=== PATIENT | female | born 1945 | race Caucasian/White ===

== ENCOUNTER → 2016-05-21 | Outpatient (CLI) | payer MEDICARE ==
[~2016-05-21] MED LIST: ACHD5005 PO; ACYC30OI TP; ALBU0.632 IH; ALLO100T PO; ALPR.5T PO; ASP81TEC PO; BUDE6HFA IH; DICY10CA12 PO; DICY10CA26 PO; DIOVAN; GBPN100C PO; INHALER; LEVO100T7 PO; LVT.112T PO; METH-290 PO; METO-272 PO; MOME13HF IH; NF-ESOM40C PO; ORPH100T PO; OXYGEN; PANT40TA3 PO; RITALIN; SIMV20TA3 PO; SIMV40TA4 PO; SYNTHROID; TRAM-42 PO; UBIQUINOL PO; VALA10004 PO; VALS1TAB15 PO; VALS1TAB80 PO; WRF2.5T PO
--- NOTE | 2016-05-21 18:37 | Diagnostic Imaging Report ---
Bilateral screening mammogram. The current study was also evaluated with a Computer Aided Detection (CAD) system. INDICATION: Screening. No current complaints stated on the questionnaire. COMPARISON: 05/17/15. FINDINGS: The breasts are composed of scattered fibroglandular densities. There are scattered benign-appearing calcifications. Allowing for technique and positional differences, no suspicious change is seen. IMPRESSION: No significant change. ACR BI-RADS Category 2: Benign findings. Result letter will be mailed to the patient. Note: At least 10% of breast cancer is not imaged by mammography. Dictated by: Dictated on workstation # [id number]
== END ==
LOC: RAD 10:02
DX: Z12.31 Encounter for screening mammogram for malignant neoplasm of breast (principal)

== ENCOUNTER → 2016-07-10 | Outpatient (CLI) | payer MEDICARE ==
--- OUTSIDE RECORDS SUMMARY | 2016-07-10 09:07 | XMS REPORT | Continuity of Care Document ---
Author Author [facility] Organization [facility] Address Unknown Phone Unavailable Allergies Active Description Code Type Severity Reaction Onset Reported/Identified Relationship to Patient Clinical Status Yes codeine [id number] Drug Allergy Unknown "MAKES ME CRAZY 08/13/2015 Medications 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 07/01/2011 Ot 562.10 DIVERTICULOSIS COLON (W/O MENT OF HEMORR 07/01/2011 Ot V58.69 OTH MED,LT,CURRENT USE 07/01/2011 Ot V76.51 SCREEN MAL NEOP-COLON 10/08/2011 Ot 272.4 HYPERLIPIDEMIA NEC/NOS 10/08/2011 Ot 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, WITHOUT CATAPLEXY 10/08/2011 Ot 401.9 HYPERTENSION NOS 10/08/2011 Ot 414.01 CORONARY ATHEROSCLEROSIS OF [place] CORON 10/08/2011 Ot 786.09 RESPIRATORY ABNORM NEC 10/08/2011 Ot 786.59 CHEST PAIN NEC 10/08/2011 Ot V58.69 OTH MED,LT,CURRENT USE 10/08/2011 Ot V85.38 BODY MASS INDEX 38.0-38.9, ADULT 11/13/2011 Ot 272.4 HYPERLIPIDEMIA NEC/NOS 11/13/2011 Ot 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, WITHOUT CATAPLEXY 11/13/2011 Ot 356.9 IDIO PERIPH NEURPTHY NOS 11/13/2011 Ot 401.9 HYPERTENSION NOS 11/13/2011 Ot 434.91 CEREBRAL ART OCCLUSION NOS W CEREBRAL IN 11/13/2011 Ot 493.20 CHRONIC OBSTRUCTIVE ASTHMA, NOS 11/13/2011 Ot 530.81 ESOPHAGEAL REFLUX 11/13/2011 Ot 729.89 MUSCSKEL SYMPT LIMB NEC 11/13/2011 Ot 780.57 UNSPECIFIED SLEEP APNEA 11/13/2011 Ot 784.59 OTHER SPEECH DISTURBANCE 11/19/2011 Ot 244.9 HYPOTHYROIDISM NOS 11/19/2011 Ot 272.4 HYPERLIPIDEMIA NEC/NOS 11/19/2011 Ot 311 DEPRESSIVE DISORDER NEC 11/19/2011 Ot 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, WITHOUT CATAPLEXY 11/19/2011 Ot 401.9 HYPERTENSION NOS 11/19/2011 Ot 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, SPEECH LA 11/19/2011 Ot 438.20 LATE EFF-CEREBR DIS,HEMIPLEGIA AFFECTING 11/19/2011 Ot 438.82 OTH LATE EFF-CEREB DIS, DYSPHAGIA 11/19/2011 Ot 493.90 ASTHMA, UNSPECIFIED 11/19/2011 Ot 530.81 ESOPHAGEAL REFLUX 11/19/2011 Ot 724.2 LUMBAGO 11/19/2011 Ot 780.57 UNSPECIFIED SLEEP APNEA 11/19/2011 Ot 782.3 EDEMA 11/19/2011 Ot 787.20 DYSPHAGIA, UNSPECIFIED 11/19/2011 Ot V57.1 PHYSICAL THERAPY NEC 11/19/2011 Ot V57.21 ENCOUNTER FOR OCCUPATIONAL THERAPY 11/19/2011 Ot V57.3 CARE INVOLVING SPEECH-LANGUAGE THERAPY 11/19/2011 Ot V58.61 ANTICOAGULANTS,LT,CURRENT USE 01/14/2012 Ot 438.89 OTH LATE EFFECT-CEREBROVASCULAR DISEASE 01/14/2012 Ot 729.89 MUSCSKEL SYMPT LIMB NEC 01/14/2012 Ot V57.1 PHYSICAL THERAPY NEC 06/17/2012 Ot 327.26 SLEEP RELATED HYPOVENTILATION/HYPOXEMIA 06/17/2012 Ot 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, WITHOUT CATAPLEXY 05/23/2014 SABRA STEPHENS, MARNI Richey Ot V76.12 06/16/2014 LARISA STEPHENS, CÉSAR Anh Ot 244.9 06/16/2014 LARISA STEPHENS, CÉSAR Kamara Ot 272.4 06/16/2014 LARISA STEPHENS, CÉSAR Kamara Ot 278.01 06/16/2014 LARISA STEPHENS, CÉSAR Kamara Ot 289.0 06/16/2014 LARISA STEPHENS, CÉSAR Kamara Ot 347.00 06/16/2014 LARISA STEPHENS, CÉSAR Anh Ot 401.9 06/16/2014 LARISA STEPHENS, CÉSAR Kamara Ot 493.90 06/16/2014 LARISA STEPHENS, CÉSAR Kamara Ot V12.54 06/16/2014 LARISA STEPHENS, CÉSAR Kamara Ot V58.61 06/16/2014 LARISA STEPHENS, CÉSAR Anh Ot V58.69 06/16/2014 LARISA STEPHENS, CÉSAR Kamara Ot V85.38 05/10/2015 Ot V76.12 05/10/2015 Ot 715.35 05/10/2015 Ot 722.52 05/10/2015 Ot 724.02 05/10/2015 Ot 553.1 05/10/2015 Ot 789.00 05/10/2015 Ot 729.5 05/10/2015 Ot 729.81 05/10/2015 Ot 790.99 05/10/2015 Ot V76.12 05/10/2015 Ot 244.9 05/10/2015 Ot 272.4 05/10/2015 Ot 282.7 05/10/2015 Ot 401.9 05/10/2015 Ot 493.90 05/10/2015 Ot 530.81 05/10/2015 Ot 790.6 05/10/2015 Ot 790.99 05/10/2015 Ot V45.77 05/10/2015 Ot V58.69 05/10/2015 Ot 244.9 05/10/2015 Ot 272.4 05/10/2015 Ot 289.0 05/10/2015 Ot 347.00 05/10/2015 Ot 401.9 05/10/2015 Ot 493.90 05/10/2015 Ot V58.69 05/10/2015 Ot 786.59 05/10/2015 Ot 786.09 05/10/2015 Ot 786.09 05/10/2015 Ot 244.9 05/10/2015 Ot 272.4 05/10/2015 Ot 289.0 05/10/2015 Ot 347.00 05/10/2015 Ot 401.9 05/10/2015 Ot 493.90 05/10/2015 Ot V58.69 05/10/2015 Ot V76.12 05/10/2015 Ot 244.9 05/10/2015 Ot 272.4 05/10/2015 Ot 278.01 05/10/2015 Ot 289.0 05/10/2015 Ot 347.00 05/10/2015 Ot 401.9 05/10/2015 Ot 493.90 05/10/2015 Ot V12.54 05/10/2015 Ot V58.69 05/10/2015 Ot 289.0 05/10/2015 LARSIA STEPHENS, CÉSAR Kamara Ot 244.9 05/10/2015 LARISA STEPHENS, CÉSAR Kamara Ot 272.4 05/10/2015 LARISA STEPHENS, CÉSAR Kamara Ot 278.01 05/10/2015 LARISA STEPHENS, CÉSAR Kamara Ot 289.0 05/10/2015 LARISA STEPHENS, CÉSAR Kamara Ot 347.00 05/10/2015 LARISA STEPHENS, CÉSAR Kamara Ot 401.9 05/10/2015 LARISA STEPHENS, CÉSAR Kamara Ot 493.90 05/10/2015 LARISA STEPHENS, CÉSAR Kamara Ot V12.54 05/10/2015 LARISA STEPHENS, CÉSAR Kamara Ot V58.61 05/10/2015 LARISA STEPHENS, CÉSAR Kamara Ot V58.69 05/10/2015 SABRA STEPHENS, MARNI Richey Ot V76.12 05/10/2015 LARISA STEPHENS, CÉSAR Kamara Ot 244.9 05/10/2015 LARISA STEPHENS, CÉSAR Kamara Ot 272.4 05/10/2015 LARISA STEPHENS, CÉSAR Kamara Ot 278.01 05/10/2015 LARISA STEPHENS, CÉSAR Kamara Ot 289.0 05/10/2015 LARISA STEPHENS, CÉSAR Kamara Ot 347.00 05/10/2015 LARISA STEPHENS, CÉSAR Kamara Ot 401.9 05/10/2015 LARISA STEPHENS, CÉSAR Kamara Ot 493.90 05/10/2015 LARISA STEPHENS, CÉSAR Kamara Ot V12.54 05/10/2015 LARISA STEPHENS, CÉSAR Kamara Ot V58.61 05/10/2015 LARISA STEPHENS, CÉSAR Kamara Ot V58.69 05/10/2015 LARISA STEPHENS, CÉSAR Kamara Ot V85.38 05/10/2015 SABRA STEPHENS, MARNI Richey Ot V76.12 05/17/2015 Ot V76.12 05/17/2015 Ot 715.35 05/17/2015 Ot 722.52 05/17/2015 Ot 724.02 05/17/2015 Ot 553.1 05/17/2015 Ot 789.00 05/17/2015 Ot 729.5 05/17/2015 Ot 729.81 05/17/2015 Ot 790.99 05/17/2015 Ot V76.12 05/17/2015 Ot 244.9 05/17/2015 Ot 272.4 05/17/2015 Ot 282.7 05/17/2015 Ot 401.9 05/17/2015 Ot 493.90 05/17/2015 Ot 530.81 05/17/2015 Ot 790.6 05/17/2015 Ot 790.99 05/17/2015 Ot V45.77 05/17/2015 Ot V58.69 05/17/2015 Ot 244.9 05/17/2015 Ot 272.4 05/17/2015 Ot 289.0 05/17/2015 Ot 347.00 05/17/2015 Ot 401.9 05/17/2015 Ot 493.90 05/17/2015 Ot V58.69 05/17/2015 Ot 786.59 05/17/2015 Ot 786.09 05/17/2015 Ot 786.09 05/17/2015 Ot 244.9 05/17/2015 Ot 272.4 05/17/2015 Ot 289.0 05/17/2015 Ot 347.00 05/17/2015 Ot 401.9 05/17/2015 Ot 493.90 05/17/2015 Ot V58.69 05/17/2015 Ot V76.12 05/17/2015 Ot 244.9 05/17/2015 Ot 272.4 05/17/2015 Ot 278.01 05/17/2015 Ot 289.0 05/17/2015 Ot 347.00 05/17/2015 Ot 401.9 05/17/2015 Ot 493.90 05/17/2015 Ot V12.54 05/17/2015 Ot V58.69 05/17/2015 Ot 289.0 05/17/2015 LARISA STEPHENS, CÉSAR Kamara Ot 244.9 05/17/2015 LARISA STEPHENS, CÉSAR Kamara Ot 272.4 05/17/2015 LARISA STEPHENS, CÉSAR Kamara Ot 278.01 05/17/2015 LAIRSA STEPHENS, CÉSAR Kamara Ot 289.0 05/17/2015 LARISA STEPHENS, CÉSAR Kamara Ot 347.00 05/17/2015 LARISA STEPHENS, CÉSAR Kamara Ot 401.9 05/17/2015 LARISA STEPHENS, CÉSAR Kamara Ot 493.90 05/17/2015 LARISA STEPHENS, CÉSAR Kamara Ot V12.54 05/17/2015 LARISA STEPHENS, CÉSAR Kamara Ot V58.61 05/17/2015 LARISA STEPHENS, CÉSAR Kamara Ot V58.69 05/17/2015 SABRA STEPHENS, MARNI Richey Ot V76.12 05/17/2015 LARISA STEPHENS, CÉSAR Kamara Ot 244.9 05/17/2015 LARISA STEPHENS, CÉSAR Anh Ot 272.4 05/17/2015 LARISA STEPHENS, CÉSAR Kamara Ot 278.01 05/17/2015 LARISA STEPHENS, CÉSAR Kamara Ot 289.0 05/17/2015 LARISA STEPHENS, CÉSAR Kamara Ot 347.00 05/17/2015 LARISA STEPHENS, CÉSAR Anh Ot 401.9 05/17/2015 LARISA STEPHENS, CÉSAR Anh Ot 493.90 05/17/2015 LARISA STEPHENS, CÉSAR Kamara Ot V12.54 05/17/2015 LARISA STEPHENS, CÉSAR Kamara Ot V58.61 05/17/2015 LARISA STEPHENS, CÉSAR Kamara Ot V58.69 05/17/2015 LARISA STEPHENS, CÉSAR Kamara Ot V85.38 05/17/2015 SABRA STEPHENS, MARNI D Ot V76.12 05/17/2015 SABRA STEPHENS, MARNI D Ot M47.896 05/30/2015 SABRA STEPHENS, MARNI D Ot M47.896 06/09/2015 SABRA STEPHENS, MARNI D Ot M47.26 06/09/2015 SABRA STEPHENS, MARNI D Ot Z12.31 08/13/2015 ANDRE SUN DO Ot M54.6 PAIN IN THORACIC SPINE 08/13/2015 CORINNE ANDRE BUSTOS Ot R07.89 OTHER CHEST PAIN 08/14/2015 ANDRE SUN DO Ot M54.6 08/14/2015 ANDRE SUN DO Ot R07.89 08/15/2015 ANDRE SUN DO Ot M54.6 08/15/2015 CORINNE ANDRE BUSTOS Ot R07.89 05/21/2016 Ot 715.35 LOC OSTEOARTH NOS-PELVIS 05/21/2016 Ot 722.52 LUMB/LUMBOSAC DISC DEGEN 05/21/2016 Ot 724.02 SPINAL STENOSIS, LUMBAR REG, W/OUT NEURO 05/21/2016 Ot 553.1 UMBILICAL HERNIA 05/21/2016 Ot 789.00 ABDOMINAL PAIN, UNSPECIFIED SITE 05/21/2016 Ot 729.5 PAIN IN LIMB 05/21/2016 Ot 729.81 SWELLING OF LIMB 05/21/2016 Ot 790.99 BLOOD EXAM - OTH NONSPECIFIC FINDINGS 05/21/2016 Ot V76.12 OTH SCREEN MAMMO-MALIGN NEOPLASM OF [place] 05/21/2016 Ot 244.9 HYPOTHYROIDISM NOS 05/21/2016 Ot 272.4 HYPERLIPIDEMIA NEC/NOS 05/21/2016 Ot 282.7 HEMOGLOBINOPATHIES NEC 05/21/2016 Ot 401.9 HYPERTENSION NOS 05/21/2016 Ot 493.90 ASTHMA, UNSPECIFIED 05/21/2016 Ot 530.81 ESOPHAGEAL REFLUX 05/21/2016 Ot 790.6 ABN BLOOD CHEMISTRY NEC 05/21/2016 Ot 790.99 BLOOD EXAM - OTH NONSPECIFIC FINDINGS 05/21/2016 Ot V45.77 ACQRD ABSENCE OF GENITAL ORGANS 05/21/2016 Ot V58.69 OTH MED,LT,CURRENT USE 05/21/2016 Ot 244.9 HYPOTHYROIDISM NOS 05/21/2016 Ot 272.4 HYPERLIPIDEMIA NEC/NOS 05/21/2016 Ot 289.0 SECONDARY POLYCYTHEMIA 05/21/2016 Ot 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, WITHOUT CATAPLEXY 05/21/2016 Ot 401.9 HYPERTENSION NOS 05/21/2016 Ot 493.90 ASTHMA, UNSPECIFIED 05/21/2016 Ot V58.69 OTH MED,LT,CURRENT USE 05/21/2016 Ot 786.59 CHEST PAIN NEC 05/21/2016 Ot 786.09 RESPIRATORY ABNORM NEC 05/21/2016 Ot 786.09 RESPIRATORY ABNORM NEC 05/21/2016 Ot 244.9 HYPOTHYROIDISM NOS 05/21/2016 Ot 272.4 HYPERLIPIDEMIA NEC/NOS 05/21/2016 Ot 289.0 SECONDARY POLYCYTHEMIA 05/21/2016 Ot 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, WITHOUT CATAPLEXY 05/21/2016 Ot 401.9 HYPERTENSION NOS 05/21/2016 Ot 493.90 ASTHMA, UNSPECIFIED 05/21/2016 Ot V58.69 OTH MED,LT,CURRENT USE 05/21/2016 Ot V76.12 OTH SCREEN MAMMO-MALIGN NEOPLASM OF [place] 05/21/2016 Ot 244.9 HYPOTHYROIDISM NOS 05/21/2016 Ot 272.4 HYPERLIPIDEMIA NEC/NOS 05/21/2016 Ot 278.01 MORBID OBESITY 05/21/2016 Ot 289.0 SECONDARY POLYCYTHEMIA 05/21/2016 Ot 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, WITHOUT CATAPLEXY 05/21/2016 Ot 401.9 HYPERTENSION NOS 05/21/2016 Ot 493.90 ASTHMA, UNSPECIFIED 05/21/2016 Ot V12.54 PERSONAL HX OF TIA, CEREBRAL INFARCTION 05/21/2016 Ot V58.69 OTH MED,LT,CURRENT USE 05/21/2016 Ot 289.0 SECONDARY POLYCYTHEMIA 05/21/2016 CÉSAR PERES MD Ot 244.9 HYPOTHYROIDISM NOS 05/21/2016 LARISA STEPHENS, CÉSAR Kamara Ot 272.4 HYPERLIPIDEMIA NEC/NOS 05/21/2016 CÉSAR PERES MD Ot 278.01 MORBID OBESITY 05/21/2016 CÉSAR PERES MD Ot 289.0 SECONDARY POLYCYTHEMIA 05/21/2016 CÉSAR PERES MD Ot 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, WITHOUT CATAPLEXY 05/21/2016 LARISA STEPHENS CÉSAR Anh Ot 401.9 HYPERTENSION NOS 05/21/2016 LARISA STEPHENS, CÉSAR Anh Ot 493.90 ASTHMA, UNSPECIFIED 05/21/2016 LARISA STEPHENS CÉSAR Anh Ot V12.54 PERSONAL HX OF TIA, CEREBRAL INFARCTION 05/21/2016 LARISA STEPHENS CÉSAR Anh Ot V58.61 ANTICOAGULANTS,LT,CURRENT USE 05/21/2016 LARISA STEPHENS CÉSAR Anh Ot V58.69 OTH MED,LT,CURRENT USE 05/21/2016 MARNI MONTAÑO MD Ot V76.12 OTH SCREEN MAMMO-MALIGN NEOPLASM OF [place] 05/21/2016 CÉSAR PERES MD Ot 244.9 HYPOTHYROIDISM NOS 05/21/2016 CÉSAR PERES MD Ot 272.4 HYPERLIPIDEMIA NEC/NOS 05/21/2016 CÉSAR PERES MD Ot 278.01 MORBID OBESITY 05/21/2016 CÉSAR PERES MD Ot 289.0 SECONDARY POLYCYTHEMIA 05/21/2016 CÉSAR PERES MD Ot 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, WITHOUT CATAPLEXY 05/21/2016 LARISA STEPHENS CÉSAR Anh Ot 401.9 HYPERTENSION NOS 05/21/2016 LARISA STEPHENS, CÉSAR Anh Ot 493.90 ASTHMA, UNSPECIFIED 05/21/2016 LARISA STEPHENS CÉSAR Anh Ot V12.54 PERSONAL HX OF TIA, CEREBRAL INFARCTION 05/21/2016 LARISA STEPHENS CÉSAR Anh Ot V58.61 ANTICOAGULANTS,LT,CURRENT USE 05/21/2016 LARISA STEPHENS CÉSAR Anh Ot V58.69 OTH MED,LT,CURRENT USE 05/21/2016 LARISA STEPHENS CÉSAR Anh Ot V85.38 BODY MASS INDEX 38.0-38.9, ADULT 05/21/2016 MARNI MONTAÑO MD Ot V76.12 OTH SCREEN MAMMO-MALIGN NEOPLASM OF [place] 05/21/2016 MARNI MONTAÑO MD Ot M47.26 OTHER SPONDYLOSIS WITH RADICULOPATHY, TARI 05/21/2016 MARNI MONTAÑO MD Ot Z12.31 ENCNTR SCREEN MAMMOGRAM FOR MALIGNANT NE 05/21/2016 MARNI MONTAÑO MD Ot M47.896 OTHER SPONDYLOSIS, LUMBAR REGION 05/21/2016 MARNI MONTAÑO MD Ot Z12.31 ENCNTR SCREEN MAMMOGRAM FOR MALIGNANT NE 05/22/2016 MARNI MONTAÑO MD Ot Z12.31 ENCNTR SCREEN MAMMOGRAM FOR MALIGNANT NE 05/22/2016 MARNI MONTAÑO MD Ot Z12.31 ENCNTR SCREEN MAMMOGRAM FOR MALIGNANT NE 05/22/2016 MARNI MONTAÑO MD Ot Z12.31 ENCNTR SCREEN MAMMOGRAM FOR MALIGNANT NE 05/22/2016 MARNI MONTAÑO MD Ot Z12.31 ENCNTR SCREEN MAMMOGRAM FOR MALIGNANT NE 05/23/2016 MARNI MONTAÑO MD Ot Z12.31 ENCNTR SCREEN MAMMOGRAM FOR MALIGNANT NE 05/23/2016 MARNI MONTAÑO MD Ot Z12.31 ENCNTR SCREEN MAMMOGRAM FOR MALIGNANT NE 05/23/2016 MARNI MONTAÑO MD Ot Z12.31 ENCNTR SCREEN MAMMOGRAM FOR MALIGNANT NE 05/24/2016 MARNI MONTAÑO MD Ot Z12.31 ENCNTR SCREEN MAMMOGRAM FOR MALIGNANT NE 06/12/2016 MARNI MONTAÑO MD Ot Z12.31 ENCNTR SCREEN MAMMOGRAM FOR MALIGNANT NE Procedures Results Encounters ACCT No. Visit Date/Time Discharge Status Pt. Type Provider Facility Loc./Unit Complaint [id number] 08/13/2015 19:33:00 2015 22:21:00 DIS Emergency CORINNE DOANDRE [facility] ER CHEST TO BACK PAIN ON LEFT SIDE [id number] 04/28/2014 14:29:00 2013 23:59:59 CLS Outpatient MARNI MONTAÑO MD [facility] RAD SCREENING [id number] 06/15/2013 09:50:00 2013 23:59:59 CLS Outpatient CÉSAR PERES MD [facility] ONC [id number] 05/07/2013 09:57:00 2012 23:59:59 CLS Outpatient MARNI MONTAÑO MD [facility] RAD SCREENING [id number] 12/01/2012 09:43:00 2012 23:59:59 CLS Outpatient CÉSAR PERES MD [facility] ONC [id number] 05/21/2016 10:02:00 ACT Outpatient MARNI MONTAÑO MD [facility] RAD SCREENING [id number] 05/17/2015 08:22:00 ACT Outpatient MARNI MONTAÑO MD [facility] RAD LOW BACK PAIN,MAMMO SCREENING [id number] 05/10/2015 09:51:00 ACT Outpatient MARNI MONTAÑO MD [facility] RAD LOW BACK PAIN [id number] 05/10/2015 09:47:00 Document Registration [id number] 06/25/2012 11:16:00 Document Registration [id number] 06/16/2012 20:16:00 Document Registration [id number] 06/09/2012 09:34:00 Document Registration [id number] 05/04/2012 09:44:00 Document Registration [id number] 01/02/2012 13:37:00 Document Registration [id number] 12/10/2011 09:47:00 Document Registration [id number] 11/13/2011 12:50:00 Document Registration [id number] 11/11/2011 10:51:00 Document Registration [id number] 11/06/2011 14:11:00 Document Registration [id number] 10/08/2011 12:30:00 Document Registration [id number] 10/04/2011 13:36:00 Document Registration [id number] 09/26/2011 07:38:00 Document Registration [id number] 07/01/2011 07:10:00 Document Registration [id number] 05/28/2011 12:50:00 Document Registration [id number] 05/02/2011 09:02:00 Document Registration [id number] 04/30/2011 13:23:00 Document Registration [id number] 04/19/2011 08:08:00 Document Registration [id number] 03/29/2011 14:57:00 Document Registration [id number] 03/22/2011 08:05:00 Document Registration [id number] 12/28/2010 09:48:00 Document Registration [id number] 12/21/2010 08:12:00 Document Registration [id number] 05/01/2010 08:57:00 Document Registration
--- NOTE | 2016-07-10 12:39 | Diagnostic Imaging Report ---
PROCEDURE: US Carotid Duplex Bilateral. TECHNIQUE: Multiple real-time grayscale images were obtained over the carotid arteries in various projections bilaterally. Additional duplex Doppler and color Doppler images were also obtained. INDICATION: Carotid artery stenosis. FINDINGS: The previous carotid Doppler exam performed on 11/12/2011 noted mild atherosclerotic plaque involving both carotid systems but failed to show any sign of a hemodynamically significant stenosis. On this study, the internal carotid arteries were difficult to visualize. However, there does not appear to be any significant atherosclerotic plaque formation. The flow velocities also failed to show any sign of a hemodynamically significant stenosis of the common or internal carotid arteries. The flow velocities are as follows: Mid CCA: Right 53.9, left 98.5. Proximal ICA: Right 46.6, left 67.2. Mid ICA: Right 40.5, left 60.7. IC/CC: Right 0.9, left 0.7. Both vertebral arteries are identified and there is antegrade flow bilaterally. IMPRESSION: There is mild atherosclerotic disease involving both carotid systems, but there is no evidence for a hemodynamically significant stenosis of the common or internal carotid arteries. Overall, there has been no significant change since the prior exam. Dictated by: Dictated on workstation # [id number]
== END ==
LOC: RAD 09:03
DX: I65.23 Occlusion and stenosis of bilateral carotid arteries (principal)
CPT/HCPCS: 93880

== ENCOUNTER 2016-12-24 22:21 | Emergency (ER) | payer MEDICARE ==
[~2016-12-24] VITALS: Ht 167.6 cm; Wt 102.1 kg
[2016-12-24] MEDS ORDERED: LEVO88TA54 (22:35)
[2016-12-24] MEDS ORDERED: PENI500T (22:35)
--- NOTE | 2016-12-24 22:43 | ED EENT ---
History of Present Illness General Chief Complaint: Dental Problems/Pain Stated Complaint: BLEEDING AFTER DENTAL SURG, TAKES BLOOD THINNER Source: patient, other (dentist) Exam Limitations: no limitations History of Present Illness Time seen by provider: 22:38 Initial Comments Patient presents to ER by private conveyance with chief complaint of bleeding from the right upper gums after a dental procedure where she had bone graft from a dental root extraction. The procedure was today. The patient is on Coumadin. She feels she is getting some large clots ever doctor the clot out she had a gush of blood. She denies chest pain, nausea, shortness of breath. She has no prior coronary disease however she had a coronary catheter that was negative by Dr. Mcneil in a few days after that developed a CVA unrelated and after that is the reason why she is on Coumadin according the patient. She says she takes one half tablets on Mondays and and other days she take one tablet but is not sure what the doses. She did not take her Coumadin tonight. Denying dizziness or lightheadedness. Allergies and Home Medications Allergies Coded Allergies: codeine (Unverified Allergy, Unknown, "MAKES ME CRAZY", 08/13/15) Home Medications Allopurinol 100 Mg Tablet, 1 TAB PO DAILY, #90 (Reported) Alprazolam 0.5 Mg Tablet, 1 TAB PO TID PRN, (Reported) Hctz/Valsartan 1 Each Tablet, 1 TAB PO DAILY, (Reported) Levothyroxine Sodium 88 Mcg Tablet, #30 (Reported) Methylphenidate Hcl 10 Mg Tablet.sa, 20 MG PO TID, (Reported) Metoprolol Succinate 50 Mg Tab.sr.24h, 1 EACH PO DAILY, (Reported) Pantoprazole Sodium 40 Mg Tablet.dr, 1 TAB PO DAILY, #90 (Reported) Penicillin V Potassium 500 Mg Tablet, #32 (Reported) Simvastatin 20 Mg Tablet, 1 TAB PO DAILY, #90 (Reported) Tramadol HCl 50 Mg Tablet, 50 MG PO Q4H, #20 Prescribed by: ANDRE SUN on 08/13/153 Valacyclovir HCl 1,000 Mg Tablet, 1,000 MG PO TID, #30 Prescribed by: ANDRE SUN on 08/13/153 Valsartan/Hydrochlorothiazide 1 Each Tablet, 1 TAB PO DAILY, #90 (Reported) Warfarin Sod 2.5 Mg Tab, 4 MG PO DAILY@18, (Reported) Review of Systems Constitutional: No chills, No diaphoresis, No fever, No malaise Eyes: Denies Blindness, Denies Pain, Denies Photophobia Mouth: clots, pain (negligible), swelling, bloody discharge, previous injury Throat: denies pain, denies swelling, denies hoarse Respiratory: No cough, No short of breath Cardiovascular: No chest pain, No palpitations Gastrointestinal: No constipation, No diarrhea, No nausea, No vomiting Musculoskeletal: No back pain, No joint pain Skin: No pruritus, No rash Neurological: Denies Headache, Denies Numbness, Denies Paresthesia Past Aochnqt-Bixdja-Szsqti Hx Patient Social History Alcohol Use: Denies Use Recreational Drug Use: No Smoking Status: Never a Smoker Recent Foreign Travel: No Contact w/Someone Who Travel: No Recent Hopitalizations: No Immunizations Up To Date Date of Pneumonia Vaccine: Nov 11, 2011 Date of Influenza Vaccine: Jan 17, 2011 Seasonal Allergies Seasonal Allergies: No Surgeries HX Surgeries: Yes (HYSTERECTOMY/RECTAL FISTULA/GALLBLADDER REMOVED) Surgeries: Eye Surgery, Gallbladder, Hysterectomy, Rectal Respiratory Hx Respiratory Disorders: Yes Respiratory Disorders: Asthma Cardiovascular Hx Cardiac Disorders: Yes Cardiac Disorders: High Cholesterol, Hypertension Neurological Hx Neurological Disorders: No Reproductive System Hx 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, 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 Genitourinary Hx Genitourinary Disorders: No Gastrointestinal Hx Gastrointestinal Disorders: No Musculoskeletal Hx Musculoskeletal Disorders: Yes Musculoskeletal Disorders: Arthritis Endocrine Hx Endocrine Disorders: Yes Endocrine Disorders: Diabetes, Non-Insulin dep HEENT HX ENT Disorders: No Cancer Hx Cancer: No Psychosocial Hx Psychiatric Problems: Yes Behavioral Health Disorders: Anxiety Integumentary HX Skin/Integumentary Disorder: Yes (SHINGLES) Blood Transfusions Hx Blood Disorders: No Adverse Reaction to a Blood Tr: No Physical Exam Vital Signs Vital Sign - Last 12Hours 12/24/16 22:26 Temp 97.2 Pulse 81 Resp 20 B/P (MAP) 165/97 Pulse Ox 92 O2 Delivery Room Air General Appearance: WD/WN, no apparent distress Nose: normal inspection, No active bleeding Mouth/Throat: dental tenderness, pharynx swelling, pharynx tenderness, other ( bleeding right upper frontal part of her gums) Neck: non-tender, supple, normal inspection Cardiovascular: normal peripheral pulses, regular rate, rhythm Respiratory: lungs clear, normal breath sounds Neurologic/Psychiatric: alert, oriented x 3 Skin: normal color, warm/dry Progress/Results/Core Measures Results/Orders Lab Results Laboratory Tests Test 12/24/16 23:00 Range/Units White Blood Count 13.0 H 4.3-11.0 10^3/uL Red Blood Count 4.70 4.35-5.85 10^6/uL Hemoglobin 14.2 11.5-16.0 G/DL Hematocrit 44 35-52 % Mean Corpuscular Volume 93 80-99 FL Mean Corpuscular Hemoglobin 30 25-34 PG Mean Corpuscular Hemoglobin Concent 32 32-36 G/DL Red Cell Distribution Width 13.9 10.0-14.5 % Platelet Count 309 130-400 10^3/uL Mean Platelet Volume 9.5 7.4-10.4 FL Prothrombin Time 41.0 H 12.2-14.7 SEC INR Comment 4.2 H 0.8-1.4 Activated Partial Thromboplast Time 56 H 24-35 SEC My Orders Orders - SUZANNE HENNING Cbc No Diff (12/24/16 22:44) Protime With Inr (12/24/16 22:44) Partial Thromboplastin Time (12/24/16 22:44) Tranexamic Acid Injection (Cyklokapron I (12/24/16 22:45) Medications Given in ED Current Medications Medications Dose Ordered Sig/Kate Route Start Time Stop Time Status Last Admin Dose Admin Tranexamic Acid 1,000 mg ONCE ONCE IV 12/24/16 22:45 12/24/16 22:49 DC 12/24/16 22:59 1,000 MG Vital Signs/I&O Vital Sign - Last 12Hours 12/24/16 22:26 Temp 97.2 Pulse 81 Resp 20 B/P (MAP) 165/97 Pulse Ox 92 O2 Delivery Room Air Progress Note : Time: 22:50 Progress Note Patient feels that her bleeding has slowed considerably some but still every time she wakes up a clot has increased bleeding. Agreed with TXA impregnated gauze strictly to the site for at least 20 minutes and check PT/INR while holding pressure. I have encouraged her not to swallow her secretions and at the first sign of nausea she should we did give her some antinausea medicine. Her pain is under good control the time. We discussed the risks benefits and alternatives to stopping the Coumadin versus keeping the coming going and get her bleeding to stop and send her home a little TXA then it may be reasonable to just keep her on her Coumadin. Follow-up in a day or 2 with her PCP and/or dentist. Departure Impression Impression: Primary Impression: Surgical wound hemorrhage after dental procedure Additional Impression: Warfarin anticoagulation Disposition: HOME, SELF-CARE Condition: Improved Departure-Patient Inst. Decision time for Depature: 00:13 Referrals: MARNI MONTAÑO MD (PCP/Family) Primary Care Physician Patient Instructions: Anti-Clotting Medicines: Warfarin (Coumadin) Add. Discharge Instructions: Do not take your warfarin tonight or tomorrow. Plan on seeing your primary care physician in the next day or 2 to have your INR rechecked. It was 4.2 this night in the ER. If you're still having bleeding you should apply cotton gauze for the next 2 days directly to the site. If this does not stop the bleeding then you should take and apply 2-3 cc of the tranexamic acid solution to a rolled up piece of gauze and apply that directly to the socket. Hold that firmly in place and do not open her mouth for at least 30 minutes. Plan on contacting your dentist tomorrow. If you have new or worrisome symptoms such as fevers nausea or vomiting you can return to the ER. Do not swallow your secretions as this may contribute to nausea and vomiting. All discharge instructions reviewed with patient and/or family. Voiced understanding. Copy Copies To 1: MARNI MONTAÑO MD, TITUS J Dec 24, 2016 22:43
[2016-12-24] MEDS ORDERED: TRANEXAMIC ACID 100 MG/ML 10 ML INJECTION IV ONE (22:45)
[2016-12-24 23:13] LABS: MEAN PLATELET VOLUME 9.5 FL (7.4-10.4); RED BLOOD COUNT 4.7 10^6/uL (4.35-5.85); RED CELL DISTRIBUTION WIDTH 13.9 % (10.0-14.5)
[2016-12-24 23:28] LABS: INR 4.2 (0.8-1.4)
[2016-12-25 00:25] VITALS: BP 149/81
== END 2016-12-25 00:19 | disposition home or self-care (01) ==
LOC: EDUNIT# 22:21 → ER 22:23
DX: K91.840 Postprocedural hemorrhage of a digestive system organ or structure following a digestive system procedure (principal); F41.9 Anxiety disorder, unspecified; E11.9 Type 2 diabetes mellitus without complications; E78.00 Pure hypercholesterolemia, unspecified; I10 Essential (primary) hypertension; M19.90 Unspecified osteoarthritis, unspecified site; Z90.710 Acquired absence of both cervix and uterus; Z79.01 Long term (current) use of anticoagulants
CPT/HCPCS: 36415; 85027; 85610; 85730; 96374; 99282

== ENCOUNTER 2017-02-03 12:15 | Emergency (ER) | payer MEDICARE ==
[~2017-02-03] VITALS: Ht 167.6 cm; Wt 99.8 kg
[~2017-02-03 12:15] MED LIST changes: +LEVO88TA54; +PENI500T
[2017-02-03 12:44] LABS: BASOPHILS % (AUTO) 0 % (0-10); EOSINOPHILS # (AUTO) 0.1 10^3/uL (0.0-0.3); EOSINOPHILS % (AUTO) 1 % (0-10); LYMPHOCYTES # (AUTO) 2.5 X 10^3 (1.0-4.0); LYMPHOCYTES % (AUTO) 23 % (12-44); MEAN CORPUSCULAR HEMOGLOBIN 30 PG (25-34); MEAN CORPUSCULAR HGB CONC 32 G/DL (32-36); MEAN CORPUSCULAR VOLUME 94 FL (80-99); MEAN PLATELET VOLUME 9.3 FL (7.4-10.4); MONOCYTES # (AUTO) 0.8 X 10^3 (0.0-1.0); MONOCYTES % (AUTO) 8 % (0-12); NEUTROPHILS # (AUTO) 7.5 X 10^3 (1.8-7.8); NEUTROPHILS % (AUTO) 68 % (42-75); PLATELET COUNT 311 10^3/uL (130-400); RED BLOOD COUNT 4.64 10^6/uL (4.35-5.85); RED CELL DISTRIBUTION WIDTH 14.7 % (10.0-14.5); WHITE BLOOD COUNT 10.9 10^3/uL (4.3-11.0)
[2017-02-03 12:57] LABS: INR 1.8 (0.8-1.4); PROTHROMBIN TIME PATIENT 20.6 SEC (12.2-14.7)
--- NOTE | 2017-02-03 13:00 | Diagnostic Imaging Report ---
INDICATION: Acute onset shortness of breath, almost blacked Out while driving today. TECHNIQUE: Single view chest 12:43 PM. CORRELATION STUDY: 08/13/2015 FINDINGS: The heart size, mediastinal configuration and pulmonary vascularity are within normal limits. The lungs are clear with no consolidating infiltrate. There is no significant effusion or pneumothorax. Slight rotation of the patient versus rightward curvature of the thoracic spine. IMPRESSION: 1. Negative portable chest. Dictated by: Dictated on workstation # [id number]
[2017-02-03 13:08] LABS: ALANINE AMINOTRANSFERASE 16 U/L (0-55); ALBUMIN 3.8 GM/DL (3.2-4.5); ANION GAP 12 MMOL/L (5-14); ASPARTATE AMINO TRANSFERASE 16 U/L (5-34); BILIRUBIN,TOTAL 0.6 MG/DL (0.1-1.0); BLOOD UREA NITROGEN 29 MG/DL (7-18); BUN/CREATININE RATIO 19; CALCIUM 9.6 MG/DL (8.5-10.1); CARBON DIOXIDE 26 MMOL/L (21-32); CHLORIDE 101 MMOL/L (98-107); CREATININE SERUM 1.54 MG/DL (0.60-1.30); GFR ESTIMATED 33; GLUCOSE 166 MG/DL (70-105); MAGNESIUM 1.8 MG/DL (1.8-2.4); POTASSIUM 3.5 MMOL/L (3.6-5.0); SODIUM 139 MMOL/L (135-145); TOTAL PROTEIN 6.8 GM/DL (6.4-8.2)
--- NOTE | 2017-02-03 13:22 | ED General ---
General Chief Complaint: Dizziness/Syncope Stated Complaint: LABORED BREATHING/HEAD PAIN/CP Nursing Triage Note: PT STATES DIZZINESS, FELT LIKE MAY PASS OUT, OK NOW Nursing Sepsis Screen: No Definite Risk Source of Information: Patient Exam Limitations: No Limitations History of Present Illness Time Seen by Provider: 12:19 Initial Comments This 71-year-old woman presents to the emergency room with complaints of light headedness. She has had some occasional episodes recently but today had a significant episode while driving in [place]. She tried deep breathing because she felt like she was not getting enough oxygen. This improved her situation some. She tried to walk into a book store but became too lightheaded to continue. Patient takes warfarin for a prior stroke. She has difficulty with managing her INR. Symptoms are worse when upright and when walking. She also has some worsening with head movements. She recently took a round of cephalexin because of elevated WBC. She states no specific infection was identified. Patient does have a history of narcolepsy, stroke, hypothyroidism, and hypertension. Review of her chart notes a cardiac catheterization from 2011 showing normal coronary arteries and an ejection fraction of 70 percent. She also had carotid ultrasound studies performed in June showing no stenosis. Patient reports her symptoms are specifically lightheadedness described as a pre-syncope sensation. She denies any vertigo or disequilibrium. Allergies and Home Medications Allergies Coded Allergies: codeine (Unverified Allergy, Unknown, "MAKES ME CRAZY", 08/13/15) Home Medications Allopurinol 100 Mg Tablet, 1 TAB PO DAILY, #90 (Reported) Alprazolam 0.5 Mg Tablet, 1 TAB PO TID PRN, (Reported) Hctz/Valsartan 1 Each Tablet, 1 TAB PO DAILY, (Reported) Levothyroxine Sodium 88 Mcg Tablet, #30 (Reported) Methylphenidate Hcl 10 Mg Tablet.sa, 20 MG PO TID, (Reported) Metoprolol Succinate 50 Mg Tab.sr.24h, 1 EACH PO DAILY, (Reported) Pantoprazole Sodium 40 Mg Tablet.dr, 1 TAB PO DAILY, #90 (Reported) Penicillin V Potassium 500 Mg Tablet, #32 (Reported) Simvastatin 20 Mg Tablet, 1 TAB PO DAILY, #90 (Reported) Tramadol HCl 50 Mg Tablet, 50 MG PO Q4H, #20 Prescribed by: ANDRE SUN on 08/13/152202 Valacyclovir HCl 1,000 Mg Tablet, 1,000 MG PO TID, #30 Prescribed by: ANDRE SUN on 08/13/153 Valsartan/Hydrochlorothiazide 1 Each Tablet, 1 TAB PO DAILY, #90 (Reported) Warfarin Sod 2.5 Mg Tab, 4 MG PO DAILY@18, (Reported) Constitutional: no symptoms reported EENTM: no symptoms reported Respiratory: no symptoms reported Cardiovascular: see HPI Gastrointestinal: no symptoms reported Genitourinary: no symptoms reported : No Musculoskeletal: no symptoms reported Skin: no symptoms reported Psychiatric/Neurological: See HPI Hematologic/Lymphatic: No Symptoms Reported Immunological/Allergic: no symptoms reported Past Jcprqrt-Mecoxc-Lkjuon Hx Patient Social History Recent Foreign Travel: No Contact w/Someone Who Travel: No Recent Infectious Disease Expo: No Recent Hopitalizations: No Immunizations Up To Date Date of Pneumonia Vaccine: Nov 11, 2011 Date of Influenza Vaccine: Jan 17, 2011 Seasonal Allergies Seasonal Allergies: No Surgeries History of Surgeries: Yes (HYSTERECTOMY/RECTAL FISTULA/GALLBLADDER REMOVED) Surgeries: Cardiac (cardiac catheter without interventions 2011), Eye Surgery, Gallbladder, Hysterectomy, Rectal Respiratory History of Respiratory Disorde: Yes Respiratory Disorders: Asthma Currently Using CPAP: No Currently Using BIPAP: No Cardiovascular History of Cardiac Disorders: Yes Cardiac Disorders: High Cholesterol, Hypertension Neurological History of Neurological Disord: Yes (narcolepsy) Neurological Disorders: Stroke Reproductive System Hx Reproductive Disorders: Yes 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, 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 Genitourinary History of Genitourinary Disor: No Gastrointestinal History of Gastrointestinal Di: No Musculoskeletal History of Musculoskeletal Dis: Yes Musculoskeletal Disorders: Arthritis Endocrine History of Endocrine Disorders: Yes Endocrine Disorders: Hypothyroidsim, Diabetes, Non-Insulin dep HEENT History of HEENT Disorders: No Cancer History of Cancer: No Psychosocial History of Psychiatric Problem: Yes Behavioral Health Disorders: Anxiety Integumentary History of Skin or Integumenta: Yes (SHINGLES) Blood Transfusions History of Blood Disorders: No Adverse Reaction to a Blood Tr: No Physical Exam Vital Signs Vital Sign - Last 12Hours 02/03/17 12:15 Temp 97.8 Pulse 85 Resp 18 B/P (MAP) 148/59 Pulse Ox 95 Capillary Refill : Less Than 3 Seconds General Appearance: No Apparent Distress, WD/WN HEENT: PERRL/EOMI, TMs Normal, Normal ENT Inspection, Pharynx Normal Neck: Normal Inspection, Supple, No Carotid Bruit, No JVD Respiratory: Lungs Clear, Normal Breath Sounds, No Accessory Muscle Use, No Respiratory Distress Cardiovascular: Regular Rate, Rhythm, No Edema, No Murmur, Normal Peripheral Pulses Gastrointestinal: Normal Bowel Sounds, Non Tender, Soft Extremity: Normal Inspection, No Pedal Edema Neurologic/Psychiatric: Alert, Oriented x3, No Motor/Sensory Deficits, Normal 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, 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 Norm as Tested Skin: Normal Color, Warm/Dry Progress/Results/Core Measures Results/Orders Lab Results Laboratory Tests Test 02/03/17 12:30 Range/Units White Blood Count 10.9 4.3-11.0 10^3/uL Red Blood Count 4.64 4.35-5.85 10^6/uL Hemoglobin 14.0 11.5-16.0 G/DL Hematocrit 44 35-52 % Mean Corpuscular Volume 94 80-99 FL Mean Corpuscular Hemoglobin 30 25-34 PG Mean Corpuscular Hemoglobin Concent 32 32-36 G/DL Red Cell Distribution Width 14.7 H 10.0-14.5 % Platelet Count 311 130-400 10^3/uL Mean Platelet Volume 9.3 7.4-10.4 FL Neutrophils (%) (Auto) 68 42-75 % Lymphocytes (%) (Auto) 23 12-44 % Monocytes (%) (Auto) 8 0-12 % Eosinophils (%) (Auto) 1 0-10 % Basophils (%) (Auto) 0 0-10 % Neutrophils # (Auto) 7.5 1.8-7.8 X 10^3 Lymphocytes # (Auto) 2.5 1.0-4.0 X 10^3 Monocytes # (Auto) 0.8 0.0-1.0 X 10^3 Eosinophils # (Auto) 0.1 0.0-0.3 10^3/uL Basophils # (Auto) 0.0 0.0-0.1 10^3/uL Prothrombin Time 20.6 H 12.2-14.7 SEC INR Comment 1.8 H 0.8-1.4 Activated Partial Thromboplast Time 32 24-35 SEC Sodium Level 139 135-145 MMOL/L Potassium Level 3.5 L 3.6-5.0 MMOL/L Chloride Level 101 98-107 MMOL/L Carbon Dioxide Level 26 21-32 MMOL/L Anion Gap 12 5-14 MMOL/L Blood Urea Nitrogen 29 H 7-18 MG/DL Creatinine 1.54 H 0.60-1.30 MG/DL Estimat Glomerular Filtration Rate 33 BUN/Creatinine Ratio 19 Glucose Level 166 H 70-105 MG/DL Calcium Level 9.6 8.5-10.1 MG/DL Magnesium Level 1.8 1.8-2.4 MG/DL Total Bilirubin 0.6 0.1-1.0 MG/DL Aspartate Amino Transf (AST/SGOT) 16 5-34 U/L Alanine Aminotransferase (ALT/SGPT) 16 0-55 U/L Alkaline Phosphatase 74 40-136 U/L Myoglobin 62.7 10.0-92.0 NG/ML Troponin I < 0.30 <0.30 NG/ML Total Protein 6.8 6.4-8.2 GM/DL Albumin 3.8 3.2-4.5 GM/DL Thyroid Stimulating Hormone (TSH) 1.44 0.35-4.94 UIU/ML Free Thyroxine 1.16 0.70-1.48 NG/DL My Orders Orders - CARMINE GUERRIER MD Thyroid Stimulating Hormone (02/03/17 12:41) Free T4 (Free Thyroxine) (02/03/17 12:41) Ns Iv 1000 Ml (Sodium Chloride 0.9%) (02/03/17 13:24) Ns Iv 1000 Ml (Sodium Chloride 0.9%) (02/03/17 15:11) Ns Iv 1000 Ml (Sodium Chloride 0.9%) (02/03/17 15:23) Medications Given in ED Vital Signs/I&O Blood Pressure Mean: 88 Progress Note : Progress Note Patient was given a liter of IV fluids. Blood pressures were found to drop moderately upon standing. She did become more symptomatic upon standing as well. Workup was relatively unremarkable except for mild elevation in creatinine. Symptoms may be related to hypovolemia and inability to compensate due to antihypertensive medications and diuretics. Patient had minimal improvement after a liter of IV fluids. A second liter of fluids was administered and she noted more improvement. She was feeling good enough to return home at that point. ECG Initial ECG Impression Date: Feb 03, 2017 Initial ECG Impression Time: 12:22 Initial ECG Rate: 89 Initial ECG Rhythm: Normal Sinus Initial ECG Intervals: Normal Initial ECG Impression: Normal Comment Normal sinus rhythm with no ST elevation or depression. No abnormal intervals. Borderline left axis deviation. Diagnostic Imaging Diagonstic Imaging: Xray Plain Films/CT/US/NM/MRI: chest Comments Chest x-ray viewed by me and report reviewed. See report below: NAME: AVELINO STODDARD [facility] REC#: [id number] PT STATUS: REG ER : 1945 PHYSICIAN: JAKE MCFADDEN APRN ADMIT DATE: 02/03/17/ER Signed Date of Exam:02/03/17 CHEST 1 VIEW, AP/PA ONLY INDICATION: Acute onset shortness of breath, almost blacked Out while driving today. TECHNIQUE: Single view chest 12:43 PM. CORRELATION STUDY: 08/13/2015 FINDINGS: The heart size, mediastinal configuration and pulmonary vascularity are within normal limits. The lungs are clear with no consolidating infiltrate. There is no significant effusion or pneumothorax. Slight rotation of the patient versus rightward curvature of the thoracic spine. IMPRESSION: 1. Negative portable chest. Dictated by: Dictated on workstation # [id number] Dict: 02/03/17 1256 Trans: 02/03/17 1257 DO [id number] Interpreted by: JEN DODSON DO Electronically signed by: JEN DODSON DO 02/03/17 1257 Departure Impression Impression: Primary Impression: Lightheadedness Additional Impression: Hypovolemia Disposition: 01 HOME, SELF-CARE Condition: Improved Departure-Patient Inst. Decision time for Depature: 16:44 Referrals: MARNI MONTAÑO MD (PCP/Family) Primary Care Physician Patient Instructions: NO INSTRUCTIONS GIVEN Add. Discharge Instructions: Drink plenty of clear liquids. Follow-up with Dr. Montaño and Dr. Mcfarland as soon as possible to review your medications. Consider removing the diuretic from your Diovan. Return to the emergency room if symptoms worsen. Walk with caution, preferably with a cane or walker, and avoid driving until dizziness resolves. All discharge instructions reviewed with patient and/or family. Voiced understanding. Copy Copies To 1: AUGUSTIN MCFARLAND MD [facility] CCDS Copies To 2: MARNI MONTAÑO MD, JOSHUA T MD Feb 03, 2017 13:22
[2017-02-03] MEDS ORDERED: NS IV 1000 ML 1,000 ML IV ONE ×3 (13:24→15:23)
[2017-02-03 13:29] LABS: MYOGLOBIN SERUM 62.7 NG/ML (10.0-92.0)
[2017-02-03 13:30] LABS: THYROID STIMULATING HORMONE 1.44 UIU/ML (0.35-4.94)
[2017-02-03 17:38] VITALS: BP 129/63
== END 2017-02-03 17:38 | disposition home or self-care (01) ==
LOC: EDUNIT# 12:15 → ER 12:18
DX: R42 Dizziness and giddiness (principal); E86.1 Hypovolemia; J45.909 Unspecified asthma, uncomplicated; E78.00 Pure hypercholesterolemia, unspecified; I10 Essential (primary) hypertension; M19.90 Unspecified osteoarthritis, unspecified site; E03.9 Hypothyroidism, unspecified; E11.9 Type 2 diabetes mellitus without complications; F41.9 Anxiety disorder, unspecified; Z79.01 Long term (current) use of anticoagulants; Z86.73 Personal history of transient ischemic attack (TIA), and cerebral infarction without residual deficits; Z90.710 Acquired absence of both cervix and uterus
CPT/HCPCS: 36415; 71010; 80053; 83735; 83874; 84439; 84443; 84484; 85025; 85610; 85730; 93005; 93041

== ENCOUNTER 2017-05-02 09:39 | Emergency (ER) | payer MEDICARE ==
[~2017-05-02] VITALS: Ht 167.6 cm; Wt 113.4 kg
--- OUTSIDE RECORDS SUMMARY | 2017-05-02 09:48 | XMS REPORT | Continuity of Care Document ---
Author Author [facility] Organization [facility] Address Unknown Phone Unavailable Allergies Active Description Code Type Severity Reaction Onset Reported/Identified Relationship to Patient Clinical Status Yes codeine [id number] Drug Allergy Unknown "MAKES ME CRAZY 08/13/2015 Medications There is no data. 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, WITHOUT CATAPLEXY 10/08/2011 Ot 401.9 HYPERTENSION NOS 10/08/2011 Ot 414.01 CORONARY ATHEROSCLEROSIS OF [place] CORON 10/08/2011 Ot 786.09 RESPIRATORY ABNORM NEC 10/08/2011 Ot 786.59 CHEST PAIN NEC 10/08/2011 Ot V58.69 OTH MED,LT, CURRENT USE 10/08/2011 Ot V85.38 BODY MASS INDEX [...] 401.9 HYPERTENSION NOS 11/19/2011 Ot 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, SPEECH LA 11/19/2011 Ot 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,HEMIPLEGIA AFFECTING 11/19/2011 Ot 438.82 OTH LATE EFF -CEREB DIS, DYSPHAGIA 11/19/2011 Ot 493.90 ASTHMA, UNSPECIFIED [...] Richey Ot V76.12 06/16/2014 LARISA STEPHENS, CÉSAR Kamara Ot 244.9 06/16/2014 LARISA STEPHENS, CÉSAR Kamara Ot 272.4 06/16/2014 LARISA STEPHENS, CÉSAR Kamara Ot 278.01 06/16/2014 LAIRSA STEPHENS, CÉSAR Kamara Ot 289.0 06/16/2014 LARISA STEPHENS, CÉSAR Kamara Ot 347.00 06/16/2014 LARISA STEPHENS, CÉSAR Kamara Ot 401.9 06/16/2014 LARISA STEPHENS, CÉSAR Kamara Ot 493.90 06/16/2014 LARISA STEPHENS, CÉSAR Kamara Ot V12.54 06/16/2014 LARISA STEPHENS, CÉSAR Kamara Ot V58.61 06/16/2014 LARISA STEPHENS, CÉSAR Kamara Ot V58.69 06/16/2014 LARISA STEPHENS, CÉSAR Kamara [...] 05/10/2015 Ot V58.69 05/10/2015 Ot 289.0 05/10/2015 LARISA STEPHENS, CÉSAR Kamara Ot 244.9 [...] Kamara Ot 493.90 05/17/2015 LARISA STEPHENS, CÉSAR Anh Ot V12.54 05/17/2015 LARISA STEPHENS, CÉSAR Kamara [...] Kamara Ot 401.9 05/17/2015 LARISA STEPHENS, CÉSAR Anh [...] SABRA STEPHENS, MARNI D Ot Z12.31 08/13/2015 CORINNE BUSTOS, ANDRE Kamara Ot M54.6 PAIN IN THORACIC SPINE 08/13/2015 CORINNE ANDRE BUSTOS Ot R07.89 OTHER CHEST PAIN 08/14/2015 ANDRE SUN DO Ot M54.6 08/14/2015 CORINNE ANDRE BUSTOS Ot R07.89 08/15/2015 ANDRE SUN DO Ot M54.6 08/15/2015 CORINNE BUSTOS, ANDRE Kamara Ot R07.89 05/21/2016 Ot 715.35 LOC OSTEOARTH NOS-PELVIS 05/21/2016 Ot 722.52 LUMB/ LUMBOSAC DISC DEGEN 05/21/2016 Ot 724.02 SPINAL STENOSIS, [...] OF GENITAL ORGANS 05/21/2016 Ot V58.69 OTH MED,LT, CURRENT USE 05/21/2016 Ot 244.9 HYPOTHYROIDISM NOS 05/21/2016 Ot 272.4 HYPERLIPIDEMIA NEC/NOS 05/21/2016 Ot 289.0 SECONDARY POLYCYTHEMIA 05/21/2016 Ot 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, WITHOUT CATAPLEXY 05/21/2016 Ot 401.9 HYPERTENSION NOS 05/21/2016 Ot 493.90 ASTHMA, UNSPECIFIED 05/21/2016 Ot V58.69 OTH MED,LT, CURRENT USE 05/21/2016 Ot 786.59 CHEST PAIN NEC 05/21/2016 Ot 786.09 RESPIRATORY ABNORM NEC 05/21/2016 Ot 786.09 RESPIRATORY ABNORM NEC 05/21/2016 Ot 244.9 HYPOTHYROIDISM NOS 05/21/2016 Ot 272.4 HYPERLIPIDEMIA NEC/NOS 05/21/2016 Ot 289.0 SECONDARY POLYCYTHEMIA 05/21/2016 Ot 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, WITHOUT CATAPLEXY 05/21/2016 Ot 401.9 HYPERTENSION NOS 05/21/2016 Ot 493.90 ASTHMA, UNSPECIFIED 05/21/2016 Ot V58.69 OTH MED,LT, CURRENT USE 05/21/2016 Ot V76.12 OTH SCREEN MAMMO-MALIGN NEOPLASM OF [place] 05/21/2016 Ot 244.9 HYPOTHYROIDISM NOS 05/21/2016 Ot 272.4 HYPERLIPIDEMIA NEC/NOS 05/21/2016 Ot 278.01 MORBID OBESITY 05/21/2016 Ot 289.0 SECONDARY POLYCYTHEMIA 05/21/2016 Ot 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, WITHOUT CATAPLEXY 05/21/2016 Ot 401.9 HYPERTENSION NOS 05/21/2016 Ot 493.90 ASTHMA, UNSPECIFIED 05/21/2016 Ot V12.54 PERSONAL HX OF TIA, CEREBRAL INFARCTION 05/21/2016 Ot V58.69 OTH MED,LT, CURRENT USE 05/21/2016 Ot 289.0 SECONDARY POLYCYTHEMIA 05/21/2016 CÉSAR PERES MD Ot 244.9 HYPOTHYROIDISM NOS 05/21/2016 LARISA STEPHENS, CÉSAR Kamara Ot 272.4 HYPERLIPIDEMIA NEC/NOS 05/21/2016 CÉSAR PERES MD Ot 278.01 MORBID OBESITY 05/21/2016 CÉSAR PERES MD Ot 289.0 SECONDARY POLYCYTHEMIA 05/21/2016 CÉSAR PERES MD Ot 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, WITHOUT CATAPLEXY 05/21/2016 CÉSAR PERES MD Ot 401.9 HYPERTENSION NOS 05/21/2016 LARISA STEPHENS, CÉSAR Anh Ot 493.90 ASTHMA, UNSPECIFIED 05/21/2016 LARISA STEPHENS CÉSAR Anh Ot V12.54 PERSONAL HX OF TIA, CEREBRAL INFARCTION 05/21/2016 LARISA STEPHENS CÉSAR Anh Ot V58.61 ANTICOAGULANTS,LT,CURRENT USE 05/21/2016 CÉSAR PERES MD Ot V58.69 OTH MED,LT,CURRENT USE 05/21/2016 MARNI MONTAÑO MD Ot V76.12 OTH SCREEN MAMMO-MALIGN NEOPLASM OF [place] 05/21/2016 CÉSAR PERES MD Ot 244.9 HYPOTHYROIDISM NOS 05/21/2016 CÉSAR PERES MD Ot 272.4 HYPERLIPIDEMIA NEC/NOS 05/21/2016 CÉSAR PERES MD Ot 278.01 MORBID OBESITY 05/21/2016 CÉSAR PERES MD Ot 289.0 SECONDARY POLYCYTHEMIA 05/21/2016 CÉSAR PERES MD Ot 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, WITHOUT CATAPLEXY 05/21/2016 CÉSAR PERES MD Ot 401.9 HYPERTENSION NOS 05/21/2016 LARISA STEPHENS CÉSAR Anh Ot 493.90 ASTHMA, UNSPECIFIED 05/21/2016 LARISA STEPHENS CÉSAR Anh Ot V12.54 PERSONAL HX OF TIA, CEREBRAL INFARCTION 05/21/2016 CÉSAR PERES MD Ot V58.61 ANTICOAGULANTS,LT,CURRENT USE 05/21/2016 LARISA STEPHENS [...] ENCNTR SCREEN MAMMOGRAM FOR MALIGNANT NE 05/22/2016 SABRA STEPHENS, MARNI Richey Ot Z12.31 ENCNTR SCREEN MAMMOGRAM FOR MALIGNANT NE 05/22/2016 SABRA STEPHENS, MARNI Richey Ot Z12.31 ENCNTR SCREEN MAMMOGRAM FOR MALIGNANT NE 05/22/2016 MARNI MONTAÑO MD Ot Z12.31 ENCNTR SCREEN MAMMOGRAM FOR MALIGNANT NE 05/23/2016 MARNI MONTAÑO MD Ot Z12.31 ENCNTR SCREEN MAMMOGRAM FOR MALIGNANT NE 05/23/2016 MARNI MONTAÑO MD Ot Z12.31 ENCNTR SCREEN MAMMOGRAM FOR MALIGNANT NE 05/23/2016 SABRA STEPHENS, MARNI Richey Ot Z12.31 ENCNTR SCREEN MAMMOGRAM FOR MALIGNANT NE 05/24/2016 MARNI MONTAÑO MD Ot Z12.31 ENCNTR SCREEN MAMMOGRAM FOR MALIGNANT NE 06/12/2016 MARNI MONTAÑO MD Ot Z12.31 ENCNTR SCREEN MAMMOGRAM FOR MALIGNANT NE 07/11/2016 MARNI MONTAÑO MD Ot 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 07/11/2016 MARNI MONTAÑO MD Ot 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 07/31/2016 MARNI MONTAÑO MD Ot 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 08/19/2016 MARNI MONTAÑO MD Ot 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 12/25/2016 SUZANNE HENNING MD Ot E11.9 TYPE 2 DIABETES MELLITUS WITHOUT COMPLIC 12/25/2016 SUZANNE HENNING MD Ot E78.00 PURE HYPERCHOLESTEROLEMIA, UNSPECIFIED 12/25/2016 SUZANNE HENNING MD Ot F41.9 ANXIETY DISORDER, UNSPECIFIED 12/25/2016 SUZANNE HENNING MD Ot I10 ESSENTIAL (PRIMARY) HYPERTENSION 12/25/2016 SUZANNE HENNING MD Ot K91.840 POSTPROC HEMOR OF A DGSTV SYS ORG FOL A 12/25/2016 SUZANNE HENNING MD Ot M19.90 UNSPECIFIED OSTEOARTHRITIS, UNSPECIFIED 12/25/2016 SUZANNE HENNING MD Ot Z79.01 PENITENTIARY (CURRENT) USE OF ANTICOAGULANT 12/25/2016 SUZANNE HENNING MD Ot Z90.710 ACQUIRED ABSENCE OF BOTH CERVIX AND UTER 12/26/2016 SUZANNE HENNING MD Ot E11.9 TYPE 2 DIABETES MELLITUS WITHOUT COMPLIC 12/26/2016 SUZANNE HENNING MD Ot E78.00 PURE HYPERCHOLESTEROLEMIA, UNSPECIFIED 12/26/2016 SUZANNE HENNING MD Ot F41.9 ANXIETY DISORDER, UNSPECIFIED 12/26/2016 SUZANNE HENNING MD Ot I10 ESSENTIAL (PRIMARY) HYPERTENSION 12/26/2016 SUZANNE HENNING MD Ot K91.840 POSTPROC HEMOR OF A DGSTV SYS ORG FOL A 12/26/2016 SUZANNE HENNING MD Ot M19.90 UNSPECIFIED OSTEOARTHRITIS, UNSPECIFIED 12/26/2016 SUZANNE HENNING MD Ot Z79.01 PENITENTIARY (CURRENT) USE OF ANTICOAGULANT 12/26/2016 SUZANNE HENNING MD Ot Z90.710 ACQUIRED ABSENCE OF BOTH CERVIX AND UTER 12/26/2016 SUZANNE HENNING MD Ot E11.9 TYPE 2 DIABETES MELLITUS WITHOUT COMPLIC 12/26/2016 SUZANNE HENNING MD Ot E78.00 PURE HYPERCHOLESTEROLEMIA, UNSPECIFIED 12/26/2016 SUZANNE HENNING MD Ot F41.9 ANXIETY DISORDER, UNSPECIFIED 12/26/2016 SUZANNE HENNING MD Ot I10 ESSENTIAL (PRIMARY) HYPERTENSION 12/26/2016 SUZANNE HENNING MD Ot K91.840 POSTPROC HEMOR OF A DGSTV SYS ORG FOL A 12/26/2016 SUZANNE HENNING MD Ot M19.90 UNSPECIFIED OSTEOARTHRITIS, UNSPECIFIED 12/26/2016 SUZANNE HENNING MD Ot Z79.01 PENITENTIARY (CURRENT) USE OF ANTICOAGULANT 12/26/2016 SUZANNE HENNING MD Ot Z90.710 ACQUIRED ABSENCE OF BOTH CERVIX AND UTER 01/13/2017 SABRA STEPHENS, MARNI Richey Ot M47.896 OTHER SPONDYLOSIS, LUMBAR REGION 02/03/2017 CARMINE GUERRIER MD Ot E03.9 HYPOTHYROIDISM, UNSPECIFIED 02/03/2017 CARMINE GUERRIER MD Ot E11.9 TYPE 2 DIABETES MELLITUS WITHOUT COMPLIC 02/03/2017 CARMINE GUERRIER MD Ot E78.00 PURE HYPERCHOLESTEROLEMIA, UNSPECIFIED 02/03/2017 CARMINE GUERRIER MD Ot E86.1 HYPOVOLEMIA 02/03/2017 CARMINE GUERRIER MD Ot F41.9 ANXIETY DISORDER, UNSPECIFIED 02/03/2017 CARMINE GUERRIER MD Ot I10 ESSENTIAL (PRIMARY) HYPERTENSION 02/03/2017 CARMINE GUERRIER MD Ot J45.909 UNSPECIFIED ASTHMA, UNCOMPLICATED 02/03/2017 CARMINE GUERRIER MD Ot M19.90 UNSPECIFIED OSTEOARTHRITIS, UNSPECIFIED 02/03/2017 CARMINE GUERRIER MD Ot R42 DIZZINESS AND GIDDINESS 02/03/2017 CARMINE GUERRIER MD Ot Z79.01 PENITENTIARY (CURRENT) USE OF ANTICOAGULANT 02/03/2017 CARMINE GUERRIER MD Ot Z86.73 PRSNL HX OF TIA (TIA), AND CEREB INFRC W 02/03/2017 CARMINE GUERRIER MD Ot Z90.710 ACQUIRED ABSENCE OF BOTH CERVIX AND UTER 02/05/2017 CARMINE GUERRIER MD Ot E03.9 HYPOTHYROIDISM, UNSPECIFIED 02/05/2017 CARMINE GUERRIER MD Ot E11.9 TYPE 2 DIABETES MELLITUS WITHOUT COMPLIC 02/05/2017 CARMINE GUERRIER MD Ot E78.00 PURE HYPERCHOLESTEROLEMIA, UNSPECIFIED 02/05/2017 CARMINE GUERRIER MD Ot E86.1 HYPOVOLEMIA 02/05/2017 CARMINE GUERRIER MD Ot F41.9 ANXIETY DISORDER, UNSPECIFIED 02/05/2017 CARMINE GUERRIER MD Ot I10 ESSENTIAL (PRIMARY) HYPERTENSION 02/05/2017 CARMINE GUERRIER MD Ot J45.909 UNSPECIFIED ASTHMA, UNCOMPLICATED 02/05/2017 CARMINE GUERRIER MD Ot M19.90 UNSPECIFIED OSTEOARTHRITIS, UNSPECIFIED 02/05/2017 CARMINE GUERRIER MD Ot R42 DIZZINESS AND GIDDINESS 02/05/2017 CARMINE GUERRIER MD Ot Z79.01 PENITENTIARY (CURRENT) USE OF ANTICOAGULANT 02/05/2017 CARMINE GUERRIER MD Ot Z86.73 PRSNL HX OF TIA (TIA), AND CEREB INFRC W 02/05/2017 CARMINE GUERRIER MD, Ot Z90.710 ACQUIRED ABSENCE OF BOTH CERVIX AND UTER 02/07/2017 CARMINE GUERRIER MD, Ot E03.9 HYPOTHYROIDISM, UNSPECIFIED 02/07/2017 CARMINE GUERRIER MD, Ot E11.9 TYPE 2 DIABETES MELLITUS WITHOUT COMPLIC 02/07/2017 CARMINE GUERRIER MD, Ot E78.00 PURE HYPERCHOLESTEROLEMIA, UNSPECIFIED 02/07/2017 CARMINE GUERRIER MD, Ot E86.1 HYPOVOLEMIA 02/07/2017 CARMINE GEURRIER MD, Ot F41.9 ANXIETY DISORDER, UNSPECIFIED 02/07/2017 CARMINE GUERRIER MD, Ot I10 ESSENTIAL (PRIMARY) HYPERTENSION 02/07/2017 CARMINE GUERRIER MD, Ot J45.909 UNSPECIFIED ASTHMA, UNCOMPLICATED 02/07/2017 CARMINE GUERRIER MD, Ot M19.90 UNSPECIFIED OSTEOARTHRITIS, UNSPECIFIED 02/07/2017 CARMINE GUERRIER MD, Ot R42 DIZZINESS AND GIDDINESS 02/07/2017 CARMINE GUERRIER MD, Ot Z79.01 PENITENTIARY (CURRENT) USE OF ANTICOAGULANT 02/07/2017 CARMINE GUERRIER MD, Ot Z86.73 PRSNL HX OF TIA (TIA), AND CEREB INFRC W 02/07/2017 CARMINE GUERRIER MD, Ot Z90.710 ACQUIRED ABSENCE OF BOTH CERVIX AND UTER Procedures There is no data. Results Test Result Range Automated blood complete blood count (hemogram) panel - 12/24/16 23:00 Blood leukocytes automated count (number/volume) 13.0 10*3/uL 4.3-11.0 Blood erythrocytes automated count (number/volume) 4.70 10*6/uL 4.35-5.85 Venous blood hemoglobin measurement (mass/volume) 14.2 g/dL 11.5-16.0 Blood hematocrit (volume fraction) 44 % 35-52 Automated erythrocyte mean corpuscular volume 93 [foz_us] 80-99 Automated erythrocyte mean corpuscular hemoglobin (mass per erythrocyte) 30 pg 25-34 Automated erythrocyte mean corpuscular hemoglobin concentration measurement ( mass/volume) 32 g/dL 32-36 Automated erythrocyte distribution width ratio 13.9 % 10.0-14.5 Automated blood platelet count (count/volume) 309 10*3/uL 130-400 Automated blood platelet mean volume measurement 9.5 [foz_us] 7.4-10.4 PT panel in platelet poor plasma by coagulation assay - 12/24/16 23:00 Prothrombin time (PT) in platelet poor plasma by coagulation assay 41.0 s 12.2-14.7 INR in platelet poor plasma or blood by coagulation assay 4.2 0.8-1.4 Activated partial thromboplastin time (aPTT) in platelet poor plasma bycoagulation assay - 12/24/16 23:00 Activated partial thromboplastin time (aPTT) in platelet poor plasma bycoagulation assay 56 s 24-35 Complete blood count (CBC) with automated white blood cell (WBC) differential - 02/03/17 12:30 Blood leukocytes automated count (number/volume) 10.9 10*3/uL 4.3-11.0 Blood erythrocytes automated count (number/volume) 4.64 10*6/uL 4.35-5.85 Venous blood hemoglobin measurement (mass/volume) 14.0 g/dL 11.5-16.0 Blood hematocrit (volume fraction) 44 % 35-52 Automated erythrocyte mean corpuscular volume 94 [foz_us] 80-99 Automated erythrocyte mean corpuscular hemoglobin (mass per erythrocyte) 30 pg 25-34 Automated erythrocyte mean corpuscular hemoglobin concentration measurement ( mass/volume) 32 g/dL 32-36 Automated erythrocyte distribution width ratio 14.7 % 10.0-14.5 Automated blood platelet count (count/volume) 311 10*3/uL 130-400 Automated blood platelet mean volume measurement 9.3 [foz_us] 7.4-10.4 Automated blood neutrophils/100 leukocytes 68 % 42-75 Automated blood lymphocytes/100 leukocytes 23 % 12-44 Blood monocytes/100 leukocytes 8 % 0-12 Automated blood eosinophils/100 leukocytes 1 % 0-10 Automated blood basophils/100 leukocytes 0 % 0-10 Blood neutrophils automated count (number/volume) 7.5 10*3 1.8-7.8 Blood lymphocytes automated count (number/volume) 2.5 10*3 1.0-4.0 Blood monocytes automated count (number/volume) 0.8 10*3 0.0-1.0 Automated eosinophil count 0.1 10*3/uL 0.0-0.3 Automated blood basophil count (count/volume) 0.0 10*3/uL 0.0-0.1 PT panel in platelet poor plasma by coagulation assay - 02/03/17 12:30 Prothrombin time (PT) in platelet poor plasma by coagulation assay 20.6 s 12.2-14.7 INR in platelet poor plasma or blood by coagulation assay 1.8 0.8-1.4 Activated partial thromboplastin time (aPTT) in platelet poor plasma bycoagulation assay - 02/03/17 12:30 Activated partial thromboplastin time (aPTT) in platelet poor plasma bycoagulation assay 32 s 24-35 Comprehensive metabolic panel - 02/03/17 12:30 Serum or plasma sodium measurement (moles/volume) 139 mmol/L 135-145 Serum or plasma potassium measurement (moles/volume) 3.5 mmol/L 3.6-5.0 Serum or plasma chloride measurement (moles/volume) 101 mmol/L 98-107 Carbon dioxide 26 mmol/L 21-32 Serum or plasma anion gap determination (moles/volume) 12 mmol/L 5-14 Serum or plasma urea nitrogen measurement (mass/volume) 29 mg/dL 7-18 Serum or plasma creatinine measurement (mass/volume) 1.54 mg/dL 0.60-1.30 Serum or plasma urea nitrogen/creatinine mass ratio 19 NRG Serum or plasma creatinine measurement with calculation of estimated glomerular filtration rate 33 NRG Serum or plasma glucose measurement (mass/volume) 166 mg/dL 70-105 Serum or plasma calcium measurement (mass/volume) 9.6 mg/dL 8.5-10.1 Serum or plasma total bilirubin measurement (mass/volume) 0.6 mg/dL 0.1-1.0 Serum or plasma alkaline phosphatase measurement (enzymatic activity/volume) 74 U/L 40-136 Serum or plasma aspartate aminotransferase measurement (enzymatic activity/ volume) 16 U/L 5-34 Serum or plasma alanine aminotransferase measurement (enzymatic activity/volume ) 16 U/L 0-55 Serum or plasma protein measurement (mass/volume) 6.8 g/dL 6.4-8.2 Serum or plasma albumin measurement (mass/volume) 3.8 g/dL 3.2-4.5 Magnesium - 02/03/17 12:30 Magnesium 1.8 mg/dL 1.8-2.4 Serum or plasma troponin i.cardiac measurement (mass/volume) - 02/03/17 12:30 Serum or plasma troponin i.cardiac measurement (mass/volume) < ng/ mL <0.30 Myoglobin, serum - 02/03/17 12:30 Myoglobin, serum 62.7 ng/mL 10.0-92.0 THYROID STIMULATING HORMONE - 02/03/17 12:30 THYROID STIMULATING HORMONE 1.44 u[iU]/mL 0.35-4.94 Serum or plasma thyroxine (T4) free measurement (mass/volume) - 02/03/17 12:30 Serum or plasma thyroxine (T4) free measurement (mass/volume) 1.16 ng/dL 0.70-1.48 Encounters ACCT No. Visit Date/Time Discharge Status Pt. Type Provider Facility Loc./Unit Complaint [id number] 02/03/2017 12:18:00 02/03/2017 17:38:00 DIS Emergency FAREED STEPHENS, CARMINE Jauregui [facility] ER LABORED BREATHING/ HEAD PAIN/CP [id number] 12/24/2016 22:23:00 12/25/2016 00:19:00 DIS Emergency SUZANNE HENNING MD [facility] ER BLEEDING AFTER DENTAL SURG , TAKES BLOOD THINNER [id number] 07/10/2016 09:03:00 07/10/2016 23:59:59 CLS Outpatient MARNI MONTAÑO MD [facility] RAD CAROTID ARTERY STENOSIS [id number] 05/21/2016 10:02:00 05/21/2016 23:59:59 CLS Outpatient MARNI MONTAÑO MD [facility] RAD SCREENING [id number] 08/13/2015 19:33:00 08/13/2015 22:21:00 DIS Emergency ANDRE SUN DO [facility] ER CHEST TO BACK PAIN ON LEFT SIDE [id number] 05/17/2015 08:22:00 05/17/2015 23:59:59 CLS Outpatient MARNI MONTAÑO MD [facility] RAD LOW BACK PAIN,MAMMO SCREENING [id number] 05/10/2015 09:51:00 05/10/2015 23:59:59 CLS Outpatient MARNI MONTAÑO MD [facility] RAD LOW BACK PAIN [id number] 04/28/2014 14:29:00 04/28/2014 23:59:59 CLS Outpatient MARNI MONTAÑO MD [facility] RAD SCREENING [id number] 06/15/2013 09:50:00 06/15/2013 23:59:59 CLS Outpatient CÉSAR PERES MD [facility] ONC [id number] 05/07/2013 09:57:00 05/07/2013 23:59:59 CLS Outpatient MARNI MONTAÑO MD [facility] RAD SCREENING [id number] 12/01/2012 09:43:00 12/01/2012 23:59:59 CLS Outpatient CÉSAR PERES MD [facility] ONC [id number] 05/10/2015 09:47:00 Document Registration [id number] 06/25/2012 11:16:00 Document Registration [id number] 06/16/2012 20:16:00 Document Registration [id number] 06/09/2012 09:34:00 Document Registration [id number] 05/04/2012 09:44:00 Document Registration [id number] 01/02/2012 13:37:00 Document Registration [id number] 12/10/2011 09:47:00 Document Registration [id number] 11/13/2011 12:50:00 Document Registration [id number] 11/11/2011 10:51:00 Document Registration [id number] 11/06/2011 14:11:00 Document Registration [id number] 10/08/2011 12:30:00 Document Registration [id number] 10/04/2011 13:36:00 Document Registration [id number] 09/26/2011 07:38:00 Document Registration [id number] 07/01/2011 07:10:00 Document Registration [id number] 05/28/2011 12:50:00 Document Registration [id number] 05/02/2011 09:02:00 Document Registration [id number] 04/30/2011 13:23:00 Document Registration [id number] 04/19/2011 08:08:00 Document Registration [id number] 03/29/2011 14:57:00 Document Registration [id number] 03/22/2011 08:05:00 Document Registration [id number] 12/28/2010 09:48:00 Document Registration [id number] 12/21/2010 08:12:00 Document Registration [id number] 05/01/2010 08:57:00 Document Registration
--- NOTE | 2017-05-02 10:05 | ED Lower Extremity ---
General Chief Complaint: Trauma-Non Activation Stated Complaint: FALL Source: patient, family Exam Limitations: no limitations History of Present Illness Time seen by provider: 10:03 Initial Comments This 71-year-old white female presents after she inadvertently fell forward striking her forehead and right knee on the ground from shortly prior to presentation to the emergency department. The patient sustained a superficial laceration of forehead and a contusion to her right knee. The patient denies other injury and her accident. She denies loss of consciousness. She denies neck pain, paresthesias or weakness in extremities. Patient is complaining of pain over the right knee. The pain is made worse with flexion and extension. She has no significant discomfort over the superficial forehead laceration. Allergies and Home Medications Allergies Coded Allergies: codeine (Unverified Allergy, Unknown, "MAKES ME CRAZY", 08/13/15) Home Medications Allopurinol 100 Mg Tablet, 1 TAB PO DAILY, #90 (Reported) Alprazolam 0.5 Mg Tablet, 1 TAB PO TID PRN, (Reported) Hctz/Valsartan 1 Each Tablet, 1 TAB PO DAILY, (Reported) Levothyroxine Sodium 88 Mcg Tablet, #30 (Reported) Methylphenidate Hcl 10 Mg Tablet.sa, 20 MG PO TID, (Reported) Metoprolol Succinate 50 Mg Tab.sr.24h, 1 EACH PO DAILY, (Reported) Pantoprazole Sodium 40 Mg Tablet.dr, 1 TAB PO DAILY, #90 (Reported) Penicillin V Potassium 500 Mg Tablet, #32 (Reported) Simvastatin 20 Mg Tablet, 1 TAB PO DAILY, #90 (Reported) Tramadol HCl 50 Mg Tablet, 50 MG PO Q4H, #20 Prescribed by: ANDRE SUN on 08/13/15 2203 Valacyclovir HCl 1,000 Mg Tablet, 1,000 MG PO TID, #30 Prescribed by: ANDRE SUN on 08/13/15 2203 Valsartan/Hydrochlorothiazide 1 Each Tablet, 1 TAB PO DAILY, #90 (Reported) Warfarin Sod 2.5 Mg Tab, 4 MG PO DAILY@18, (Reported) Constitutional: No chills, No fever EENTM: other (superficial 1 inch laceration to the central forehead.), No ear pain, No nose pain Respiratory: No cough Cardiovascular: No chest pain Gastrointestinal: No abdominal pain, No vomiting Genitourinary: No decreased output Musculoskeletal: No back pain, joint pain (right knee pain.) Skin: see HPI Psychiatric/Neurological: No Symptoms Reported Past Ckxkbuu-Iujqlu-Xwvavz Hx Patient Social History Recent Foreign Travel: No Contact w/Someone Who Travel: No Recent Hopitalizations: No Immunizations Up To Date Date of Pneumonia Vaccine: Nov 11, 2011 Date of Influenza Vaccine: Jan 17, 2011 Seasonal Allergies Seasonal Allergies: No Surgeries History of Surgeries: Yes (HYSTERECTOMY/RECTAL FISTULA/GALLBLADDER REMOVED) Surgeries: Cardiac, Eye Surgery, Gallbladder, Hysterectomy, Rectal Respiratory History of Respiratory Disorde: Yes Respiratory Disorders: Asthma Currently Using CPAP: No Currently Using BIPAP: No Cardiovascular History of Cardiac Disorders: Yes Cardiac Disorders: High Cholesterol, Hypertension Neurological History of Neurological Disord: Yes (narcolepsy) Neurological Disorders: Stroke Reproductive System Hx Reproductive Disorders: 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, 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 Genitourinary History of Genitourinary Disor: No Gastrointestinal History of Gastrointestinal Di: No Musculoskeletal History of Musculoskeletal Dis: Yes Musculoskeletal Disorders: Arthritis Endocrine History of Endocrine Disorders: Yes Endocrine Disorders: Hypothyroidsim, Diabetes, Non-Insulin dep HEENT History of HEENT Disorders: No Cancer History of Cancer: No Psychosocial History of Psychiatric Problem: Yes Behavioral Health Disorders: Anxiety Integumentary History of Skin or Integumenta: Yes (SHINGLES) Blood Transfusions History of Blood Disorders: No Adverse Reaction to a Blood Tr: No Reviewed Nursing Assessment Reviewed/Agree w Nursing PMH: Yes Physical Exam Vital Signs Vital Sign - Last 12Hours 05/02/17 09:45 Temp 98.0 Pulse 78 Resp 18 B/P (MAP) 162/82 (108) Pulse Ox 98 Capillary Refill : General Appearance: WD/WN, no apparent distress HEENT: other (superficial ones laceration central forehead. This was cleaned and Steri-Stripped.) Neck: non-tender, supple Cardiovascular: regular rate, rhythm Respiratory: chest non-tender, lungs clear Gastrointestinal: normal bowel sounds, non tender, soft Back: normal inspection Hips: bilateral hip non-tender Legs: bilateral leg non-tender Knees: right knee pain, right knee soft tissue tenderness, right knee swelling (there was a contusion abrasion over the anterior aspect of the right knee.) Ankles: bilateral ankle non-tender Feet: bilateral foot non-tender Neurologic/Psychiatric: no motor/sensory deficits, alert, normal mood/affect, oriented x 3 Skin: normal color, warm/dry, other (superficial laceration central forehead. Abrasion contusion right knee.) Progress/Results/Core Measures Results/Orders My Orders Orders - CHRISTINE COX MD Knee, Right, 4 Views Or > (05/02/17 10:01) Hydrocodone/Apap 5/325 Tablet (Lortab 5 (05/02/17 10:15) Medications Given in ED Current Medications Medications Dose Ordered Sig/Kate Route Start Time Stop Time Status Last Admin Dose Admin Acetaminophen/ Hydrocodone Bitart 2 tab ONCE ONCE PO 05/02/17 10:15 05/02/17 10:16 DC 05/02/17 10:39 2 TAB Vital Signs/I&O Vital Sign - Last 12Hours 05/02/17 09:45 Temp 98.0 Pulse 78 Resp 18 B/P (MAP) 162/82 (108) Pulse Ox 98 Progress Note : Time: 11:07 Progress Note Patient's pain was improved with 25 mg Vicodin tablets. The x-ray of the right knee including sunrise view failed to demonstrate evidence of fracture dislocation. Steri-Strips were applied to the superficial laceration of the forehead. Departure Impression Impression: Primary Impression: Fall Qualified Codes: W19.XXXA - Unspecified fall, initial encounter Additional Impressions: Contusion, knee Qualified Codes: S80.01XA - Contusion of right knee, initial encounter Laceration of forehead Qualified Codes: S01.81XA - Laceration without foreign body of other part of head, initial encounter Disposition: 01 HOME, SELF-CARE Condition: Improved Departure-Patient Inst. Decision time for Depature: 11:09 Referrals: MARNI MONTAÑO MD (PCP/Family) Primary Care Physician Patient Instructions: Contusion (DC), Minor Head Injury (DC) Add. Discharge Instructions: Vicodin for pain. Leave Steri-Strips in place for 5 days to the forehead. Ice and elevation to the right knee. Return if any problems or questions. Close follow-up with Dr. Montaño on Friday. All discharge instructions reviewed with patient and/or family. Voiced understanding. CHRISTINE COX MD May 02, 2017 10:05
[2017-05-02] MEDS ORDERED: HYDROcodone/APAP 5 MG/325 MG (LORTAB) TAB PO ONE (10:15)
--- NOTE | 2017-05-02 10:47 | Diagnostic Imaging Report ---
Four views of the right knee. INDICATION: Injury. FINDINGS: No fracture, dislocation or radiopaque from body seen. No suprapatellar effusion is noted. Chondrocalcinosis is seen in the lateral compartment. Small osteophytes in the patellofemoral compartments are seen without significant joint space narrowing. IMPRESSION: Mild degenerative changes. Chondrocalcinosis. Dictated by: Dictated on workstation # [id number]
[2017-05-02 11:14] VITALS: BP 146/64
== END 2017-05-02 11:14 | disposition home or self-care (01) ==
LOC: EDUNIT# 09:39 → ER 09:42
DX: S01.81XA Laceration without foreign body of other part of head, initial encounter (principal); S80.01XA Contusion of right knee, initial encounter; J45.909 Unspecified asthma, uncomplicated; I10 Essential (primary) hypertension; E78.00 Pure hypercholesterolemia, unspecified; E03.9 Hypothyroidism, unspecified; E11.9 Type 2 diabetes mellitus without complications; F41.9 Anxiety disorder, unspecified; Z86.73 Personal history of transient ischemic attack (TIA), and cerebral infarction without residual deficits; Z79.01 Long term (current) use of anticoagulants; Z90.710 Acquired absence of both cervix and uterus; Z90.49 Acquired absence of other specified parts of digestive tract; W01.198A Fall on same level from slipping, tripping and stumbling with subsequent striking against other object, initial encounter
CPT/HCPCS: 73564; 99283

== ENCOUNTER → 2017-07-25 | Outpatient (CLI) | payer MEDICARE ==
--- NOTE | 2017-07-25 16:24 | Diagnostic Imaging Report ---
INDICATION: Routine screening. COMPARISON: Prior study from 05/21/2016 and 05/17/2015. EXAMINATION: Bilateral digital screening mammogram with CAD. The current study was also evaluated with a Computer Aided Detection (CAD) system. FINDINGS: Both breasts are primarily involutional. There is a large benign calcification in the upper slightly inner aspect of the right breast, stable. No new mass or malignant appearing microcalcifications are seen. The axillae are unremarkable. IMPRESSION: No mammographic features suspicious for malignancy are identified. ACR BI-RADS Category 2: Benign findings. Result letter will be mailed to the patient. Note: At least 10% of breast cancer is not imaged by mammography. Dictated on workstation # [id number]
== END ==
LOC: RAD 09:14
DX: Z12.31 Encounter for screening mammogram for malignant neoplasm of breast (principal)
CPT/HCPCS: 77067

== ENCOUNTER → 2018-07-31 | Outpatient (CLI) | payer MEDICARE ==
--- NOTE | 2018-08-03 08:52 | Diagnostic Imaging Report ---
Indication: Routine screening. Comparison is made with prior mammogram from 07/25/2017 and 05/21/2016. 2-D and 3-D bilateral screening mammography was performed with CAD. Scattered fibroglandular densities are identified bilaterally. There is a density in the left breast CC view just medial to the nipple line, appearing slightly more prominent than prior exams. Additional views are recommended. No correlate on the MLO view is seen. No suspicious microcalcifications are identified. Axillae unremarkable. Impression: BI-RADS 0 Left breast density. Additional views including spot compression and rolled CC views are recommended for further evaluation. ACR BI-RADS Category 0: Incomplete. (Needs additional imaging evaluation). Result letter will be mailed to the patient. Note: At least 10% of breast cancer is not imaged by mammography. Dictated by: Dictated on workstation # [id number]
== END ==
LOC: RAD 14:43
PROVIDERS: ATTEND Nurse Practitioner Family
DX: Z12.31 Encounter for screening mammogram for malignant neoplasm of breast (principal)
CPT/HCPCS: 77067

== ENCOUNTER → 2018-08-07 | Outpatient (CLI) | payer MEDICARE ==
--- NOTE | 2018-08-07 15:41 | Diagnostic Imaging Report ---
INDICATION: Left breast density. Patient presents for additional views. CORRELATION is made with recent screening study from 07/31/2018. TECHNIQUE: Unilateral left 2-D and 3-D diagnostic mammography was performed including spot compression CC, rolled CC and 90 degree lateral views. Additional views show persistent nodular density in the upper and slightly inner left breast approximately 4-6 cm from the nipple. No suspicious calcifications are seen. IMPRESSION: BI-RADS 0 Persistent nodular density in the upper inner left breast. Further evaluation with ultrasound is recommended and will be performed today. ACR BI-RADS Category 0: Incomplete. (Needs additional imaging evaluation). Result letter will be mailed to the patient. Note: At least 10% of breast cancer is not imaged by mammography. Dictated by: Dictated on workstation # [id number]
--- NOTE | 2018-08-07 20:10 | Diagnostic Imaging Report ---
INDICATION: Left breast density. Correlation is made with diagnostic mammogram earlier same day and screening mammogram from 07/31/2018. FINDINGS: Sonographic interrogation of the left breast from approximately the 9 to 12 o'clock location was performed. No sonographic abnormality is seen. No solid or cystic mass is detected. IMPRESSION: No sonographic abnormality is identified. Even so, follow-up left mammogram in six months is recommended to confirm stability of the area of density in the upper-inner left breast. ACR BI-RADS Category 3: Probably benign findings. Dictated by: Dictated on workstation # [id number]
== END ==
LOC: RAD 12:18
PROVIDERS: ATTEND Nurse Practitioner Family
DX: N63.42 Unspecified lump in left breast, subareolar (principal)
CPT/HCPCS: 76642

== ENCOUNTER → 2018-11-12 | Outpatient (CLI) | payer MEDICARE ==
[~2018-11-12] VITALS: Ht 167.6 cm; Wt 113.5 kg
[~2018-11-12] MED LIST changes: +NS IV 1000 ML 1,000 ML IV NR; +NS IV 1000 ML 1,000 ML ONE
[2018-11-12 14:59] VITALS: BP 136/67
--- NOTE | 2018-11-12 17:19 | Diagnostic Imaging Report ---
PROCEDURE: CT abdomen and pelvis without contrast. TECHNIQUE: Multiple contiguous axial images were obtained through the abdomen and pelvis without the use of intravenous contrast. Auto Exposure Controls were utilized during the CT exam to meet ALARA standards for radiation dose reduction. INDICATION: Left lower quadrant pain for five days. COMPARISON: 02/12/2008 FINDINGS: The lung bases demonstrate mild bibasilar atelectasis. The heart is normal in size. The liver demonstrates no focal lesions. The spleen appears normal. The pancreas is normal. The adrenal glands are normal. The right kidney is rotated horizontally, but there is no hydronephrosis or renal calculi seen. The bowel loops are nondistended without obstruction. There are multiple diverticuli in the descending and sigmoid colon, with a focal acute diverticulitis at the proximal sigmoid colon. There is marked surrounding edema and mild fluid. A drainable fluid collection is not seen. No free air is seen. No acute osseous abnormality is seen. There are degenerative changes in the spine. IMPRESSION: 1. Acute diverticulitis of the sigmoid colon with adjacent edema and fluid, but no free air or fluid collection seen. Dictated by: Dictated on workstation # [id number]
[2018-11-12 19:19] VITALS: BP 136/67
== END ==
LOC: RAD 14:34
PROVIDERS: ATTEND Nurse Practitioner Family
DX: K57.32 Diverticulitis of large intestine without perforation or abscess without bleeding (principal); E86.0 Dehydration; N39.0 Urinary tract infection, site not specified
CPT/HCPCS: 74176

== ENCOUNTER → 2019-01-27 | Outpatient (CLI) | payer MEDICARE ==
[~2019-01-27] MED LIST changes: -NS IV 1000 ML 1,000 ML IV NR; -NS IV 1000 ML 1,000 ML ONE
--- NOTE | 2019-01-27 10:23 | Diagnostic Imaging Report ---
INDICATION: Left breast density. Patient presents for a 6 month followup. COMPARISON: Correlation is made with mammograms dating back to 2011. TECHNIQUE: Unilateral left 2D and 3D diagnostic mammography was performed with CAD. FINDINGS: There is an ovoid density in the central left breast just medial to the nipple line on the CC view. This appears to be fairly stable. No new mass is seen. No malignant appearing microcalcifications are identified. The left axilla is unremarkable. IMPRESSION: Stable left mammogram. An additional 6 month followup is recommended to confirm stability. ACR BI-RADS Category 3: Probably benign findings. Result letter will be mailed to the patient. Note: At least 10% of breast cancer is not imaged by mammography. Dictated by: Dictated on workstation # [id number]
== END ==
LOC: RAD 08:55
DX: N63.20 Unspecified lump in the left breast, unspecified quadrant (principal); R92.2 Inconclusive mammogram

== ENCOUNTER 2019-04-07 23:09 | Emergency (ER) | payer MEDICARE ==
[~2019-04-07] VITALS: Ht 165 cm; Wt 98.0 kg
[2019-04-07] MEDS ORDERED: ASPIRIN 81 MG CHEW (CHILDREN'S ASA) PO ONE (23:30)
[2019-04-07 23:35] LABS: BASOPHILS % (AUTO) 0 % (0-10); EOSINOPHILS # (AUTO) 0.1 10^3/uL (0.0-0.3); EOSINOPHILS % (AUTO) 1 % (0-10); HEMATOCRIT 45 % (35-52); HEMOGLOBIN 14.4 G/DL (11.5-16.0); LYMPHOCYTES # (AUTO) 3.5 X 10^3 (1.0-4.0); LYMPHOCYTES % (AUTO) 28 % (12-44); MEAN CORPUSCULAR HEMOGLOBIN 31 PG (25-34); MEAN CORPUSCULAR HGB CONC 32 G/DL (32-36); MEAN CORPUSCULAR VOLUME 97 FL (80-99); MEAN PLATELET VOLUME 9.5 FL (7.4-10.4); MONOCYTES # (AUTO) 0.8 X 10^3 (0.0-1.0); MONOCYTES % (AUTO) 7 % (0-12); NEUTROPHILS # (AUTO) 7.8 X 10^3 (1.8-7.8); NEUTROPHILS % (AUTO) 64 % (42-75); PLATELET COUNT 294 10^3/uL (130-400); RED CELL DISTRIBUTION WIDTH 14.9 % (10.0-14.5); WHITE BLOOD COUNT 12.3 10^3/uL (4.3-11.0)
[2019-04-07 23:45] LABS: PROTHROMBIN TIME PATIENT 17.2 SEC (12.2-14.7)
[2019-04-07 23:46] LABS: FIBRIN DEGRADATION PRODUCTS < 0.20 UG/ML (0.00-0.49); INR 1.4 (0.8-1.4); PARTIAL THROMBOPLASTIN TIME 32 SEC (24-35)
[2019-04-07 23:52] LABS: ALANINE AMINOTRANSFERASE 22 U/L (0-55); ALBUMIN 4.1 GM/DL (3.2-4.5); ALKALINE PHOSPHATASE 70 U/L (40-136); BILIRUBIN,TOTAL 0.4 MG/DL (0.1-1.0); BUN/CREATININE RATIO 15; CALCIUM 10.7 MG/DL (8.5-10.1); CARBON DIOXIDE 23 MMOL/L (21-32); CHLORIDE 100 MMOL/L (98-107); CREATININE SERUM 1.79 MG/DL (0.60-1.30); GFR ESTIMATED 28; GLUCOSE 151 MG/DL (70-105); MAGNESIUM 1.4 MG/DL (1.6-2.4); POTASSIUM 4.2 MMOL/L (3.6-5.0); SODIUM 141 MMOL/L (135-145); TOTAL PROTEIN 7.2 GM/DL (6.4-8.2)
--- NOTE | 2019-04-08 00:08 | ED Chest Pain ---
General Chief Complaint: Chest Pain Stated Complaint: PALPITATIONS Source: patient Exam Limitations: no limitations History of Present Illness Date Seen by Provider: Apr 07, 2019 Time Seen by Provider: 23:27 Initial Comments Here with report of feeling palpitations and hearing her heartbeat in her right ear. States it was very fast. This lasted from about 9:30 PM until just prior to arrival at about 11 PM. It is currently gone. Denies nausea, vomiting, sweating or weakness with that. She is on blood thinners but she is not exactly sure why. She has seen Dr. Mcfarland in the past but it's been a few years and doesn't follow with him because she did not like him. She follows with Dr. Montaño. Apparently he manages her INR and warfarin that she is on. She states that she takes that as directed. Timing/Duration: 1-3 hours, resolved prior to arrival Severity/Quality: mild, other (palpitations) Location: other (right ear) Radiation: no radiation Activities at Onset: none Prior CP/Workup: cardiac cath, echocardiography, stress test Modifying Factors: improves with rest ASA po FLOOR RUNNER: No NTG SL FLOOR RUNNER: No Associated Symptoms: No abdominal pain, No back pain, No diaphoresis, No dizziness, No edema, No fever/chills, No nausea/vomiting, No shortness of breath, No weakness Allergies and Home Medications Allergies Coded Allergies: codeine (Unverified Allergy, Unknown, "MAKES ME CRAZY", 08/13/15) Home Medications Allopurinol 100 Mg Tablet, 1 TAB PO DAILY, (Reported) Alprazolam 0.5 Mg Tablet, 1 TAB PO TID PRN, (Reported) Hctz/Valsartan 1 Each Tablet, 1 TAB PO DAILY, (Reported) Methylphenidate Hcl 10 Mg Tablet.sa, 20 MG PO TID, (Reported) Metoprolol Succinate 50 Mg Tab.sr.24h, 1 EACH PO DAILY, (Reported) Pantoprazole Sodium 40 Mg Tablet.dr, 1 TAB PO DAILY, (Reported) Simvastatin 20 Mg Tablet, 1 TAB PO DAILY, (Reported) Tramadol HCl 50 Mg Tablet, 50 MG PO Q4H Prescribed by: ANDRE SUN on 08/13/152202 Valacyclovir HCl 1,000 Mg Tablet, 1,000 MG PO TID Prescribed by: ANDRE SUN on 08/13/152202 Valsartan/Hydrochlorothiazide 1 Each Tablet, 1 TAB PO DAILY, (Reported) Warfarin Sod 2.5 Mg Tab, 4 MG PO DAILY@18, (Reported) Patient Home Medication List Home Medication List Reviewed: Yes Review of Systems Review of Systems Constitutional: see HPI; No chills, No fever EENTM: No Symptoms Reported Respiratory: No Symptoms Reported Cardiovascular: See HPI, Palpitations; Denies Syncope Gastrointestinal: No Symptoms Reported Genitourinary: No Symptoms Reported Musculoskeletal: no symptoms reported Skin: no symptoms reported Psychiatric/Neurological: No Symptoms Reported All Other Systems Reviewed Negative Unless Noted: Yes Past Bhvymzo-Pwaxeu-Xzhmcs Hx Past Med/Social Hx: Reviewed Nursing Past Med/Soc Hx Patient Social History Alcohol Use: Denies Use Recreational Drug Use: No Smoking Status: Never a Smoker Recent Foreign Travel: No Contact w/Someone Who Travel: No Recent Hopitalizations: No Immunizations Up To Date Tetanus Booster (TDap): Less than 5yrs Date of Pneumonia Vaccine: Nov 11, 2011 Date of Influenza Vaccine: Jan 17, 2011 Seasonal Allergies Seasonal Allergies: No Past Medical History Surgeries: Yes (HYSTERECTOMY/RECTAL FISTULA/GALLBLADDER REMOVED) Cardiac, Eye Surgery, Gallbladder, Hysterectomy, Rectal Respiratory: Yes Asthma Currently Using CPAP: No Currently Using BIPAP: No Cardiac: Yes High Cholesterol, Hypertension Neurological: Yes (narcolepsy) Stroke 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 3.0oz. 113.529045uc; 35.58 BMI Method:Stated General Appearance: No Apparent Distress, WD/WN HEENT: PERRL/EOMI, Pharynx Normal Neck: Non Tender, Supple Respiratory: Lungs Clear, Normal Breath Sounds Cardiovascular: Regular Rate, Rhythm, No Murmur Gastrointestinal: Non Tender, Soft Extremity: Normal Range of Motion, Non Tender Neurologic/Psychiatric: Alert, Oriented x3 Skin: Normal Color, Warm/Dry Progress/Results/Core Measures Results/Orders Lab Results Laboratory Tests Test 04/07/19 23:19 04/08/19 01:07 Range/Units White Blood Count 12.3 H 4.3-11.0 10^3/uL Red Blood Count 4.63 4.35-5.85 10^6/uL Hemoglobin 14.4 11.5-16.0 G/DL Hematocrit 45 35-52 % Mean Corpuscular Volume 97 80-99 FL Mean Corpuscular Hemoglobin 31 25-34 PG Mean Corpuscular Hemoglobin Concent 32 32-36 G/DL Red Cell Distribution Width 14.9 H 10.0-14.5 % Platelet Count 294 130-400 10^3/uL Mean Platelet Volume 9.5 7.4-10.4 FL Neutrophils (%) (Auto) 64 42-75 % Lymphocytes (%) (Auto) 28 12-44 % Monocytes (%) (Auto) 7 0-12 % Eosinophils (%) (Auto) 1 0-10 % Basophils (%) (Auto) 0 0-10 % Neutrophils # (Auto) 7.8 1.8-7.8 X 10^3 Lymphocytes # (Auto) 3.5 1.0-4.0 X 10^3 Monocytes # (Auto) 0.8 0.0-1.0 X 10^3 Eosinophils # (Auto) 0.1 0.0-0.3 10^3/uL Basophils # (Auto) 0.0 0.0-0.1 10^3/uL Prothrombin Time 17.2 H 12.2-14.7 SEC INR Comment 1.4 0.8-1.4 Activated Partial Thromboplast Time 32 24-35 SEC D-Dimer < 0.20 0.00-0.49 UG/ML Sodium Level 141 135-145 MMOL/L Potassium Level 4.2 3.6-5.0 MMOL/L Chloride Level 100 98-107 MMOL/L Carbon Dioxide Level 23 21-32 MMOL/L Anion Gap 18 H 5-14 MMOL/L Blood Urea Nitrogen 26 H 7-18 MG/DL Creatinine 1.79 H 0.60-1.30 MG/DL Estimat Glomerular Filtration Rate 28 BUN/Creatinine Ratio 15 Glucose Level 151 H 70-105 MG/DL Calcium Level 10.7 H 8.5-10.1 MG/DL Corrected Calcium 10.6 H 8.5-10.1 MG/DL Magnesium Level 1.4 L 1.6-2.4 MG/DL Total Bilirubin 0.4 0.1-1.0 MG/DL Aspartate Amino Transf (AST/SGOT) 23 5-34 U/L Alanine Aminotransferase (ALT/SGPT) 22 0-55 U/L Alkaline Phosphatase 70 40-136 U/L Myoglobin 88.5 10.0-92.0 NG/ML Troponin I < 0.028 < 0.028 <0.028 NG/ML Total Protein 7.2 6.4-8.2 GM/DL Albumin 4.1 3.2-4.5 GM/DL My Orders Orders - ELIS JOHN MD Cbc With Automated Diff (04/07/19:) Magnesium (04/07/19:) Chest 1 View, Ap/Pa Only (04/07/19:) Ekg Tracing (04/07/19:) Comprehensive Metabolic Panel (04/07/19:) Myoglobin Serum (04/07/19:) Protime With Inr (04/07/19:) Partial Thromboplastin Time (04/07/19:) O2 (04/07/19:) Monitor-Rhythm Ecg Trace Only (04/07/19:) Ed Iv/Invasive Line Start (04/07/19:26) Aspirin Chewable Tablet (Baby Aspirin Ch (04/07/19 23:30) Fibrin Degradation Products (04/07/19:) Troponin I (04/07/19:) Warfarin Tablet (Coumadin Tablet) (04/08/19 00:45) Troponin I (04/08/19 00:58) Medications Given in ED Vital Signs/I&O 04/07/19 04/07/19 04/07/19 04/08/19 23:11 23:11 23:11 02:17 Temp 36.8 37.0 Pulse 70 71 Resp 18 20 B/P (MAP) 145/73 (97) 138/65 Pulse Ox 92 92 99 O2 Delivery Room Air Room Air Room Air Room Air Progress Progress Note : Progress Note Seen and evaluated. IV, labs, EKG and chest x-ray ordered. ASA 324 mg by mouth given. Monitor patient. 0045: We will give additional dose of warfarin 2 mg by mouth now due to subtherapeutic INR. This will need to be adjusted as outpatient. Patient would like to go home and continue adjustments with Dr. Montaño. We will repeat troponin. I did discuss with her the importance of following up with a history professor. She has followed up with Dr. Mcfarland in the past and apparently did not like him so I will give her information on the other 2 history professor. We will continue to monitor. She hasn't had any ectopy throughout the ER stay. Monitor patient. Improved. Discharged home with return precautions. Discussed the need to follow-up with her doctor. Patient verbalize understanding instructions and agreement with plan. Initial ECG Impression Date: Apr 07, 2019 Initial ECG Impression Time: 23:19 Initial ECG Rate: 71 Initial ECG Rhythm: Normal Sinus Initial ECG Comparisson: Unchanged Comment Sinus rhythm with borderline T-wave abnormalities. No evidence of ST elevation MO. Normal axis. Similar to previous of 02/03/17. Interpreted by me. Diagnostic Imaging Diagonstic Imaging: Xray Plain Films/CT/US/NM/MRI: chest Comments [facility]. POS [place], [place] POS NAME: AVELINO STODDARD [facility] REC#: [id number] PT STATUS: DEP ER : 1945 PHYSICIAN: ELIS JOHN MD ADMIT DATE: 04/07/19/ER Signed POSDate of Exam:04/07/19 CHEST 1 VIEW, AP/PA ONLY INDICATION: Chest pain. EXAMINATION: Upright portable AP view of the chest is obtained. FINDINGS: Heart size and pulmonary vascularity are within normal limits, and the lungs are clear, bilaterally. IMPRESSION: Unremarkable chest. Dictated by: Dictated on workstation # [id number] Dict: 04/08/19 0651 Trans: 04/08/19 1207 [id number] Interpreted by: KAVYA REARDON MD Electronically signed by: KAVYA REARDON MD 04/08/19 1207 Departure Impression Primary Impression: Palpitations Additional Impressions: Atypical chest pain Renal dysfunction Disposition: HOME, SELF-CARE Condition: Stable Departure-Patient Inst. Decision time for Depature: 01:47 Referrals: Keli LEIJA MD, BASHAR J MD SCHOELING, RICK D MD (PCP/Family) Primary Care Physician Patient Instructions: Palpitations (DC), Chest Pain (DC), Chronic Kidney Disease (DC) Add. Discharge Instructions: All discharge instructions reviewed with patient and/or family. Voiced understanding. Is very important that you follow up with Dr. Montaño for recheck and further evaluation and for adjustment of your Coumadin/warfarin. You should also follow- up with a history professor. You may call one of the ones listed or of your choosing. You may discuss this with Dr. Montaño as well. You do need to drink more fluids because your kidney function is showing that it is in the beginning stages of dysfunction. Return for worse pain, weakness, breathing problems, chest pain, vision or balance problems or other concerns as needed. Continue me dications as previously prescribed. Copy Copies To 1: MARNI MONTAÑO MD, TIMOTHY D MD Apr 08, 2019 00:08 POS
[2019-04-08] MEDS ORDERED: warFARin 2 MG (COUMADIN) TAB PO ONE (00:45)
[2019-04-08 02:17] VITALS: BP 138/65
--- NOTE | 2019-04-08 06:54 | Diagnostic Imaging Report ---
INDICATION: Chest pain. EXAMINATION: Upright portable AP view of the chest is obtained. FINDINGS: Heart size and pulmonary vascularity are within normal limits, and the lungs are clear, bilaterally. IMPRESSION: Unremarkable chest. Dictated by: Dictated on workstation # [id number]
== END 2019-04-08 02:19 | disposition home or self-care (01) ==
LOC: EDUNIT# 23:09 → ER 23:11
DX: R00.2 Palpitations (principal); R07.89 Other chest pain; N28.9 Disorder of kidney and ureter, unspecified; J45.909 Unspecified asthma, uncomplicated; I10 Essential (primary) hypertension; E78.00 Pure hypercholesterolemia, unspecified; E03.9 Hypothyroidism, unspecified; E11.9 Type 2 diabetes mellitus without complications; F41.9 Anxiety disorder, unspecified; Z86.73 Personal history of transient ischemic attack (TIA), and cerebral infarction without residual deficits; Z79.01 Long term (current) use of anticoagulants; Z88.5 Allergy status to narcotic agent; Z90.710 Acquired absence of both cervix and uterus
CPT/HCPCS: 36415; 71045; 80053; 83735; 83874; 84484; 85025; 85379; 85610; 85730; 93005; 93041

== ENCOUNTER → 2019-04-08 | Outpatient (CLI) | payer MEDICARE ==
--- NOTE | 2019-04-08 16:16 | Diagnostic Imaging Report ---
PROCEDURE: MR imaging of the brain without contrast. TECHNIQUE: Multiplanar, multisequence MR imaging of the brain was performed without contrast. INDICATION: Memory loss. COMPARISON: Comparison made with prior examination from 11/11/2011. FINDINGS: There is mild prominence of the ventricles and sulci. There is mild chronic microvascular ischemic disease. There are no areas of diffusion restriction appreciated to suggest an acute CVA. There is no hydrocephalus. There is no midline shift. There is no mass, hemorrhage, or extra-axial fluid collection. The frontal, ethmoid, sphenoid, and maxillary sinuses are clear. There is a small amount of fluid in the left mastoid air cells. The globes and intraorbital structures are unremarkable. The central arterial and dural venous sinus flow voids are preserved. IMPRESSION: No acute intracranial abnormality. There is some atrophy and mild chronic microvascular ischemic disease. There is a small amount of nonspecific fluid in the left mastoid air cells. Dictated by: Dictated on workstation # [id number]
== END ==
LOC: RAD 15:15
PROVIDERS: ATTEND Nurse Practitioner Family
DX: I67.82 Cerebral ischemia (principal); G93.9 Disorder of brain, unspecified; G31.9 Degenerative disease of nervous system, unspecified; R22.0 Localized swelling, mass and lump, head; R41.3 Other amnesia
CPT/HCPCS: 70551

== ENCOUNTER 2019-07-28 11:43 | Inpatient (IN) | payer MEDICARE ==
[~2019-07-28] VITALS: Ht 165.1 cm; Wt 96.5 kg
[~2019-07-28 11:43] MED LIST changes: +BUDE10.26 PO; +METO50TA7 PO; +SIMV20TA26 PO; +WARF4TAB70 PO
[2019-07-28] MEDS ORDERED: DOCUSATE SODIUM 100 MG (COLACE) CAP PO PRN (12:00)
[2019-07-28] MEDS ORDERED: ALPRAZolam 0.25 MG (XANAX) TAB PO PRN (12:00)
[2019-07-28] MEDS ORDERED: CALCIUM CARBONATE 500 MG (TUMS) TAB.CHEW PO PRN (12:00)
[2019-07-28] MEDS ORDERED: guaiFENesin/CODEINE (ROBITUSSIN AC) 10ML UDC PO PRN (12:00)
[2019-07-28] MEDS ORDERED: LACTULOSE SYRUP 10GM/15ML (ENULOSE) 30ML UDC PO PRN (12:00)
[2019-07-28] MEDS ORDERED: BISACODYL 10 MG SUPP (DULCOLAX) PR PRN (12:00)
[2019-07-28] MEDS ORDERED: ONDANSETRON 4 MG (ZOFRAN) ORAL DISSOLVE TAB PO PRN (12:00)
[2019-07-28] MEDS ORDERED: MELATONIN 3 MG TABLET PO PRN (12:00)
[2019-07-28] MEDS ORDERED: FLEET ENEMA ADULT 1 EA BTL PR PRN (12:00)
[2019-07-28] MEDS ORDERED: diphenhydrAMINE 25 MG TAB (BENADRYL) PO PRN (12:00)
[2019-07-28] MEDS ORDERED: ONDANSETRON 4 MG/2 ML (SDV) Z0FRAN IV PRN (12:00)
[2019-07-28] MEDS ORDERED: LOPERAMIDE 2 MG (IMODIUM) TABLET PO PRN (12:00)
--- NOTE | 2019-07-28 12:30 | NUR ---
Vania Barrydarell admitted to room 228-1, with an admitting diagnosis of CVA, on 07/28/19 from 4th Floor Medical via wheelchair, accompanied by staff.VANIA STODDARD introduced to surroundings, call light, bed controls, phone, TV, temperature control, lights, meal times, smoking policy, visitor policy, side rail policy, bathrooms and showers. Patient Rights given to patient in the handbook.VANIA STODDARD verbalizes understanding that [facility] is not responsible for the loss or damage to any personal effects or valuables that are kept in the patients possession during their hospitalization. The following Patient Care Plans were discussed with the Patient: Discharge Planning, CVA, Activity Intolerance, Falls, and Impaired Mobility. VANIA STODDARD verbalizes understanding of Interdisciplinary Patient Education. Patient and/or family were informed about the Rapid Response Team and its purpose. Patient received Patient Rights Booklet, which includes Privacy Act Statement and Data Collection Information Summary.
--- NOTE | 2019-07-28 13:20 | Physical Therapy Evaluation ---
PT Evaluation-General Medical Diagnosis Admission Date Jul 28, 2019 at 12:48 Medical Diagnosis: CVA Onset Date: Jul 28, 2019 Therapy Diagnosis Therapy Diagnosis: weakness; abn gait Height/Weight Height (Feet): 5 Height (Inches): 6.00 Weight (Pounds): 250 Weight (Ounces): 3.0 Precautions Precautions/Isolations: Standard Precautions Referral Physician: Alvaro Reason for Referral: Evaluation/Treatment Medical History Pertinent Medical History: Arthritis, CVA, DM, HTN Additional Medical History narcolepsy, asthma, anxiety Current History Pt admitted to acute care with AMS and found to have hypertensive emergency; deemed CVA. Pt transferred to ARU for continued medical management and skilled therapy services. Reviewed History: Yes Social History Home: Single Level Current Living Status: Spouse Entry Into Home: Stairs With Railing PT Steps Into Home: 5 Prior Prior Level of Function SCALE: Activities may be completed with or without assistive devices. 8-Jmzuhmspdz-lbsrzuj completes the activity by him/herself with no assistance from a helper. 5-Set-up or Clean-up Assistance-helper sets up or cleans up; patient completes activity. [place] assists only prior to or following the activity. 4-Supervision or Touching Assistance-helper provides verbal cues and/or touching/steadying and/or contact guard assistance as patient completes activity. Assistance may be provided throughout the activity or intermittently. 3-Partial/Moderate Assistance-helper does LESS THAN HALF the effort. [place] lifts, holds or supports trunk or limbs, but provides less than half the effort. 2-Substantial/Maximal Assistance-helper does MORE THAN HALF the effort. [place] lifts or holds trunk or limbs and provides more than half the effort. 1-Uzfljadgx-zpqhsy does ALL the effort. Patient does none of the effort to complete the activity. Or, the assistance of 2 or more helpers is required for the patient to complete the activity. If activity was not attempted, code reason: 7-Patient Refused. 9-Not Applicable-not attempted and the patient did not perform the activity before the current illness, exacerbation or injury. 10-Not Attempted due to Environmental Limitations-(lack of equipment, weather restraints, etc.). 88-Not Attempted due to Medical Conditions or Safety Concerns. Bed Mobility: 6 Transfers (B,C,W/C): 6 Gait: 6 Stairs: 6 Indoor Mobility (Ambulation): Independent Stairs: Independent Pt was indep at her [facility] PT Evaluation-Current Subjective Pt agreeable. Verbalizes that she wants to get stronger to return home. Pain Numeric Pain Scale: 0-No Pain Location: No Pain Reported Pt/Family Goals Return home with her spouse. Objective Patient Orientation: Person, Place, Time, Situation ROM/Strength ROM Lower Extremities WFL Strength Lower Extremities BLE strength is grossly 4-/5 throughout Integumentary/Posture Integumentary Intact. Bowel Incontinence: No Bladder Incontinence: Valdovinos Cath Posture rounded shoulders with forward head; decreased full hip extension in standing. Neuromuscular (Tone, Coordination, Reflexes) Intact without noted deficits Sensory Vision: Functional Hearing: Functional Hand Dominance: Right Sensation Right Lower Extremit: Intact Sensation Left Lower Extremity: Intact Transfers Roll Left to Right (QC): 3 Sit to Lying (QC): 3 (assist with legs to lift into bed) Lying to Sitting/Side of Bed(Q: 3 (assist to initiate roll to her side and to lift up) Sit to Stand (QC): 3 (skilled cues for hand placement and sequencing.) Chair/Jjk-ni-Bmoct Xfer(QC): 3 Toilet Transfer: 3 Heavy cues for sequencing and task completion. Gait Does the Patient Walk?: Yes Mode of Locomotion: Walk Anticipated Mode of Locomotion: Walk Walk 10 feet (QC): 3 Walk 50 ft with 2 Turns(QC): 3 Walk 150 ft (QC): 3 Walking 10ft/uneven surface-QC: 3 Gait Assistive Device: FWW Comments/Gait Description decreased step length with gait with decreased foot clearance; slow pace. Wheelchair Training Does the Pt Use a Wheelchair?: No Stairs 1 Step (curb) (QC): 3 (mn assist for safety and balance. ) 4 Steps (QC): 88 12 Steps (QC): 88 Walking Assistive Device: Walker Balance Sitting Static: Good Sitting Dynamic: Good Standing Static: Fair Standing Dynamic: Fair Picking up an Object (QC): 88 Treatment Functional transfers and gait. Safety eduction and work on sequencing with transfers. Assessment/Needs Post CVA with functional strength and balance deficits noted. Pt requires assist with functional bed mobiltiy, transfers and gait. She requires cues for sequencing and safety. She will benefit from skilled PT to address these deficits to allow her to return to a mod indep level of mobilty and return home as before. Rehab Potential: Good PT Short Term Goals Short Term Goals Time Frame: Aug 02, 2019 Sit to lyin Lying to sitting on side of be: 4 Sit to stand: 4 Walk 150 feet: 4 PT Collection Clerk Goals Collection Clerk Goals PT Snf Goals Time Frame: Aug 11, 2019 Roll Left & Right (QC): 6 Sit to Lying (QC): 6 Lying-Sitting on Side/Bed(QC): 6 Sit to Stand (QC): 6 Chair/Kwu-ja-Wtddu Xfer(QC): 6 Toilet Transfer (QC): 6 Car Transfer (QC): 6 Does the Patient Walk: Yes Walk 10 feet (QC): 6 Walk 50ft with 2 Turns (QC): 6 Walk 150 ft (QC): 6 Walking 10ft on Uneven Surface: 6 1 Step (curb) (QC): 6 4 Steps (QC): 6 12 Steps (QC): 9 Picking up an Object (QC): 4 Does the Pt use WC or Scooter?: No PT Plan Problem List Problem List: Activity Tolerance, Functional Strength, Safety, Balance, Gait, Transfer, Bed Mobility Treatment/Plan Treatment Plan: Continue Plan of Care Treatment Plan: Bed Mobility, Education, Functional Activity Sujatha, Functional Strength, Group Therapy, Gait, Safety, Therapeutic Exercise, Transfers Treatment Duration: Aug 11, 2019 Frequency: At least 5 of 7 days/Wk (IRF) Estimated Hrs Per Day: 1.5 hours per day Patient and/or Family Agrees t: Yes Safety Risks/Education Patient Education: Transfer Techniques, Safety Issues Teaching Recipient: Patient Teaching Methods: Demonstration, Discussion Response to Teaching: Reinforcement Needed Discharge Recommendations Therapy Discharge Recommendati: Post Acute PT Time/GCodes Time In: 1230 Time Out: 1300 Total Billed Treatment Time: 30 Total Billed Treatment visit EVM 15 FA 15 JUANCARLOS ARELLANO PT Jul 28, 2019 13:20
--- NOTE | 2019-07-28 13:28 | NUR ---
I ENTERED THE MED REC ON 07-27-2019 WHEN THE PT WAS ON 4TH FLOOR. THERE WERE NOT ANY MEDS ADDED, DISCONTINUED OR CHANGED THEREFORE I LEFT EVERYTHING THE SAME FOR MED CONTINUATION.
[2019-07-28 13:57] VITALS: BP 167/86
--- NOTE | 2019-07-28 14:28 | Consultation-Cardiology ---
HPI-Cardiology Cardiology Consultation Date of Consultation 07/28/19 Date of Admission Time Seen by Provider: 14:23 Indication: Hypertensive encephalopathy HPI Patient is a 73 y/o female with history of HTN, HLP, DM. Presented to the ER by private vehicle yesterday with c/o difficulty speaking and confusion. Noted to be severely hypertensive upon arrival to ER, was given IV Labetalol. CT Head and MRI brain negative. Patient reports she continued to have some expressive aphasia until this morning, now reports complete resolution of symptoms. Denies any chest pain or dyspnea. Reports occasional palpitation occurring approx once per month, lasting approx 10minutes before resolving on its own. Denies any history of CAD or atrial fibrillation. Currently in IRU for generalized weakness/debility. Patient reports she has been taking warfarin at home "for many years", but unsure why and unsure who monitors PT/INR. Home Medications & Allergies Allergies: Coded Allergies: codeine (Unverified Allergy, Unknown, "MAKES ME CRAZY", 08/13/15) Home Medication List Reviewed: Yes DFA-Vmuigm-Rnlnuc Hx Patient Social History Marital Status: Employed/Student: retired Alcohol Use: Denies Use Recreational Drug Use: No Smoking Status: Never a Smoker Recent Foreign Travel: No Recent Infectious Disease Expo: No Recent Hopitalizations: No Immunizations Up To Date Tetanus Booster (TDap): Less than 5yrs Date of Pneumonia Vaccine: Nov 11, 2011 Date of Influenza Vaccine: Jan 17, 2011 Past Medical History HTN, HLP, DM Family Medical History Significant Family History: No Pertinent Family Hx Family History: Patient reports no known family medical history. Review of Systems-General Review of Systems Constitutional: see HPI; No chills, No diaphoresis, No dizziness, No fever; malaise, weakness EENTM: see HPI, no symptoms reported; No blurred vision, No double vision, No vision loss Respiratory: no symptoms reported, see HPI; No cough, No dyspnea on exertion, No orthopnea, No short of breath, No wheezing Cardiovascular: see HPI; No chest pain, No edema, No Hx of Intervention; palpitations; No syncope, No vascular heart diseas Gastrointestinal: no symptoms reported, see HPI; No abdominal pain, No constipation Genitourinary: no symptoms reported, see HPI Musculoskeletal: no symptoms reported, see HPI; No back pain, No joint pain Psychiatric/Neurological: See HPI; Denies Anxiety, Denies Depressed; Weakness, Other (expressive aphasia) ECG Impression ECG Initial ECG Rhythm: Normal Sinus Physical Exam Physical Exam Vital Signs Vital Signs - First Documented 07/28/19 13:57 Pulse 67 Resp 18 B/P (MAP) 167/86 Pulse Ox 91 O2 Delivery Nasal Cannula O2 Flow Rate 1.00 Capillary Refill : Height, Weight, BMI Height: 5'6.00" Weight: 250lbs. 3.0oz. [id number]; 35.76 BMI Method:Stated General Appearance: No Apparent Distress, WD/WN HEENT: PERRL/EOMI, Normal ENT Inspection Neck: Non Tender, Supple Respiratory: Chest Non Tender, Lungs Clear, Normal Breath Sounds, No Accessory Muscle Use, No Respiratory Distress Cardiovascular: Regular Rate, Rhythm, No Edema, No Gallop, No JVD, No Murmur Gastrointestinal: Non Tender, Soft Rectal: Deferred Back: No CVA Tenderness Extremity: No Calf Tenderness Neurologic/Psychiatric: Alert, Oriented x3, facs teacher II-XII Norm as Tested A/P-Cardiology Admission Diagnosis Hypertensive encephalopathy TIA P DM Assessment/Plan Hypertensive encephalopathy- BP better controlled, but still mildly elevated, I will restart home BP medication, continue to monitor TIA with expressive aphasia- CT Head and MRI head negative, symptoms are resolved, likely due to uncontrolled HTN. I will evaluate 2D Echo, carotid duplex. Start ASA. Continue to monitor telemetry. Nonobstuctive CAD per cardiac cath done in 2011 HL- continue to monitor. DM- management per PCP Obesity Thank you for allowing us to participate in the management of Ms. Lake. This is Charlotte Vega PA-C, as a scribe for Dr. Rahman. \\ Patient was seen and evaluated with Charlotte, I interviewed the patient perform physical examination In summary 73-year-old lady with recent CVA, currently feeling better, had transient slurred speech that has improved today. Had extensive history with hypertension, restart home medication and monitor blood pressure, evaluate 2-D echocardiogram. Monitor lipids CHARLOTTE OLIVER Jul 28, 2019 2:28 pm OCTAVIA RAHMAN MD Jul 28, 2019 3:32 pm
--- NOTE | 2019-07-28 14:55 | Physical Therapy Daily Note ---
PT Daily Note-Current Subjective Pt is sitting in recliner upon arrival. Pt has been working with OT and agrees to work with PT for co-treat. Pain Location: No Pain Reported Mental Status Patient Orientation: Person, Confused, Place Attachments: Oxygen (1L) Transfers SCALE: Activities may be completed with or without assistive devices. 1-Janjhyzfzq-tcnifkh completes the activity by him/herself with no assistance from a helper. 5-Set-up or Clean-up Assistance-helper sets up or cleans up; patient completes activity. [place] assists only prior to or following the activity. 4-Supervision or Touching Assistance-helper provides verbal cues and/or touching/steadying and/or contact guard assistance as patient completes activity. Assistance may be provided throughout the activity or intermittently. 3-Partial/Moderate Assistance-helper does LESS THAN HALF the effort. [place] lifts, holds or supports trunk or limbs, but provides less than half the effort. 2-Substantial/Maximal Assistance-helper does MORE THAN HALF the effort. [place] lifts or holds trunk or limbs and provides more than half the effort. 9-Qbzivqclq-ouifqn does ALL the effort. Patient does none of the effort to complete the activity. Or, the assistance of 2 or more helpers is required for the patient to complete the activity. If activity was not attempted, code reason: 7-Patient Refused. 9-Not Applicable-not attempted and the patient did not perform the activity before the current illness, exacerbation or injury. 10-Not Attempted due to Environmental Limitations-(lack of equipment, weather restraints, etc.). 88-Not Attempted due to Medical Conditions or Safety Concerns. Sit to Lying (QC): 4 Lying to Sitting/Side of Bed(Q: 4 Sit to Stand (QC): 5 Car Transfer (QC): 4 Weight Bearing Right Lower Extremity: Right Full Weight Bearing Left Lower Extremity: Left Full Weight Bearing Gait Training Does the Patient Walk?: Yes Distance: 150' x2 Walk 10 feet (QC): 4 Walk 50 ft with 2 Turns(QC): 4 Walk 150 ft (QC): 4 Gait Persons Needed: 1 Gait Assistive Device: FWW Pt walks with slow candi and needs reminder to stay closer to FWW. Exercises Seated Therapy Exercises: Ankle pumps, Sit to stand (5 reps), Long arc quads, Hip flexion, Kicking activity Seated Reps: 15 Treatments Pt is in need for 2 clinicians due lack of balance especially in dynamic standing situations as well as activity tolerance due to pt is not used to this increased activity at this time. Pt transfers from recliner to standing and ambulates in hallway. Pt completes car transfer before returning to room for sponge bathe and donning gown. See OT note for review of bathe. Pt completes Seated EX at EOB. Pt returns to bed at end of Rx to rest before ST arrives. Pt has all needs met, call light in hand. Assessment Current Status: Fair Progress Pt demonstrates confusion at times and needs redirection to complete. PT Short Term Goals Short Term Goals Time Frame: Aug 02, 2019 Sit to lyin Lying to sitting on side of be: 4 Sit to stand: 4 Walk 150 feet: 4 PT Intermediate Goals Intermediate Goals PT Zinc Plate Grainer Goals Time Frame: Aug 11, 2019 Roll Left & Right (QC): 6 Sit to Lying (QC): 6 Lying-Sitting on Side/Bed(QC): 6 Sit to Stand (QC): 6 Chair/Mdo-rr-Ewzav Xfer(QC): 6 Toilet Transfer (QC): 6 Car Transfer (QC): 6 Does the Patient Walk: Yes Walk 10 feet (QC): 6 Walk 50ft with 2 Turns (QC): 6 Walk 150 ft (QC): 6 Walking 10ft on Uneven Surface: 6 1 Step (curb) (QC): 6 4 Steps (QC): 6 12 Steps (QC): 9 Picking up an Object (QC): 4 Does the Pt use WC or Scooter?: No PT Plan Problem List Problem List: Activity Tolerance, Functional Strength, Safety, Balance, Gait, Transfer Treatment/Plan Treatment Plan: Continue Plan of Care Treatment Plan: Bed Mobility, Education, Functional Activity Sujatha, Functional Strength, Group Therapy, Gait, Safety, Therapeutic Exercise, Transfers Treatment Duration: Aug 11, 2019 Frequency: At least 5 of 7 days/Wk (IRF) Estimated Hrs Per Day: 1.5 hours per day Patient and/or Family Agrees t: Yes Safety Risks/Education Patient Education: Gait Training, Transfer Techniques, Correct Positioning, Safety Issues Teaching Recipient: Patient Teaching Methods: Discussion Response to Teaching: Reinforcement Needed Time/GCodes Time In: 1330 Time Out: 1430 Total Billed Treatment Time: 60 Total Billed Treatment 1, FA x4 (60m) Co-treat w/OT 60m ([id number]) HERNAN KATZ LOAN ANALYST Jul 28, 2019 14:55
--- NOTE | 2019-07-28 14:56 | Occupational Therapy Eval ---
OT Evaluation-General/PLF Medical Diagnosis Admission Date Jul 28, 2019 at 12:48 Medical Diagnosis: CVA Onset Date: Jul 28, 2019 Therapy Diagnosis Therapy Diagnosis: impaired ADLs/functional mobility Height/Weight Height (Feet): 5 Height (Inches): 6.00 Weight (Pounds): 250 Weight (Ounces): 3.0 Precautions Precautions/Isolations: Standard Precautions Referral Physician: Alvaro Referral Reason: Evaluation/Treatment Medical History Pertinent Medical History: Arthritis, CVA, DM, HTN Additional Medical History narcolepsy, HLP Current History Pt was sitting in a room yesterday morning where her found her. Pt indicated she was not feeling right and her took her to the ER. Pt admitted acutely on 07/27/2019 with AMS and found to have a hypertensive emergency; deemed CVA. She then transferred to ARU on 07/28/2019 for continued medication management and skilled therapies. Social History Home: Single Level Current Living Status: Spouse Entry Into Home: Stairs With Railing Steps Into Home: 5 ADL-Prior Level of Function SCALE: Activities may be completed with or without assistive devices. 9-Sasxfgilur-mjvlrjv completes the activity by him/herself with no assistance from a helper. 5-Set-up or Clean-up Assistance-helper sets up or cleans up; patient completes activity. [place] assists only prior to or following the activity. 4-Supervision or Touching Assistance-helper provides verbal cues and/or touching/steadying and/or contact guard assistance as patient completes activity. Assistance may be provided throughout the activity or intermittently. 3-Partial/Moderate Assistance-helper does LESS THAN HALF the effort. [place] lifts, holds or supports trunk or limbs, but provides less than half the effort. 2-Substantial/Maximal Assistance-helper does MORE THAN HALF the effort. [place] lifts or holds trunk or limbs and provides more than half the effort. 3-Aapgcadhx-ohpjok does ALL the effort. Patient does none of the effort to complete the activity. Or, the assistance of 2 or more helpers is required for the patient to complete the activity. If activity was not attempted, code reason: 7-Patient Refused. 9-Not Applicable-not attempted and the patient did not perform the activity before the current illness, exacerbation or injury. 10-Not Attempted due to Environmental Limitations-(lack of equipment, weather restraints, etc.). 88-Not Attempted due to Medical Conditions or Safety Concerns. ADL PLOF Comments Pt provided information for PLOF, when asked about her home set up, pt reports she keeps thinking about a previous house she lived at instead of her current home. She was unable to recall if she has a tub/shower or a walk in shower. Pt indicated she primarily took sponge baths at the sink at her prior level. She was independent in all ADLs, and did not use AD for functional mobility. Self Care: Independent Functional Cognition: Independent OT Current Status Subjective Pt seated upright in recliner eating lunch. She was agreeable to OT Evaluation and tx. Pt denied having pain. Pain Numeric Pain Scale: 0-No Pain Mental Status/Objective Patient Orientation: Person, Place, Time Attachments: Valdovinos Catheter, Oxygen (1L) Current Glasses/Contacts: No Hearing Aids: No Dentures/Partials: No Hand Dominance: Right Upper Extremity ROM WFL, BUE shoulder flexion to approx 160 degrees, she was able to touch back of her head with hands. Upper Extremity Coordination WFL Upper Extremity Sensation When asked if she has any tingling/numbness in UEs pt replied "I don't think so" Upper Extremity Strength grossly 4/5 ADL-Treatment Eating (QC): 5 (Pt able to bring chopped diet to her mouth without assistance. ) Oral Hygiene (QC): 5 (based on acute tx this morning prior to pt transferring to ARU, pt required set up assistance at recliner. ) Shower/Bathe Self (QC): 4 (Sponge Bath: CGA during stand. Pt able to wash all parts, noted perseveration where pt required verbal cues to continue washing other parts.) Upper Body Dressing (QC): 3 (Pt donned/doffed hospital gown as a cotton puller shirt, she required min A with pulling sleeves all the way up.) Lower Body Dressing (QC): 3 (Min A with clothing management. OT threaded catheter line through pants, then pt donned over BLEs. CGA during stand as pt managed clothing up.) On/Off Footwear (QC): 3 (Pt able to doff slipper socks and andre with increased time. Min A with managing sock all the way to her toes. ) Toileting Hygiene (QC): 4 (Pt denied completing task during session, based on clincial reasoning with dressing and bathing, pt would be able to complete hygiene and clothing management with CGA) Pt required increased time with all ADLs. She required verbal cues during sessio n for sequencing of task. Pt perseverated during sponge bath, washing her face ~5 times before requiring cue to move to her next body part. Pt then perseverated on her arms requiring cues to continue with the bath and to wash her stomach. Pt replied "oh yes, that is what I was supposed to do" Other Treatments Pt sitting upright in recliner, provided information about PLOF and home set up as she ate her lunch. Pt then participated in OT/PT cotreat due to increased medical complexity and safety requiring the skill of 2 disciplines which a rehabilitation program coordinator could not perform, especially lack of balance in dynamic standing situation.. OT focused on UE placement, ADLs, cues for sequencing and safety while PT focused on LE placement and overall gross movements. Pt then participated in ADL session consisting of sponge bath and dressing. Pt then stood at FWW and brushed her hair, noted some swaying back and forth as OT/PT stood at each side of pt with CGA. Pt stated she would like to lay down at the end of the session. Post OT/PT co-treat, pt laying in bed, call light in reach and all needs met. Pt is in need for 2 clinicians due lack of balance especially in dynamic standing situations as well as activity tolerance due to pt is not used to this increased activity at this time. Education OT Patient Education: Correct positioning, Energy conservation, Modified ADL techniques, Progress toward Goal/Update tx plan, Purpose of tx/functional activities, Safety issues, Transfer techniques Teaching Recipient: Patient Teaching Methods: Discussion Response to Teaching: Verbalize Understanding OT Unpaid Intern Goals Long-Term Goals Time Frame: Aug 13, 2019 Eating (QC): 6 Oral Hygiene (QC): 6 Toileting Hygiene (QC): 6 Shower/Bathe Self (QC): 6 Upper Body Dressing (QC): 6 Lower Body Dressing (QC): 6 On/Off Footwear (QC): 6 Additional Goals: 1-Demonstrate ADL Tasks, 2-Verbalize Understanding, 3- ImproveStrength/Sujatha 1=Demonstrate adherence to instructed precautions during ADL tasks. 2=Patient will verbalize/demonstrate understanding of assistive devices/modifications for ADL. 3=Patient will improve strength/tolerance for activity to enable patient to perform ADL's. OT Education/Plan Problem List/Assessment Assessment: Decreased Activ Tolerance, Decreased Safety Aware, Decreased UE Strength, Impaired Cognition, Impaired Funct Balance, Impaired I ADL's, Impaired Self-Care Skills Discharge Recommendations Plan/Recommendations: Continue POC Therapy Discharge Recommendati: Post Acute OT Treatment Plan/Plan of Care Treatment,Training & Education: Yes Patient would benefit from OT for education, treatment and training to promote independence in ADL's, mobility, safety and/or upper extremity function for ADL's. Plan of Care: ADL Retraining, Functional Mobility, Group Exercise/Act as Ind, UE Funct Exercise/Act Treatment Duration: Aug 13, 2019 Frequency: At least 5 of 7 days/Wk (IRF) Estimated Hrs Per Day: 1.5 hours per day Agreement: Yes Rehab Potential: Good Time/GCodes Start Time: 13:00 Stop Time: 14:30 Total Time Billed (hr/min): 90 Billed Treatment Time 0516-4552 OT eval/tx [id number] OT/PT co-treat 1, EVM (15'), ADL 5 (75') SHAAN AGUIRRE OT Jul 28, 2019 14:56
--- NOTE | 2019-07-28 15:43 | ST Cognitive Linguistic Eval ---
Speech Evaluation-General Medical Diagnosis CVA Onset Date: Jul 28, 2019 Therapy Diagnosis Therapy Diagnosis: Cognitive-communication Referral Referring Physician: Dr. John Reason for Referral: Evaluation/Treatment Medical History Pertinent Medical History: Arthritis, CVA, DM, HTN Reviewed History: Yes Social History Current Living Status: Spouse Speech PLF-Current Status Prior Level of Function Patient lived at home with her where she was independent for most of her daily needs. Subjective Patient was pleasant and cooperative with the cognitive assessment. Language Eval: Auditory Comprehends Simple Yes/No Ques: Functional Indent/Objects Multiple [place]: Functional Ident/Pics in Multiple [place]: Functional Follows 1-Step Commands: Functional Follows Complex Directions: Mild Follows General Conversations: Mild Language Eval: Verbal Language Completes Spontaneous Greeting: Functional Produces Auto, Serial Info: Mild Imitates Simple Words/Phrases: Functional Word Finding: Mild Requests Basic Needs: Functional States Basic Personal Info: Functional Expresses Complex Ideas: Mild Objective Cognitive Domain Attention: WNL Memory: Mild Problem Solving: Mild Executive Functions: Mild Visuospatial Skills: WNL Composite Severity Rating: Mild Clock Drawing Severity Rating: Mild Objective Formal/Standardized Tests [facility] Status ([facility]) Results , within the Mild Neurocognitive Disorder range of function Oral Motor/Speech Production Within Normal Range of function Impression The patient is a 73 year woman who was admitted to the ARU s/p CVA. Patient was given the SLUMS at bedside for cognitive assessment. A score of 24/30 was obtained placing her in the MNCD level of function. Deficits are noted in memory, problem solving, executive functioning and safety awareness. Patient qualifies for skilled ST services. Patient will receive skilled ST with focus on safety awareness and improving overall cognitive level of function in order to return home safely. Speech Patient Assess Expression of Ideas/Wants: Frequently (2) Understanding Verbal Content: Usually Understands (3) Brief Interview-Mental Status: Yes Repetition of Three Words: Three (3) Temporal Orientation: Year: Correct (3) Temporal Orientation: Month: Accurate within 5 days(2) Temporal Orientation: Day: Correct (1) Recall : Wear to say "Sock": Yes,after cueing (1) Recall : Color: Yes, after cueing (1) Recall : Bed: No, could not recall (0) Memory/Recall Ability: That he or she is in a hsp/hsp unit Speech Short Term Goals Short Term Goals Short Term Goals 1) Patient will complete memory tasks related to her daily needs at 90% or greater. 2) Patient will complete problem solving tasks related to her daily needs at 90% or greater. 3) Patient will complete safety awareness tasks related to her daily needs at 90% or greater. 4) Patient will complete executive function tasks related to her daily needs at 90% or greater. Speech Nursing Home Goals [employer] Goals Patient will improve cognitive-communication necessary for safety and daily living tasks with minimal assist. Speech-Plan Patient/Family Goals Patient/Family Goals: Patient plans on returning home with her upon rehab discharge. Treatment Plan Speech Therapy Treatment Plan: Continue Plan of Care Frequency: 5 times per week Estimated Hrs Per Day: .5 hour per day Rehab Potential: Good Barriers to Learning: Patient's recent CVA Pt/Family Agrees to Plan: Yes Safety Risks/Education Teaching Recipient: Patient Teaching Methods: Demonstration, Discussion Response to Teaching: Verbalize Understanding, Return Demonstration Education Topics Provided: Safety within her room and communication of wants/needs Time Speech Therapy Time In: 14:30 Speech Therapy Time Out: 14:45 Total Billed Time: 15 Billed Treatment Time 1, SPSNDVICKI Humphreys Jul 28, 2019 15:43
[2019-07-28] MEDS: ASPIRIN E.C. 81 MG (ECOTRIN) TAB PO SCH (16:15)
--- NOTE | 2019-07-28 16:28 | Diagnostic Imaging Report ---
PROCEDURE: US carotid duplex, bilateral. TECHNIQUE: Multiple real-time grayscale images were obtained over the carotid arteries in various projections, bilaterally. Additional spectral analysis and color Doppler duplex images were also obtained. INDICATION: Transient ischemic attack. FINDINGS: The previous color Doppler exam performed on 07/10/2016 noted mild atherosclerotic disease involving both carotid systems but failed to show any sign of a hemodynamically significant stenosis. On this exam, the flow velocity still failed to show any sign of a hemodynamically significant stenosis of the common or internal carotid arteries. Both vertebral arteries were noted and there was antegrade flow bilaterally. IMPRESSION: There is mild atherosclerotic disease involving both carotid systems. When compared to the prior study, there does not appear to have been any significant change. There is still no evidence for a hemodynamically significant stenosis of the common or internal carotid arteries. Parameters based on the consensus panel Cohen-Scale and Doppler ultrasound criteria published March 2003, Radiology, Volume 229. DOPPLER (peak systolic velocity M/S Right Left CCA 0.66 0.68 ICA Proximal 0.46 0.81 ICA Mid 0.30 0.90 ICA Distal NOT SEEN NOT SEEN RATIO 0.69 1.33 ECA 0.71 0.70 VERT 0.43 0.28 Dictated by: Dictated on workstation # [id number]
--- NOTE | 2019-07-28 16:30 | NUR ---
DYSON REMOVED PER ORDERS, PATIENT TOLERATED WELL. WILL MONITOR FOR S/S OF INFECTIONS.
[2019-07-28] MEDS: DOCUSATE SODIUM 100 MG (COLACE) CAP PO SCH (20:12)
[2019-07-28] MEDS: SENNA W/DOCUSATE (SENOKOT S) TABLET PO SCH (20:13)
[2019-07-28] MEDS: polyethylene glycoL POWDER 17 GM (MIRALAX) PACK PO SCH (20:13)
[2019-07-28] MEDS: ENOXAPARIN 40 MG/0.4 ML (LOVENOX) SYR SC SCH (20:39)
--- NOTE | 2019-07-28 20:40 | PM&R Post Admission Assessment ---
PM&R HP Date of Visit: Jul 28, 2019 Time of Visit: 13:30 History of Present Illness CC: Stroke versus hypertesive encephalopathy HPI: This is a 73yoWF clinic pt of Dr. Wynn who was her normal self when she went to bed at 9:00pm the night before admit and her found her watching TV in the middle of the night and assessed she had altered mental status so he brought her in, had a stroke protocol evaluation, Ct scan no ev idence of stroke, and she was admitted and still is slightly confused with poor recall and overall generalized weakness meeting criteria for inpatient rehab. MRI completed revealing no significant CVA. Dr Rahman has been consulted for cardiac risk stratification. Past Daxrkqu-Dnruku-Dkolib Hx Past Med/Social Hx: Reviewed Nursing Past Med/Soc Hx, Reviewed and Corrections made Patient Social History Marrital Status: Employed/Student: retired Alcohol Use: Denies Use Recreational Drug Use: No Smoking Status: Former Smoker Former Smoker, Quit: Jul 27, 1961 Type Used: Cigarettes Physical Abuse Screen: No Sexual Abuse: No Recent Foreign Travel: No Contact w/other who traveled: No Recent Hopitalizations: No Recent Infectious Disease Expo: No Immunizations Up To Date Tetanus Booster (TDap): Less than 5yrs Pediatric: Yes Date of Pneumonia Vaccine: Nov 11, 2011 Date of Influenza Vaccine: Feb 16, 2019 Seasonal Allergies Seasonal Allergies: No Past Medical History Surgeries: Cardiac, Eye Surgery, Gallbladder, Hysterectomy, Rectal Currently Using CPAP: No Currently Using BIPAP: No Cardiac: High Cholesterol, Hypertension Neurological: Stroke : No Reproductive: Yes Sexually Transmitted Disease: No HIV/AIDS: No Hysterectomy, Menopausal Gastrointestinal: Gastroesophageal Reflux, Hemorrhoids, Hiatal Hernia Musculoskeletal: Arthritis Endocrine: Hypothyroidsim, Diabetes, Non-Insulin dep Loss of Vision: Denies Psychosocial: Anxiety History of Blood Disorders: No Adverse Reaction to Blood Askew: No Family History Patient reports no known family medical history. No Pertinent Family Hx Prior Level of Function Bed Mobility: 6 Transfers: 6 Gait: 6 Stairs: 6 Indoor Mobility (Ambulation): Independent Stairs: Independent Self Care: Independent Functional Cognition: Independent Current Level of Fuctioning Roll Left to Right: 3 Sit to Lyin Lying to Sitting/Side of Bed: 4 Sit to Stand: 5 Chair/Scv-xi-Fqgyt Xfer: 3 Car Transfer: 4 Does the Patient Walk: Yes Mode of Locomotion: Walk Anticipated Mode of Locomotion: Walk Walk 10 feet: 4 Walk 50 ft with 2 Turns: 4 Walk 150 ft: 4 Walking 10ft on uneven surface: 3 Gait Assistive Device: FWW Does the Pt Use a Wheelchair: No 1 Step (curb): 3 (mn assist for safety and balance. ) 4 Steps: 88 Walking Assistive Device: Walker 12 Steps: 88 Picking up an Object: 88 Eatin (Pt able to bring chopped diet to her mouth without assistance. ) Oral Hygiene: 5 (based on acute tx this morning prior to pt transferring to ARU, pt required set up assistance at recliner. ) Shower/Bathe Self: 4 (Sponge Bath: CGA during stand. Pt able to wash all parts, noted perseveration where pt required verbal cues to continue washing other parts.) Upper Body Dressin (Pt donned/doffed hospital gown as a assembler for puller over hand shirt, sh e required min A with pulling sleeves all the way up.) Lower Body Dressin (Min A with clothing management. OT threaded catheter line through pants, then pt donned over BLEs. CGA during stand as pt managed clothing up.) On/Off Footwear: 3 (Pt able to doff slipper socks and andre with increased time. Min A with managing sock all the way to her toes. ) Toileting Hygiene: 4 (Pt denied completing task during session, based on clincial reasoning with dressing and bathing, pt would be able to complete hygiene and clothing management with CGA) PM&R Allergy/Meds/Data Review Allergies Coded Allergies: codeine (Unverified Allergy, Unknown, "MAKES ME CRAZY", 08/13/15) Home Medications Scheduled Budesonide/Formoterol Fumarate (Budesonide-Formoterol 160-4.5), 2 PUFF PO BID, (Reported) Metoprolol Succinate (Metoprolol Succinate), 50 MG PO DAILY, (Reported) Warfarin Sodium (Warfarin Sodium), 4 MG PO DAILY, (Reported) Discontinued Medications Allopurinol (Allopurinol), 1 TAB PO DAILY, (Reported) Discontinued Reason: No Longer Taking Alprazolam (Xanax), 1 TAB PO TID PRN, (Reported) Discontinued Reason: No Longer Taking Hctz/Valsartan (Diovan Hct 320-25 Mg Tablet), 1 TAB PO DAILY, (Reported) Discontinued Reason: No Longer Taking Levothyroxine Sodium (Levothyroxine Sodium), (Reported) Discontinued Reason: No Longer Taking Methylphenidate Hcl (Methylphenidate Er), 20 MG PO TID, (Reported) Discontinued Reason: No Longer Taking Metoprolol Succinate (Metoprolol Succinate Xl 50 Mg), 1 EACH PO DAILY, (Reported) Discontinued Reason: No Longer Taking Pantoprazole Sodium (Pantoprazole Sodium), 1 TAB PO DAILY, (Reported) Discontinued Reason: No Longer Taking Penicillin V Potassium (Penicillin V Potassium), (Reported) Discontinued Reason: No Longer Taking Simvastatin (Simvastatin), 1 TAB PO DAILY, (Reported) Discontinued Reason: No Longer Taking Tramadol HCl (Ultram), 50 MG PO Q4H Discontinued Reason: No Longer Taking Valacyclovir HCl (Valtrex), 1,000 MG PO TID Discontinued Reason: No Longer Taking Valsartan/Hydrochlorothiazide (Valsartan-Hctz 320-25 mg Tab), 1 TAB PO DAILY, (Reported) Discontinued Reason: No Longer Taking Warfarin Sod (Coumadin 2.5 Mg), 4 MG PO DAILY@18, (Reported) Discontinued Reason: No Longer Taking Current Medications Current Medications Reviewed Review of Systems Constitutional: see HPI, dizziness, weakness Psychiatric/Neurological: Numbness, Paresthesia, Tingling, Weakness Physical Exam Physical Exam Vital Signs Vital Signs - First Documented 07/28/19 13:57 Pulse 67 Resp 18 B/P (MAP) 167/86 Pulse Ox 91 O2 Delivery Nasal Cannula O2 Flow Rate 1.00 Capillary Refill : Height, Weight, BMI Height: 5'6.00" Weight: 250lbs. 3.0oz. [id number]; 35.76 BMI Method:Stated General Appearance: No Apparent Distress, WD/WN, Chronically ill, Obese HEENT: PERRL/EOMI, Normal ENT Inspection, Pharynx Normal Neck: Non Tender, Supple Respiratory: Chest Non Tender, Lungs Clear, Normal Breath Sounds, No Accessory Muscle Use, No Respiratory Distress Cardiovascular: Regular Rate, Rhythm, No Edema, No Gallop, No JVD, No Murmur Gastrointestinal: Normal Bowel Sounds, No Organomegaly, No Pulsatile Mass, Non Tender, Soft Rectal: Deferred Back: Normal Inspection, No CVA Tenderness, No Vertebral Tenderness Extremity: Normal Capillary Refill, Normal Inspection, Normal Range of Motion, Non Tender, No Calf Tenderness Neurologic/Psychiatric: Alert, Oriented x3, 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 Norm as Tested, Abnormal Gait, Depressed Affect, Motor Weakness (generalized) Skin: Normal Color, Warm/Dry PM&R Medical Assessment & Plan REHAB/MEDICAL ASSESSMENT AND PLAN: REHAB IMPAIRMENT GROUP: HTN encephalopathy ETIOLOGIC DIAGNOSIS: HTN encephalopathy The comorbidities that impact the patients function and/or functional outcome by: chronic debility, confusion residual, HTN OOC REHAB PLAN: The patient is being admitted to our comprehensive inpatient rehabilitation facility and can tolerate the intensity of service consisting of at least: 180 minutes of therapy a day, 5 out of 7 days a week Rehab treatment will consist of: PT OT ST will focus on regaining ADL independence and ambulate without fall risk The patient/family has a good understanding of our discharge process and will benefit from an interdisciplinary inpatient rehabilitation program. The patient has potential to make improvement and is in need of at least two of the following multidisciplinary therapies including but not limited to physical, occupational, speech, and prosthetics and orthotics. Additionally the patient will need services from respiratory, nutritional services, wound care, psychology, etc. (Customize this to each patient). Given the patients complex condition and risk of further medical complications, rehabilitation services cannot be safely or effectively provided at a lower level of care such as a care home facility. BARRIERS TO DISCHARGE: Confusion residual ESTIMATED LOS: 7 days DISPOSITION: Home RELEVANT CHANGES SINCE PREADMISSION SCREENING: I have compared the patients medical and functional status at the time of the preadmission screening and there are: no changes PROGNOSIS: Good REHABILITATION GOALS: 1. PT OT ST will focus on regaining ADL independence and ambulate without fall risk All the above goals were reviewed with the patient and he/she is in agreement. By signing this document, I acknowledge that I have personally performed a full physical examination on this patient within 24 hours of admission to this inpatient rehabilitation facility and have determined the patient to be able to tolerate the above course of treatment at an intensive level for a reasonable period of time. I will be completing a detailed individualized Plan of Care for this patient by day #4 of the patients stay based upon the Preadmission Screen, the Post-Admission Evaluation, and the therapy evaluations. Admission Dx/Comorbidities: (1) Hypertensive encephalopathy Status: Acute ICD Codes: I67.4 - Hypertensive encephalopathy (2) Non-insulin dependent type 2 diabetes mellitus Status: Chronic ICD Codes: E11.9 - Type 2 diabetes mellitus without complications (3) Essential (primary) hypertension Status: Chronic ICD Codes: I10 - Essential (primary) hypertension (4) CVA (cerebral vascular accident) Status: Acute ICD Codes: I63.9 - Cerebral infarction, unspecified (5) Hypothyroidism ICD Codes: E03.9 - Hypothyroidism, unspecified (6) GERD (gastroesophageal reflux disease) ICD Codes: K21.9 - Gastro-esophageal reflux disease without esophagitis CARISSA PETERSON DO Jul 28, 2019 20:40
[2019-07-29 05:06] VITALS: BP 179/78
[2019-07-29 06:31] LABS: BASOPHILS % (AUTO) 0 % (0-10); EOSINOPHILS # (AUTO) 0.1 10^3/uL (0.0-0.3); EOSINOPHILS % (AUTO) 1 % (0-10); HEMATOCRIT 41 % (35-52); HEMOGLOBIN 12.8 G/DL (11.5-16.0); LYMPHOCYTES % (AUTO) 22 % (12-44); MEAN CORPUSCULAR HEMOGLOBIN 29 PG (25-34); MEAN CORPUSCULAR HGB CONC 31 G/DL (32-36); MEAN CORPUSCULAR VOLUME 94 FL (80-99); MONOCYTES # (AUTO) 0.7 X 10^3 (0.0-1.0); MONOCYTES % (AUTO) 8 % (0-12); NEUTROPHILS # (AUTO) 6.1 X 10^3 (1.8-7.8); NEUTROPHILS % (AUTO) 68 % (42-75); PLATELET COUNT 299 10^3/uL (130-400); RED CELL DISTRIBUTION WIDTH 14.7 % (10.0-14.5); WHITE BLOOD COUNT 8.9 10^3/uL (4.3-11.0)
[2019-07-29 06:47] LABS: ALBUMIN 3.3 GM/DL (3.2-4.5); BILIRUBIN,TOTAL 0.7 MG/DL (0.1-1.0); CALCIUM 9.1 MG/DL (8.5-10.1); CREATININE SERUM 1.44 MG/DL (0.60-1.30); POTASSIUM 3.7 MMOL/L (3.6-5.0); TOTAL PROTEIN 5.7 GM/DL (6.4-8.2)
[2019-07-29] MEDS: ASPIRIN E.C. 81 MG (ECOTRIN) TAB PO SCH (08:23)
[2019-07-29] MEDS: meTOproloL SUCCINATE 50 MG (TOPROL XL) TAB PO SCH (08:23)
[2019-07-29] MEDS: SENNA W/DOCUSATE (SENOKOT S) TABLET PO SCH ×2 (08:23→19:24)
[2019-07-29] MEDS: polyethylene glycoL POWDER 17 GM (MIRALAX) PACK PO SCH ×2 (08:23→19:24)
[2019-07-29] MEDS: DOCUSATE SODIUM 100 MG (COLACE) CAP PO SCH ×2 (08:24→19:24)
--- NOTE | 2019-07-29 08:45 | Individualized Plan of Care ---
Individualized Plan of Care Rehab Nursing IPOC Order Admission Date Jul 28, 2019 at 12:48 Current Orders Orders Admission Order(Inpt,Obs,Sdc) (07/28/19 11:55) Vital Signs: Per Unit Policy ( 08,16,00 (07/28/19 11:55) Curtis Hyde 09,21 (07/28/19 11:55) Sequential Compression Device Q4H (07/28/19 11:55) Bottoming Room Supervisor-Inpt Rehab Con (07/28/19 11:55) Rehab Nursing Orders-Ipoc (07/28/19 11:55) Physical Therapy Rehab Orders (07/28/19 11:55) Occupational Therapy Rehab Ord (07/28/19 11:55) Speech Therapy Rehab Orders (07/28/19 11:55) Cbc With Automated Diff (07/29/19 06:00) Comprehensive Metabolic Panel (07/29/19 06:00) General/Regular (07/28/19 Dinner) Intake & Output 06,14,22 (07/28/19 11:55) Precautions (Aru) (07/28/19 11:55) Weekly Weight WEEK (07/28/19 11:55) Rehab-Intensity Of Therapy (07/28/19 11:55) Initiate Admission Nursing Pro .admission (07/28/19 11:55) Acetaminophen Tablet (Tylenol Tablet) (07/28/19 12:00) Alprazolam Tablet (Xanax Tablet) (07/28/19 12:00) Calcium Carbonate Chew Tablet (Antacid C (07/28/19 12:00) Diphenhydramine Tablet (Benadryl Tablet) (07/28/19 12:00) Docusate Sodium Capsule (Colace Capsule) (07/28/19 21:00) Docusate Sodium Capsule (Colace Capsule) (07/28/19 12:00) Bisacodyl Suppository (Dulcolax Supposit (07/28/19 12:00) Lactulose Oral Solution (Enulose Oral So (07/28/19 12:00) Na Phos/Na Biphos Enema (Fleet Enema Jose Alberto (07/28/19 12:00) Guaifenesin/Codeine Syrup (Robitussin Ac (07/28/19 12:00) Loperamide Tablet (Imodium Tablet) (07/28/19 12:00) Enoxaparin Injection (Lovenox Injection) (07/28/19 21:00) Melatonin Tablet (Melatonin Tablet) (07/28/19 12:00) Polyethylene Glycol Powder Pkt (Miralax (07/28/19 21:00) Ondansetron Injection (Zofran Injectio (07/28/19 12:00) Ondansetron Oral Dissolve Tab (Zofran (07/28/19 12:00) Senna S Tablet (Senokot S Tablet) (07/28/19 21:00) Code/Resuscitation (07/28/19 11:55) Initiate Admission Nursing Pro .admission (07/28/19 11:55) Consult Cardiology (07/28/19 11:55) Catheter(Urinary) Discontinue (07/28/19 11:59) Transfer - Bed/Room/Location (07/28/19 12:30) Echo W Doppler/Color Flow (07/28/19 14:06) Us Carotid David Complete [id number] (07/28/19 14:06) Aspirin Enteric Coated Tablet (Ecotrin T (07/28/19 14:15) Telemetry (07/28/19 14:10) Telemetry Nursing Assessment ( (07/28/19 14:10) Patient Visit (07/28/19 ) Pt Eval Moderate Complexity (07/28/19 ) Patient Visit (07/28/19 ) Pt Eval Moderate Complexity (07/28/19 ) Functional Activities, Ea 15 (07/28/19 ) Patient Visit (07/28/19 ) Functional Activities, Ea 15 (07/28/19 ) Metoprolol Succinate (Xl) Tab (Toprol Xl (07/29/19 09:00) Patient Visit (07/28/19 ) Speech Sound Lang Comp (07/28/19 ) Patient Visit (07/29/19 ) Treat. Speech/Lang/Voice (07/29/19 ) Oxygen Delivery Set Up (07/29/19 17:12) Amlodipine Tablet (Norvasc Tablet) (07/30/19 09:00) Clonidine Tablet (Catapres Tablet) (07/29/19 22:15) Rehab Nursing Orders: Ongoing Assess. of Cognitive Status, Ongoing Assess. of Function Status, Bladder Management, Bladder Scan, Bladder Training, Bowel Management, Bowel Training, Disease Management & Educaiton, DVT Prophylaxis, Fall Prevention, Fluid/Electrolyte/Nutrition Mgmt, Infection Prevention, Medication Management & Education, Management of Risks & Complications, Nutrition Management, Pain Management, Patient/Family Support, Safety Management Intensity of Therapy to be met Patient to be seen: Min.3h per day/5 of 7d PT IPOC Problem List: Activity Tolerance, Functional Strength, Safety, Balance, Gait, Transfer Treatment Plan: Continue Plan of Care Bed Mobility, Education, Functional Activity Sujatha, Functional Strength, Group Therapy, Gait, Safety, Therapeutic Exercise, Transfers Treatment Duration: Aug 11, 2019 Frequency: At least 5 of 7 days/Wk (IRF) Estimated Hrs Per Day: 1.5 hours per day OT IPOC Problems: Decreased Activ Tolerance, Decreased Safety Aware, Decreased UE Strength, Impaired Cognition, Impaired Funct Balance, Impaired I ADL's, Impaired Self-Care Skills OT Treatment, Training and Edu: Yes Plan of Care: ADL Retraining, Functional Mobility, Group Exercise/Act as Ind, UE Funct Exercise/Act Treatment Duration: Aug 13, 2019 Frequency: At least 5 of 7 days/Wk (IRF) Estimated Hrs Per Day: 1.[address] IPOC Speech Therapy Treatment Plan: Continue Plan of Care Treatment Duration: Jul 28, 2019 Frequency: 5 times per week Estimated Hrs Per Day: .5 hour per day Bottoming Room Supervisor/Case Mgmt Bottoming Room Supervisor/Case Managemen: Discharge Planning Dietitian/Electronic Commerce Specialist Dietitian/Electronic Commerce Specialist to monitor nutritional status and make changes and/or recommendations as needed and work with speech pathology on dietary upgrades as the occur. Physician IPOC Medical Issues being managed closely and that require the 24 hour availability of a physician: Continued HTN OOC and recent encephalopathic episode requiring Telemetry by Cardiology due to high risk for recurrent neuro event Medical Issues: Bowel/Bladder Function, DVT Prophylaxis, Falls Precautions, Fluid/Electrolyte/Nutrition Balance, Infection Protection, Pain Management Brief Synthesis of Preadmission Screen, Post-Admission Evaluation, and Therapy Evaluations: PT OT ST will focus on regaining independence and work on cognitive deficits and regain ADL's and ambulation with fall risk prevention Medical Prognosis: Good Anticipated Length of Stay: 7 days CARISSA PETERSON DO Jul 29, 2019 08:45
--- NOTE | 2019-07-29 08:46 | PM&R Progress Note ---
Subjective HPI/CC On Admission Date Seen by Provider: Jul 29, 2019 Time Seen by Provider: 08:45 Subjective/Events-last exam Pt settling in well Dr. Rahman did monitor her and will keep telemetry for now No longer on Coumadin More forgetful but that appears to be a more chronic issue Slum score is 24/30 Creatinine 1.44 Bowels are moving okay BP remains high I added some meds Valodvinos is out and urinating well Checked meds and labs Reviewed therapy notes Conferred with forge shop machine repairer of Systems General: Fatigue Objective Exam Vital Signs Vital Signs Date Time Temp Pulse Resp B/P (MAP) Pulse Ox O2 Delivery O2 Flow Rate FiO2 07/29/19 20:17 Nasal Cannula 1.00 07/29/19 19:00 72 07/29/19 17:27 36.7 18 178/83 (114) 93 Capillary Refill : Less Than 3 Seconds General Appearance: No Apparent Distress, WD/WN, Chronically ill, Obese HEENT: PERRL/EOMI, Normal ENT Inspection, Pharynx Normal Neck: Non Tender, Supple Respiratory: Chest Non Tender, Lungs Clear, Normal Breath Sounds, No Accessory Muscle Use, No Respiratory Distress Cardiovascular: Regular Rate, Rhythm, No Edema, No Gallop, No JVD, No Murmur Gastrointestinal: Normal Bowel Sounds, No Organomegaly, No Pulsatile Mass, Non Tender, Soft Rectal: Deferred Back: Normal Inspection, No CVA Tenderness, No Vertebral Tenderness Extremity: Normal Capillary Refill, Normal Inspection, Normal Range of Motion, Non Tender, No Calf Tenderness Neurologic/Psychiatric: Alert, Oriented x3, workforce development specialist II-XII Norm as Tested, Abnormal Gait, Depressed Affect, Motor Weakness (generalized) Skin: Normal Color, Warm/Dry Results/Procedures Lab Laboratory Tests 07/29/19 05:32 Patient resulted labs reviewed. FIM Transfers Therapy Code Descriptions/Definitions Functional [place] Measure: 0=Not Assessed/NA 4=Minimal Assistance 1=Total Assistance 5=Supervision or Setup 2=Maximal Assistance 6=Modified [place] 3=Moderate Assistance 7=Complete IndependenceSCALE: Activities may be completed with or without assistive devices. 7-Vkoxnzummc-kfixvqx completes the activity by him/herself with no assistance from a helper. 5-Set-up or Clean-up Assistance-helper sets up or cleans up; patient completes activity. [place] assists only prior to or following the activity. 4-Supervision or Touching Assistance-helper provides verbal cues and/or touching /steadying and/or contact guard assistance as patient completes activity. Assistance may be provided throughout the activity or intermittently. 3-Partial/Moderate Assistance-helper does LESS THAN HALF the effort. [place] lifts, holds or supports trunk or limbs, but provides less than half the effort. 2-Substantial/Maximal Assistance-helper does MORE THAN HALF the effort. [place] lifts or holds trunk or limbs and provides more than half the effort. 8-Satoeduqz-twdmpc does ALL the effort. Patient does none of the effort to complete the activity. Or, the assistance of 2 or more helpers is required for the patient to complete the activity. If activity was not attempted, code reason: 7-Patient Refused. 9-Not Applicable-not attempted and the patient did not perform the activity before the current illness, exacerbation or injury. 10-Not Attempted due to Environmental Limitations-(lack of equipment, weather restraints, etc.). 88-Not Attempted due to Medical Conditions or Safety Concerns. Roll Left to Right (QC): 3 Sit to Lying (QC): 4 Sit to Stand (QC): 5 Chair/Zvr-zs-Lthva Xfer(QC): 3 Car Transfer (QC): 4 Gait Training Does the Patient Walk?: Yes Distance: 150' x2 Walk 10 feet (QC): 4 Walk 50 ft with 2 Turns(QC): 4 Walk 150 ft (QC): 4 Walking 10ft/uneven surface-QC: 3 Gait Persons Needed: 1 Gait Assistive Device: FWW Wheelchair Training Does the Pt Use a Wheelchair?: No Stair Training 1 Step (curb) (QC): 3 (mn assist for safety and balance. ) 4 Steps (QC): 88 12 Steps (QC): 88 Balance Picking up an Object (QC): 88 ADL-Treatment Eating (QC): 5 (Pt able to bring chopped diet to her mouth without assistance. ) Oral Hygiene (QC): 5 (based on acute tx this morning prior to pt transferring to ARU, pt required set up assistance at recliner. ) Shower/Bathe Self (QC): 4 (Sponge Bath: CGA during stand. Pt able to wash all parts, noted perseveration where pt required verbal cues to continue washing other parts.) Upper Body Dressing (QC): 3 (Pt donned/doffed hospital gown as a dross puller shirt, she required min A with pulling sleeves all the way up.) Lower Body Dressing (QC): 3 (Min A with clothing management. OT threaded catheter line through pants, then pt donned over BLEs. CGA during stand as pt managed clothing up.) On/Off Footwear (QC): 3 (Pt able to doff slipper socks and andre with increased time. Min A with managing sock all the way to her toes. ) Toileting Hygiene (QC): 4 (Pt denied completing task during session, based on clincial reasoning with dressing and bathing, pt would be able to complete hygiene and clothing management with CGA) Assessment/Plan Assessment and Plan Assess & Plan/Chief Complaint Assessment: HTN encephalopathy PAF? off Coumadin HTN OOC Memory loss Plan: Added BP meds Dr Rahman appreciated Tely IRF protocol (1) Hypertensive encephalopathy Status: Acute (2) Non-insulin dependent type 2 diabetes mellitus Status: Chronic (3) Essential (primary) hypertension Status: Chronic (4) CVA (cerebral vascular accident) Status: Acute (5) Hypothyroidism (6) GERD (gastroesophageal reflux disease) CARISSA PETERSON DO Jul 29, 2019 08:46
--- NOTE | 2019-07-29 09:41 | Speech Therapy Daily Note ---
Speech Daily Progress Note Subjective Date Seen by Provider: Jul 29, 2019 Time Seen by Provider: 00:30 Patient was alert and pleasant with ST session. Objective Patient completed simple memory tasks with 85% given minimal tasks. Assessment Assessment Current Status: Good Progress Treatment Plan Continue Plan of Care Speech Short Term Goals Short Term Goals Short Term Goals 1) Patient will complete memory tasks related to her daily needs at 90% or greater. 2) Patient will complete problem solving tasks related to her daily needs at 90% or greater. 3) Patient will complete safety awareness tasks related to her daily needs at 90% or greater. 4) Patient will complete executive function tasks related to her daily needs at 90% or greater. Speech Fpc Goals Steel Shot Header Operator Goals Patient will improve cognitive-communication necessary for safety and daily living tasks with minimal assist. Speech-Plan Patient/Family Goals Patient/Family Goals: Patient plans on returning home with her . Treatment Plan Speech Therapy Treatment Plan: Continue Plan of Care Frequency: 5 times per week Estimated Hrs Per Day: .5 hour per day Rehab Potential: Good Barriers to Learning: Patient's recent CVA Pt/Family Agrees to Plan: Yes Safety Risks/Education Teaching Recipient: Patient Teaching Methods: Demonstration, Discussion Response to Teaching: Verbalize Understanding, Return Demonstration Education Topics Provided: Patient safety within her room and communication of wants/needs Time Speech Therapy Time In: 08:30 Speech Therapy Time Out: 09:00 Total Billed Time: 30 Billed Treatment Time 1VINAYAK BETHANIA ST Jul 29, 2019 09:41
--- NOTE | 2019-07-29 10:39 | Occupational Ther Daily Note ---
OT Current Status-Daily Note Subjective Pt seen in bed post-MEDICAL BILLER. Pt denies pain, states slept well last night. Pt agrees to OT tx session with goals of sponge bath/ dressing. Mental Status/Objective Patient Orientation: Person, Place, Time, Situation Attachments: Oxygen (1L) ADL-Treatment Therapy Code Descriptions/Definitions Functional [place] Measure: 0=Not Assessed/NA 4=Minimal Assistance 1=Total Assistance 5=Supervision or Setup 2=Maximal Assistance 6=Modified [place] 3=Moderate Assistance 7=Complete IndependenceSCALE: Activities may be completed with or without assistive devices. 5-Wivrazberf-aouimzs completes the activity by him/herself with no assistance from a helper. 5-Set-up or Clean-up Assistance-helper sets up or cleans up; patient completes activity. Mode assists only prior to or following the activity. 4-Supervision or Touching Assistance-helper provides verbal cues and/or touching/steadying and/or contact guard assistance as patient completes activity. Assistance may be provided throughout the activity or intermittently. 3-Partial/Moderate Assistance-helper does LESS THAN HALF the effort. Mode lifts, holds or supports trunk or limbs, but provides less than half the effort. 2-Substantial/Maximal Assistance-helper does MORE THAN HALF the effort. Mode lifts or holds trunk or limbs and provides more than half the effort. 7-Qugutptqm-qmselz does ALL the effort. Patient does none of the effort to compl ete the activity. Or, the assistance of 2 or more helpers is required for the patient to complete the activity. If activity was not attempted, code reason: 7-Patient Refused. 9-Not Applicable-not attempted and the patient did not perform the activity before the current illness, exacerbation or injury. 10-Not Attempted due to Environmental Limitations-(lack of equipment, weather restraints, etc.). 88-Not Attempted due to Medical Conditions or Safety Concerns. Eating (QC): 6 Oral Hygiene (QC): 4 (SBA) Bathing Location: L Arm, R Arm, L Upper Leg, R Upper Leg, L Lower Leg (including foot), R Lower Leg (including foot), Chest, Abdomen, Buttocks, Perineal Area Shower/Bathe Self (QC): 4 (CGA in stance, completes EOB. Pt completes sit to stand to 2WW with SBA and completes all activities with min cues for continuation of task) Upper Body Dressing (QC): 5 (s/u) Lower Body Dressing (QC): 4 (SBA EOB while threading BLE, CGA/ SBA in stance. ) On/Off Footwear: 2 (max MARIE hose assist; sock donning SBA EOB) Toileting Hygiene (QC): 4 (SBA) Other Treatment Pt agrees to sponge bath, completes bed mob with SBA, EOB completes sponge bath. Requires cueing for sequencing/ completion of tasks. In stance, pt does not utilize walker and requires cues for use. Pt brushes teeth at sink in stance with SBA. Pt returns to recliner chair, educated on HEP and use of therabands in chair. Pt completes 3 ex (5 reps bilaterally) of exercises: bicep curls, back flies. Pt requires CGA in stance during these- good balance throughout. Pt returns to recliner, all needs met, chair alarm on. Call light in reach. Education OT Patient Education: Correct positioning, Exercise program, Home exercise program, Purpose of tx/functional activities, Safety issues, Transfer techniques Teaching Recipient: Patient Teaching Methods: Demonstration, Discussion Response to Teaching: Verbalize Understanding, Return Demonstration, Reinforcement Needed OT Custodial Goals Custodial Goals Time Frame: Aug 13, 2019 Eating (QC): 6 Oral Hygiene (QC): 6 Toileting Hygiene (QC): 6 Shower/Bathe Self (QC): 6 Upper Body Dressing (QC): 6 Lower Body Dressing (QC): 6 On/Off Footwear (QC): 6 Additional Goals: 1-Demonstrate ADL Tasks, 2-Verbalize Understanding, 3- ImproveStrength/Sujatha 1=Demonstrate adherence to instructed precautions during ADL tasks. 2=Patient will verbalize/demonstrate understanding of assistive devices/modifications for ADL. 3=Patient will improve strength/tolerance for activity to enable patient to perform ADL's. OT Education/Plan Problem List/Assessment Assessment: Decreased Activ Tolerance, Decreased Safety Aware, Edema (non pitting BLE), Impaired I ADL's, Impaired Self-Care Skills Discharge Recommendations Plan/Recommendations: Continue POC Therapy Discharge Recommendati: Home & Family, Post Acute OT Treatment Plan/Plan of Care Treatment,Training & Education: Yes Patient would benefit from OT for education, treatment and training to promote independence in ADL's, mobility, safety and/or upper extremity function for ADL's. Plan of Care: ADL Retraining, Functional Mobility, Group Exercise/Act as Ind, UE Funct Exercise/Act Treatment Duration: Aug 13, 2019 Frequency: At least 5 of 7 days/Wk (IRF) Estimated Hrs Per Day: 1.5 hours per day Agreement: Yes Rehab Potential: Good Time/GCodes Start Time: 09:00 Stop Time: 10:30 Total Time Billed (hr/min): 90 Billed Treatment Time 1, ADL 4 (60), EX 2 (30) = 90 MICHELLE ESQUEDA OTR Jul 29, 2019 10:39
--- NOTE | 2019-07-29 12:02 | Physical Therapy Daily Note ---
PT Daily Note-Current Subjective Pt sitting in recliner upon arrival. Pt agrees to PT. Pain Location: No Pain Reported Mental Status Patient Orientation: Person, Confused, Place Attachments: Oxygen (1L) Transfers SCALE: Activities may be completed with or without assistive devices. 8-Chzhqhwjij-xtitjqq completes the activity by him/herself with no assistance from a helper. 5-Set-up or Clean-up Assistance-helper sets up or cleans up; patient completes activity. [place] assists only prior to or following the activity. 4-Supervision or Touching Assistance-helper provides verbal cues and/or touching/steadying and/or contact guard assistance as patient completes activity. Assistance may be provided throughout the activity or intermittently. 3-Partial/Moderate Assistance-helper does LESS THAN HALF the effort. [place] lifts, holds or supports trunk or limbs, but provides less than half the effort. 2-Substantial/Maximal Assistance-helper does MORE THAN HALF the effort. [place] lifts or holds trunk or limbs and provides more than half the effort. 2-Vvodglxob-xkubbj does ALL the effort. Patient does none of the effort to complete the activity. Or, the assistance of 2 or more helpers is required for the patient to complete the activity. If activity was not attempted, code reason: 7-Patient Refused. 9-Not Applicable-not attempted and the patient did not perform the activity before the current illness, exacerbation or injury. 10-Not Attempted due to Environmental Limitations-(lack of equipment, weather restraints, etc.). 88-Not Attempted due to Medical Conditions or Safety Concerns. Sit to Stand (QC): 5 Toilet Transfer (QC): 5 Weight Bearing Right Lower Extremity: Right Full Weight Bearing Left Lower Extremity: Left Full Weight Bearing Gait Training Does the Patient Walk?: Yes Distance: 150' x2 Walk 10 feet (QC): 5 Walk 50 ft with 2 Turns(QC): 5 Walk 150 ft (QC): 5 Gait Persons Needed: 1 Gait Assistive Device: FWW BODY DESIGN CHECKER is at close SBA for safety. Wheelchair Training Does the Pt Use a Wheelchair?: No Exercises Seated Therapy Exercises: Ankle pumps, Long arc quads, Hip flexion, Kicking activity, Hip abd/add, Glut set Seated Reps: 15 NuStep Minutes: 10 NuStep Workload: 4 Treatments Pt transfers from recliner to standing. Pt uses restroom before leaving room for rest of Rx. Pt uses NuStep for 10m at WL 4 then takes RB before completing Seated EX. Pt ambulates in hallway before returning to room to rest at end of Rx. Pt has all needs met, call light in hand and chair alarm on. Assessment Current Status: Good Progress Pt still demonstrates moments of confusion, needing redirection for sequencing. PT Short Term Goals Short Term Goals Time Frame: Aug 02, 2019 Sit to lyin Lying to sitting on side of be: 4 Sit to stand: 4 Walk 150 feet: 4 PT Detention Goals Detention Goals PT Interior Decorator Goals Time Frame: Aug 11, 2019 Roll Left & Right (QC): 6 Sit to Lying (QC): 6 Lying-Sitting on Side/Bed(QC): 6 Sit to Stand (QC): 6 Chair/Whw-lv-Vjjan Xfer(QC): 6 Toilet Transfer (QC): 6 Car Transfer (QC): 6 Does the Patient Walk: Yes Walk 10 feet (QC): 6 Walk 50ft with 2 Turns (QC): 6 Walk 150 ft (QC): 6 Walking 10ft on Uneven Surface: 6 1 Step (curb) (QC): 6 4 Steps (QC): 6 12 Steps (QC): 9 Picking up an Object (QC): 4 Does the Pt use WC or Scooter?: No PT Plan Problem List Problem List: Activity Tolerance, Functional Strength, Safety, Balance Treatment/Plan Treatment Plan: Continue Plan of Care Treatment Plan: Bed Mobility, Education, Functional Activity Sujatha, Functional Strength, Group Therapy, Gait, Safety, Therapeutic Exercise, Transfers Treatment Duration: Aug 11, 2019 Frequency: At least 5 of 7 days/Wk (IRF) Estimated Hrs Per Day: 1.5 hours per day Patient and/or Family Agrees t: Yes Safety Risks/Education Patient Education: Gait Training, Transfer Techniques, Correct Positioning, Safety Issues Teaching Recipient: Patient Teaching Methods: Discussion Response to Teaching: Reinforcement Needed Time/GCodes Time In: 1045 Time Out: 1200 Total Billed Treatment Time: 75 Total Billed Treatment 1, GT (15m), FA x2 (25m) & EX x2 (35m) HERNAN KATZ BODY DESIGN CHECKER Jul 29, 2019 12:01
--- NOTE | 2019-07-29 13:18 | NUR ---
"RD ASSESSMENT PMHx: hypercholesterolemia; HTN; stroke; GERD; hiatal hernia; hypothyroidism; DM PT INTERACTION: Pt was awake and pleasant during nutrition assessment. Pt states current appetite is good. Note avg PO intake betwen 50-75% [id number], per chart review. Pt states following regular diet at home and has no issues with chewing/swallowing food. Pt states no recent issues with n/v/c/d at this time, and that her last BM was 07/28. Note pt currently on bowel regimen of colace BID; senna BID; and miralax BID, per chart review. Pt states no recent wt changes. Note unable to determine recent wt hx, per chart review. Pt states unsure of current DM management, stating that she normally doesn't check her blood glucose levels. Note unable to determine recent HbA1c, per chart review. ABNORMAL NUTRITION-RELATED LAB VALUES LOW: Pro 5.7 HIGH: BUN 21; cr 1.44; glu 120 Est. kcal needs: 1992-1021 kcal | 15-20 kcal/kg Est. Pro needs: 78-98 g Pro | 0.8-1.0 g Pro/kg PES STATEMENT: Inadequate oral intake (NI-2.1) related to loss of appetite as evidenced by pt interview | avg PO intake 50-75% INTERVENTION: Continue with current diet order of Regular diet. Pt may benefit from switching to consistent CHO diet if blood glucose levels become elevated. Pt may benefit from nutrition supplementation if PO intake declines. Will continue to follow and reassess as pt needs, intake, and status change. MONITOR/EVALUATE: PO Intake; Plan of Care; Hydration Status; Weight Status; Lab Values Nina Ulrich, , RD, LD"
--- NOTE | 2019-07-29 13:41 | NUR ---
CM/SS ADMISSION Patient was admitted from [facility] internally to ARU for Hypertensive Encephalopathy. Additional medical diagnoses, in part, are NIDDM, essential primary hypertension, CVA. EMR reflects activity tolerance and lack of balance. Prior to hospitalization, patient resided at home with her spouse, Alessio Lake. Her discharge plan is to return there as before, she desires to be as independent as possible. Prior to onset of this acute decline, she reports she was IADL, she ambulated independently and performed without any assistive devices at all. She was capable to drive, but they had gotten into the pattern that Alessio drove wherever they were going. She stated that she was capable to walk about for grocery shopping without difficulty and that she did all the "shopping", that Alessio did most all of the cooking at home. Patient does sleep in a regular recliner and has for approx 18-20 years. She has a small pet dog that sleeps with her as well, she shares that the dog has stayed by the recliner during her absence. DME: None. If DME is recommended, patient will need items prior to discharge. PCP: Dr. Nando Wynn MD, [facility] PHARM: [employer] [facility] [employer]. INSURANCE: Medicare, [employer] CONTACTS: Alessio Lake, spouse [address] [place] [address] Home land line, they have no cell phones in use. Nabila Lake, sis-in-law ( to Dr. Timmy Lake, DDS) [place], [place] [phone] Patient has two boys and 5 grandsons. Explained the process and purpose of the weekly team conference, patient verbalized understanding.
[2019-07-29 16:00] VITALS: BP 181/90
[2019-07-29] MEDS: ACETAMINOPHEN 500 MG TAB (TYLENOL) PO PRN ×2 (16:11→20:54)
[2019-07-29 16:40] VITALS: BP 180/80
[2019-07-29 17:27] VITALS: BP 178/83
[2019-07-29] MEDS: ENOXAPARIN 40 MG/0.4 ML (LOVENOX) SYR SC SCH (20:06)
[2019-07-30] MEDS: cloNIDine 0.1 MG (CATAPRES) TAB PO PRN ×2 (01:08→17:42)
[2019-07-30 01:15] VITALS: BP 191/95
[2019-07-30 05:22] VITALS: BP 172/90
[2019-07-30] MEDS: ACETAMINOPHEN 500 MG TAB (TYLENOL) PO PRN (05:22)
[2019-07-30] MEDS: SENNA W/DOCUSATE (SENOKOT S) TABLET PO SCH ×2 (08:26→21:53)
[2019-07-30] MEDS: polyethylene glycoL POWDER 17 GM (MIRALAX) PACK PO SCH ×2 (08:26→21:53)
[2019-07-30] MEDS: DOCUSATE SODIUM 100 MG (COLACE) CAP PO SCH ×2 (08:26→21:52)
--- NOTE | 2019-07-30 09:01 | PM&R Progress Note ---
Subjective HPI/CC On Admission Date Seen by Provider: Jul 30, 2019 Time Seen by Provider: 09:00 Subjective/Events-last exam Clonidine given last night for elevated BP Norvasc started at 5 MG, first dose this morning Telemetry maintained, normal sinus rhythm per Dr. Rahman. Checked meds and labs Reviewed therapy notes Conferred with scaffolding helper of Systems General: Fatigue Neurological: Weakness, Numbness, Incoordination Objective Exam Vital Signs Vital Signs Date Time Temp Pulse Resp B/P (MAP) Pulse Ox O2 Delivery O2 Flow Rate FiO2 07/30/19 19:00 73 07/30/19 16:30 36.6 16 176/76 (109) 97 Room Air 07/30/19 08:15 1.00 Capillary Refill : Less Than 3 Seconds General Appearance: No Apparent Distress, WD/WN, Chronically ill, Obese HEENT: PERRL/EOMI, Normal ENT Inspection, Pharynx Normal Neck: Non Tender, Supple Respiratory: Chest Non Tender, Lungs Clear, Normal Breath Sounds, No Accessory Muscle Use, No Respiratory Distress Cardiovascular: Regular Rate, Rhythm, No Edema, No Gallop, No JVD, No Murmur Gastrointestinal: Normal Bowel Sounds, No Organomegaly, No Pulsatile Mass, Non Tender, Soft Rectal: Deferred Back: Normal Inspection, No CVA Tenderness, No Vertebral Tenderness Extremity: Normal Capillary Refill, Normal Inspection, Normal Range of Motion, Non Tender, No Calf Tenderness Neurologic/Psychiatric: Alert, Oriented x3, direct support professional home health II-XII Norm as Tested, Abnormal Gait, Depressed Affect, Motor Weakness (generalized) Skin: Normal Color, Warm/Dry Results/Procedures Lab Patient resulted labs reviewed. FIM Transfers Therapy Code Descriptions/Definitions Functional [place] Measure: 0=Not Assessed/NA 4=Minimal Assistance 1=Total Assistance 5=Supervision or Setup 2=Maximal Assistance 6=Modified [place] 3=Moderate Assistance 7=Complete IndependenceSCALE: Activities may be completed with or without assistive devices. 6-Rwjkjkawwp-zmjjovp completes the activity by him/herself with no assistance from a helper. 5-Set-up or Clean-up Assistance-helper sets up or cleans up; patient completes activity. [place] assists only prior to or following the activity. 4-Supervision or Touching Assistance-helper provides verbal cues and/or touching/steadying and/or contact guard assistance as patient completes activity. Assistance may be provided throughout the activity or intermittently. 3-Partial/Moderate Assistance-helper does LESS THAN HALF the effort. [place] lifts, holds or supports trunk or limbs, but provides less than half the effort. 2-Substantial/Maximal Assistance-helper does MORE THAN HALF the effort. [place] lifts or holds trunk or limbs and provides more than half the effort. 3-Kghtiquct-pvjcrd does ALL the effort. Patient does none of the effort to comp lete the activity. Or, the assistance of 2 or more helpers is required for the patient to complete the activity. If activity was not attempted, code reason: 7-Patient Refused. 9-Not Applicable-not attempted and the patient did not perform the activity before the current illness, exacerbation or injury. 10-Not Attempted due to Environmental Limitations-(lack of equipment, weather restraints, etc.). 88-Not Attempted due to Medical Conditions or Safety Concerns. Roll Left to Right (QC): 3 Sit to Lying (QC): 4 Sit to Stand (QC): 5 Chair/Wla-ui-Cnmso Xfer(QC): 3 Car Transfer (QC): 4 Gait Training Does the Patient Walk?: Yes Distance: 150' x2 Walk 10 feet (QC): 5 Walk 50 ft with 2 Turns(QC): 5 Walk 150 ft (QC): 5 Walking 10ft/uneven surface-QC: 3 Gait Persons Needed: 1 Gait Assistive Device: FWW Wheelchair Training Does the Pt Use a Wheelchair?: No Stair Training 1 Step (curb) (QC): 3 (mn assist for safety and balance. ) 4 Steps (QC): 88 12 Steps (QC): 88 Balance Picking up an Object (QC): 88 ADL-Treatment Eating (QC): 6 Oral Hygiene (QC): 4 (SBA) Bathing Location: L Arm, R Arm, L Upper Leg, R Upper Leg, L Lower Leg (includi ng foot), R Lower Leg (including foot), Chest, Abdomen, Buttocks, Perineal Area Shower/Bathe Self (QC): 4 (CGA in stance, completes EOB. Pt completes sit to stand to 2WW with SBA and completes all activities with min cues for continua tion of task) Upper Body Dressing (QC): 5 (s/u) Lower Body Dressing (QC): 4 (SBA EOB while threading BLE, CGA/ SBA in stance. ) On/Off Footwear (QC): 2 (max MARIE hose assist; sock donning SBA EOB) Toileting Hygiene (QC): 4 (SBA) Assessment/Plan Assessment and Plan Assess & Plan/Chief Complaint Assessment: HTN encephalopathy PAF? off Coumadin HTN OOC Memory loss Plan: Added BP meds Dr Rahman appreciated Tely IRF protocol (1) Hypertensive encephalopathy Status: Acute (2) Non-insulin dependent type 2 diabetes mellitus Status: Chronic (3) Essential (primary) hypertension Status: Chronic (4) CVA (cerebral vascular accident) Status: Acute (5) Hypothyroidism (6) GERD (gastroesophageal reflux disease) CARISSA PETERSON DO Jul 30, 2019 09:01
--- NOTE | 2019-07-30 09:43 | Occupational Ther Daily Note ---
OT Current Status-Daily Note Subjective Pt was laying supine in bed, pt stated, she wasn't in pain. Later pt stated that her elbow hurt while getting out of bed. Pt agreeable to shower. Mental Status/Objective Patient Orientation: Person, Place, Situation Attachments: Oxygen, Telemetry ADL-Treatment Therapy Code Descriptions/Definitions Functional [place] Measure: 0=Not Assessed/NA 4=Minimal Assistance 1=Total Assistance 5=Supervision or Setup 2=Maximal Assistance 6=Modified [place] 3=Moderate Assistance 7=Complete IndependenceSCALE: Activities may be completed with or without assistive devices. 5-Rvzbknzaxu-ucodczb completes the activity by him/herself with no assistance from a helper. 5-Set-up or Clean-up Assistance-helper sets up or cleans up; patient completes activity. [place] assists only prior to or following the activity. 4-Supervision or Touching Assistance-helper provides verbal cues and/or touching/steadying and/or contact guard assistance as patient completes activity. Assistance may be provided throughout the activity or intermittently. 3-Partial/Moderate Assistance-helper does LESS THAN HALF the effort. [place] lifts, holds or supports trunk or limbs, but provides less than half the effort. 2-Substantial/Maximal Assistance-helper does MORE THAN HALF the effort. [place] lifts or holds trunk or limbs and provides more than half the effort. 7-Clbiupjil-adlowo does ALL the effort. Patient does none of the effort to complete the activity. Or, the assistance of 2 or more helpers is required for the patient to complete the activity. If activity was not attempted, code reason: 7-Patient Refused. 9-Not Applicable-not attempted and the patient did not perform the activity before the current illness, exacerbation or injury. 10-Not Attempted due to Environmental Limitations-(lack of equipment, weather restraints, etc.). 88-Not Attempted due to Medical Conditions or Safety Concerns. Bathing Location: L Arm, R Arm, L Upper Leg, R Upper Leg, Chest, Abdomen, Buttocks, Perineal Area Shower/Bathe Self (QC): 4 (SBA) Upper Body Dressing (QC): 5 (Set-up (completed sitting)) Lower Body Dressing (QC): 4 (SBA demonstrated good static standing balance.) On/Off Footwear: 2 (Max assist with MARIE hose, SBA while donning and doffing socks.) Toileting Hygiene (QC): 4 (SBA with bottom hygiene, independence with trinh hygiene. ) Toilet Transfer (QC): 4 (CGA, need cue for proper hand placement on grab bars. ) Other Treatment Pt was able to perform bed mobility using bedrail supine to EOB with SBA. Pt was able to sit to stand using 2ww then mobilized to bathroom to the toilet SBA. Refused to wear O2 while in the bathroom even with encouragement. Pt toilet and performed trinh care, need min cuing for proper hand placement on grab bars while standing up. Used 2ww walker to transfer from toilet to shower with SBA. Then performed cleansing in sit all upper extremities, lower extremities (in stance), trinh area, and bottom (in stance) she was then able to dry herself off. While drying off her 02 was 80%( no SOB noted), she was educated on the importance of wearing O2 while doing task, expressed understanding of the importance of 02 and started wearing O2 again; recover to 98% with in 30sec. Was able to don clothing. Transferred to recliner using 2ww with SBA. Call light left in reach. All need were met. Education OT Patient Education: Purpose of tx/functional activities, Safety issues, Transfer techniques Teaching Recipient: Patient Teaching Methods: Demonstration, Discussion Response to Teaching: Verbalize Understanding, Return Demonstration, Reinforcement Needed OT Senior Care Goals Senior Care Goals Time Frame: Aug 13, 2019 Eating (QC): 6 Oral Hygiene (QC): 6 Toileting Hygiene (QC): 6 Shower/Bathe Self (QC): 6 Upper Body Dressing (QC): 6 Lower Body Dressing (QC): 6 On/Off Footwear (QC): 6 Additional Goals: 1-Demonstrate ADL Tasks, 2-Verbalize Understanding, 3- ImproveStrength/Sujatha 1=Demonstrate adherence to instructed precautions during ADL tasks. 2=Patient will verbalize/demonstrate understanding of assistive devices/modifications for ADL. 3=Patient will improve strength/tolerance for activity to enable patient to perform ADL's. OT Education/Plan Problem List/Assessment Assessment: Decreased Activ Tolerance, Decreased Safety Aware, Impaired I ADL's, Impaired Self-Care Skills Discharge Recommendations Plan/Recommendations: Continue POC Therapy Discharge Recommendati: Post Acute OT Treatment Plan/Plan of Care Treatment,Training & Education: Yes Patient would benefit from OT for education, treatment and training to promote independence in ADL's, mobility, safety and/or upper extremity function for ADL's. Plan of Care: ADL Retraining, Functional Mobility, Group Exercise/Act as Ind, UE Funct Exercise/Act Treatment Duration: Aug 13, 2019 Frequency: At least 5 of 7 days/Wk (IRF) Estimated Hrs Per Day: 1.5 hours per day Agreement: Yes Rehab Potential: Good Time/GCodes Start Time: 08:00 Stop Time: 09:30 Total Time Billed (hr/min): 90 Billed Treatment Time 1, ADL 6 (90) KMB ALONSO/Josue Monroe OTR/MICHELLE PALM OTRenan Jul 30, 2019 09:43
[2019-07-30] MEDS: meTOproloL SUCCINATE 50 MG (TOPROL XL) TAB PO SCH (09:49)
[2019-07-30] MEDS: amLODIPine 5 MG (NORVASC) TAB PO SCH (09:49)
[2019-07-30] MEDS: ASPIRIN E.C. 81 MG (ECOTRIN) TAB PO SCH (09:49)
--- NOTE | 2019-07-30 10:40 | NUR ---
Pastoral care visit, pt shared of her membership at [facility].
--- NOTE | 2019-07-30 12:07 | Physical Therapy Daily Note ---
PT Daily Note-Current Subjective Pt sitting in recliner upon arrival. Pt agrees to PT. Pain Location: No Pain Reported Mental Status Patient Orientation: Person, Confused, Place Attachments: Oxygen (1L) Transfers SCALE: Activities may be completed with or without assistive devices. 0-Jysckiqycl-mexralc completes the activity by him/herself with no assistance from a helper. 5-Set-up or Clean-up Assistance-helper sets up or cleans up; patient completes activity. [place] assists only prior to or following the activity. 4-Supervision or Touching Assistance-helper provides verbal cues and/or touching/steadying and/or contact guard assistance as patient completes activity. Assistance may be provided throughout the activity or intermittently. 3-Partial/Moderate Assistance-helper does LESS THAN HALF the effort. [place] lifts, holds or supports trunk or limbs, but provides less than half the effort. 2-Substantial/Maximal Assistance-helper does MORE THAN HALF the effort. [place] lifts or holds trunk or limbs and provides more than half the effort. 9-Yfxutsvns-hocwcb does ALL the effort. Patient does none of the effort to complete the activity. Or, the assistance of 2 or more helpers is required for the patient to complete the activity. If activity was not attempted, code reason: 7-Patient Refused. 9-Not Applicable-not attempted and the patient did not perform the activity before the current illness, exacerbation or injury. 10-Not Attempted due to Environmental Limitations-(lack of equipment, weather restraints, etc.). 88-Not Attempted due to Medical Conditions or Safety Concerns. Sit to Stand (QC): 5 Toilet Transfer (QC): 5 Weight Bearing Right Lower Extremity: Right Full Weight Bearing Left Lower Extremity: Left Full Weight Bearing Gait Training Does the Patient Walk?: Yes Distance: 150' x2 Walk 10 feet (QC): 5 Walk 50 ft with 2 Turns(QC): 5 Walk 150 ft (QC): 5 Gait Persons Needed: 1 Gait Assistive Device: FWW Wheelchair Training Does the Pt Use a Wheelchair?: No Stair Training Stair Training: Handrails/: 2 handrails #of Steps: 8 1 Step (curb) (QC): 4 4 Steps (QC): 4 Stairs: Pattern: Step to Exercises Seated Therapy Exercises: Ankle pumps, Long arc quads, Hip flexion, Kicking activity, Hip abd/add Seated Reps: 15 NuStep Minutes: 15 NuStep Workload: 4 Treatments Pt transfers from recliner to standing. Pt uses restroom before leaving room for rest of Rx. Pt uses NuStep for 15m at WL 4 followed by Seated Ex. Pt ambulates in hallway before resting in chair in Therapy Commons to visit with family. Pt has all needs met. Assessment Current Status: Good Progress Pt is improving with strength and activity tolerance for improved transfers and mobility. Pt still demonstrates moments of confusion. PT Short Term Goals Short Term Goals Time Frame: Aug 02, 2019 Sit to lyin Lying to sitting on side of be: 4 Sit to stand: 4 Walk 150 feet: 4 PT Food Service Technician Goals Food Service Technician Goals PT Food Service Technician Goals Time Frame: Aug 11, 2019 Roll Left & Right (QC): 6 Sit to Lying (QC): 6 Lying-Sitting on Side/Bed(QC): 6 Sit to Stand (QC): 6 Chair/Qqn-ir-Hxzqx Xfer(QC): 6 Toilet Transfer (QC): 6 Car Transfer (QC): 6 Does the Patient Walk: Yes Walk 10 feet (QC): 6 Walk 50ft with 2 Turns (QC): 6 Walk 150 ft (QC): 6 Walking 10ft on Uneven Surface: 6 1 Step (curb) (QC): 6 4 Steps (QC): 6 12 Steps (QC): 9 Picking up an Object (QC): 4 Does the Pt use WC or Scooter?: No PT Plan Problem List Problem List: Activity Tolerance, Functional Strength, Safety, Gait Treatment/Plan Treatment Plan: Continue Plan of Care Treatment Plan: Bed Mobility, Education, Functional Activity Sujatha, Functional Strength, Group Therapy, Gait, Safety, Therapeutic Exercise, Transfers Treatment Duration: Aug 11, 2019 Frequency: At least 5 of 7 days/Wk (IRF) Estimated Hrs Per Day: 1.5 hours per day Patient and/or Family Agrees t: Yes Safety Risks/Education Patient Education: Gait Training, Transfer Techniques, Correct Positioning, Safety Issues Teaching Recipient: Patient Teaching Methods: Discussion Response to Teaching: Verbalize Understanding Time/GCodes Time In: 1030 Time Out: 1145 Total Billed Treatment Time: 75 Total Billed Treatment 1, GT (15m), FA x2 (30m) & EX x2 (30m) HERNAN AKTZ LABOR LAW PROFESSOR Jul 30, 2019 12:07
--- NOTE | 2019-07-30 13:30 | Speech Therapy Daily Note ---
Speech Daily Progress Note Subjective Date Seen by Provider: Jul 30, 2019 Time Seen by Provider: 00:30 Patient was alert and actively participated in activities. Objective Patient participated in memory task games and conversation. Assessment Assessment Current Status: Good Progress Treatment Plan Continue Plan of Care Speech Short Term Goals Short Term Goals Short Term Goals 1) Patient will complete memory tasks related to her daily needs at 90% or greater. 2) Patient will complete problem solving tasks related to her daily needs at 90% or greater. 3) Patient will complete safety awareness tasks related to her daily needs at 90% or greater. 4) Patient will complete executive function tasks related to her daily needs at 90% or greater. Speech Retirement Goals Retinal Angiographer Goals Patient will improve cognitive-communication necessary for safety and daily living tasks with minimal assist. Speech-Plan Patient/Family Goals Patient/Family Goals: Patient will return home with her and return back to her daily activities, independently. Treatment Plan Speech Therapy Treatment Plan: Continue Plan of Care Treatment Duration: Jul 28, 2019 Frequency: 5 times per week Estimated Hrs Per Day: .5 hour per day Rehab Potential: Good Pt/Family Agrees to Plan: Yes Safety Risks/Education Teaching Recipient: Patient Teaching Methods: Demonstration, Discussion Response to Teaching: Verbalize Understanding, Return Demonstration Education Topics Provided: Patient received education regarding safety based upon why she was receiving services. Time Speech Therapy Time In: 10:00 Speech Therapy Time Out: 10:30 Total Billed Time: 30 Billed Treatment Time [address] Jul 30, 2019 13:30
[2019-07-30 16:30] VITALS: BP 176/76
[2019-07-30] MEDS: ENOXAPARIN 40 MG/0.4 ML (LOVENOX) SYR SC SCH (21:12)
[2019-07-31] MEDS: ACETAMINOPHEN 500 MG TAB (TYLENOL) PO PRN ×2 (00:50→23:18)
[2019-07-31 06:00] VITALS: BP 166/77
[2019-07-31] MEDS: polyethylene glycoL POWDER 17 GM (MIRALAX) PACK PO SCH ×2 (08:26→19:42)
[2019-07-31] MEDS: DOCUSATE SODIUM 100 MG (COLACE) CAP PO SCH ×2 (08:26→19:42)
[2019-07-31] MEDS: ASPIRIN E.C. 81 MG (ECOTRIN) TAB PO SCH (08:26)
[2019-07-31] MEDS: SENNA W/DOCUSATE (SENOKOT S) TABLET PO SCH ×2 (08:26→19:42)
[2019-07-31] MEDS: meTOproloL SUCCINATE 50 MG (TOPROL XL) TAB PO SCH (08:28)
[2019-07-31] MEDS: amLODIPine 5 MG (NORVASC) TAB PO SCH (08:28)
--- NOTE | 2019-07-31 11:05 | PM&R Progress Note ---
Subjective HPI/CC On Admission Date Seen by Provider: Jul 31, 2019 Time Seen by Provider: 11:15 Subjective/Events-last exam Clonidine prn for elevated BP Norvasc started at 5 MG, first dose yesterday and doing well so will start Hydralazine 25mg PO BID first this pm Telemetry maintained, normal sinus rhythm per Dr. Rahman. Doing well overall O2 maintained at night no longer needing it during the day Checked meds and labs Reviewed therapy notes Conferred with guide cruise of Systems General: Fatigue Objective Exam Vital Signs Vital Signs Date Time Temp Pulse Resp B/P (MAP) Pulse Ox O2 Delivery O2 Flow Rate FiO2 07/31/19 12:40 68 07/31/19 09:00 Nasal Cannula 1.00 07/31/19 06:00 37.0 20 166/77 (106) 94 Capillary Refill : Less Than 3 Seconds General Appearance: No Apparent Distress, WD/WN, Chronically ill, Obese HEENT: PERRL/EOMI, Normal ENT Inspection, Pharynx Normal Neck: Non Tender, Supple Respiratory: Chest Non Tender, Lungs Clear, Normal Breath Sounds, No Accessory Muscle Use, No Respiratory Distress Cardiovascular: Regular Rate, Rhythm, No Edema, No Gallop, No JVD, No Murmur Gastrointestinal: Normal Bowel Sounds, No Organomegaly, No Pulsatile Mass, Non Tender, Soft Rectal: Deferred Back: Normal Inspection, No CVA Tenderness, No Vertebral Tenderness Extremity: Normal Capillary Refill, Normal Inspection, Normal Range of Motion, Non Tender, No Calf Tenderness Neurologic/Psychiatric: Alert, Oriented x3, solder making laborer II-XII Norm as Tested, Abnormal Gait, Depressed Affect, Motor Weakness (generalized) Skin: Normal Color, Warm/Dry Results/Procedures Lab Patient resulted labs reviewed. FIM Transfers Therapy Code Descriptions/Definitions Functional [place] Measure: 0=Not Assessed/NA 4=Minimal Assistance 1=Total Assistance 5=Supervision or Setup 2=Maximal Assistance 6=Modified [place] 3=Moderate Assistance 7=Complete IndependenceSCALE: Activities may be completed with or without assistive devices. 3-Ficmrablhh-bokzefy completes the activity by him/herself with no assistance from a helper. 5-Set-up or Clean-up Assistance-helper sets up or cleans up; patient completes activity. [place] assists only prior to or following the activity. 4-Supervision or Touching Assistance-helper provides verbal cues and/or touching/steadying and/or contact guard assistance as patient completes activity. Assistance may be provided throughout the activity or intermittently. 3-Partial/Moderate Assistance-helper does LESS THAN HALF the effort. [place] lifts, holds or supports trunk or limbs, but provides less than half the effort. 2-Substantial/Maximal Assistance-helper does MORE THAN HALF the effort. [place] lifts or holds trunk or limbs and provides more than half the effort. 8-Huyjxvaqs-iaxqrs does ALL the effort. Patient does none of the effort to complete the activity. Or, the assistance of 2 or more helpers is required for the patient to complete the activity. If activity was not attempted, code reason: 7-Patient Refused. 9-Not Applicable-not attempted and the patient did not perform the activity before the current illness, exacerbation or injury. 10-Not Attempted due to Environmental Limitations-(lack of equipment, weather restraints, etc.). 88-Not Attempted due to Medical Conditions or Safety Concerns. Roll Left to Right (QC): 3 Sit to Lying (QC): 4 Sit to Stand (QC): 5 Chair/Akd-ix-Lqgay Xfer(QC): 3 Car Transfer (QC): 4 Gait Training Does the Patient Walk?: Yes Distance: 150' x2 Walk 10 feet (QC): 5 Walk 50 ft with 2 Turns(QC): 5 Walk 150 ft (QC): 5 Walking 10ft/uneven surface-QC: 3 Gait Persons Needed: 1 Gait Assistive Device: FWW Wheelchair Training Does the Pt Use a Wheelchair?: No Stair Training Stair Training: Handrails/: 2 handrails #of Steps: 8 1 Step (curb) (QC): 4 4 Steps (QC): 4 12 Steps (QC): 88 Stairs: Pattern: Step to Balance Picking up an Object (QC): 88 ADL-Treatment Eating (QC): 6 Oral Hygiene (QC): 4 (SBA) Bathing Location: L Arm, R Arm, L Upper Leg, R Upper Leg, Chest, Abdomen, Buttocks, Perineal Area Shower/Bathe Self (QC): 4 (SBA) Upper Body Dressing (QC): 5 (Set-up (completed sitting)) Lower Body Dressing (QC): 4 (SBA demonstrated good static standing balance.) On/Off Footwear (QC): 2 (Max assist with MARIE hose, SBA while donning and doffing socks.) Toileting Hygiene (QC): 4 (SBA with bottom hygiene, independence with trinh hygiene. ) Toilet Transfer (QC): 4 (CGA, need cue for proper hand placement on grab bars. ) Assessment/Plan Assessment and Plan Assess & Plan/Chief Complaint Assessment: HTN encephalopathy PAF? off Coumadin HTN OOC Memory loss Hypoxia at night? Plan: Adding BP meds Dr Rahman appreciated Tely IRF protocol Wean O2 (1) Hypertensive encephalopathy Status: Acute (2) Non-insulin dependent type 2 diabetes mellitus Status: Chronic (3) Essential (primary) hypertension Status: Chronic (4) CVA (cerebral vascular accident) Status: Acute (5) Hypothyroidism (6) GERD (gastroesophageal reflux disease) CARISSA PETERSON DO Jul 31, 2019 11:05
--- NOTE | 2019-07-31 11:15 | NUR ---
Vania is a very pleasant 73 yo female currently present on ARU due to hypertensive encephalopathy. Her blood pressures continue to remain elevated but this is being monitored closely by Dr. John and Dr. Rahman. She currently in on room air, she was able to ambulate over 300 ft with therapy (CGA with rolling walker) on room air and managed to maintain O2 saturations above 98%. She is cont. of bowel and bladder, last BM was noted to be this morning. Telly remains in place at this time. Dr. John present on unit and rounded, no concerns voiced at this time. This nurse will continue to monitor patient throughout the day.
--- NOTE | 2019-07-31 12:14 | Physical Therapy Daily Note ---
PT Daily Note-Current Subjective Pt agreeable to PT session. states she is looking forward to getting up and walking today Pain Numeric Pain Scale: 2 Comment: L upper trap "irritating" Appearance Upon arrival, pt sitting up in recliner awake and alert. At end of session, pt sitting up in recliner with call light, phone and bedside table within reach Mental Status Patient Orientation: Person, Place, Time, Eyes Open, Situation Attachments: Saline Lock Transfers SCALE: Activities may be completed with or without assistive devices. 2-Cwrbmajeoh-rfnpfrt completes the activity by him/herself with no assistance from a helper. 5-Set-up or Clean-up Assistance-helper sets up or cleans up; patient completes activity. [place] assists only prior to or following the activity. 4-Supervision or Touching Assistance-helper provides verbal cues and/or touching/steadying and/or contact guard assistance as patient completes activity. Assistance may be provided throughout the activity or intermittently. 3-Partial/Moderate Assistance-helper does LESS THAN HALF the effort. [place] lifts, holds or supports trunk or limbs, but provides less than half the effort. 2-Substantial/Maximal Assistance-helper does MORE THAN HALF the effort. [place] lifts or holds trunk or limbs and provides more than half the effort. 4-Takqalrtx-exmddh does ALL the effort. Patient does none of the effort to complete the activity. Or, the assistance of 2 or more helpers is required for the patient to complete the activity. If activity was not attempted, code reason: 7-Patient Refused. 9-Not Applicable-not attempted and the patient did not perform the activity before the current illness, exacerbation or injury. 10-Not Attempted due to Environmental Limitations-(lack of equipment, weather restraints, etc.). 88-Not Attempted due to Medical Conditions or Safety Concerns. Sit to Stand (QC): 5 Toilet Transfer (QC): 5 Weight Bearing Right Lower Extremity: Right Full Weight Bearing Left Lower Extremity: Left Full Weight Bearing Gait Training Does the Patient Walk?: Yes Distance: 426 Walk 10 feet (QC): 4 Walk 50 ft with 2 Turns(QC): 4 Walk 150 ft (QC): 4 Gait Persons Needed: 1 Gait Assistive Device: FWW slow to fair pace, on room air with SPO2 remaining 98% but decreased to 90% upon sitting directly after gait distance, improved to 95% within 3 minutes with skilled inst in breathing techniques (notified nursing) Treatments education, safety, breathing techniques, transfers, gait, activity tolerance, functional mobility PT Short Term Goals Short Term Goals Time Frame: Aug 02, 2019 Sit to lyin Lying to sitting on side of be: 4 Sit to stand: 4 Walk 150 feet: 4 PT Penitentiary Goals Penitentiary Goals PT Adjunct Trainer Goals Time Frame: Aug 11, 2019 Roll Left & Right (QC): 6 Sit to Lying (QC): 6 Lying-Sitting on Side/Bed(QC): 6 Sit to Stand (QC): 6 Chair/Pba-qp-[place]yk[place] Xfer(QC): 6 Toilet Transfer (QC): 6 Car Transfer (QC): 6 Does the Patient Walk: Yes Walk 10 feet (QC): 6 Walk 50ft with 2 Turns (QC): 6 Walk 150 ft (QC): 6 Walking 10ft on Uneven Surface: 6 1 Step (curb) (QC): 6 4 Steps (QC): 6 12 Steps (QC): 9 Picking up an Object (QC): 4 Does the Pt use WC or Scooter?: No PT Plan Treatment/Plan Treatment Plan: Continue Plan of Care Treatment Plan: Bed Mobility, Education, Functional Activity Sujatha, Functional Strength, Group Therapy, Gait, Safety, Therapeutic Exercise, Transfers Treatment Duration: Aug 11, 2019 Frequency: At least 5 of 7 days/Wk (IRF) Estimated Hrs Per Day: 1.5 hours per day Patient and/or Family Agrees t: Yes Safety Risks/Education Patient Education: Gait Training, Transfer Techniques, Safety Issues Teaching Recipient: Patient Teaching Methods: Demonstration, Discussion Response to Teaching: Verbalize Understanding, Return Demonstration, Reinforcement Needed Time/GCodes Time In: 1001 Time Out: 1025 Total Billed Treatment Time: 24 Total Billed Treatment 1 visit, GT x2 units GABRIELE VELASCO VARNISHING UNIT OPERATOR Jul 31, 2019 12:14
[2019-07-31 16:00] VITALS: BP 160/76
[2019-07-31] MEDS: hydrALAZINE (APRESOLINE) 25 MG TAB PO SCH ×2 (17:53→20:12)
[2019-07-31 18:30] VITALS: BP 159/83
[2019-07-31 18:31] VITALS: BP 160/76
[2019-07-31] MEDS: ENOXAPARIN 40 MG/0.4 ML (LOVENOX) SYR SC SCH (20:12)
[2019-08-01] MEDS: ACETAMINOPHEN 500 MG TAB (TYLENOL) PO PRN (05:14)
[2019-08-01 06:07] VITALS: BP 176/82
[2019-08-01] MEDS: cloNIDine 0.1 MG (CATAPRES) TAB PO PRN (06:37)
[2019-08-01] MEDS: polyethylene glycoL POWDER 17 GM (MIRALAX) PACK PO SCH ×2 (09:00→19:37)
[2019-08-01 09:38] VITALS: BP 146/71
[2019-08-01] MEDS: hydrALAZINE (APRESOLINE) 25 MG TAB PO SCH ×2 (09:40→20:06)
[2019-08-01] MEDS: amLODIPine 5 MG (NORVASC) TAB PO SCH (09:40)
[2019-08-01] MEDS: ASPIRIN E.C. 81 MG (ECOTRIN) TAB PO SCH (09:40)
[2019-08-01] MEDS: SENNA W/DOCUSATE (SENOKOT S) TABLET PO SCH ×2 (09:40→19:37)
[2019-08-01] MEDS: meTOproloL SUCCINATE 50 MG (TOPROL XL) TAB PO SCH (09:41)
[2019-08-01] MEDS: DOCUSATE SODIUM 100 MG (COLACE) CAP PO SCH ×2 (09:41→19:37)
--- NOTE | 2019-08-01 12:15 | PM&R Progress Note ---
Subjective HPI/CC On Admission Date Seen by Provider: Aug 01, 2019 Time Seen by Provider: 12:15 Subjective/Events-last exam Clonidine prn for elevated BP and was given 1 dose this morning Norvasc started at 5 MG, first dose 2 days ago and doing well so will start Hydralazine 25mg PO BID first yesterday Telemetry maintained, normal sinus rhythm per Dr. Rahman. Doing well overall O2 maintained at night no longer needing it during the day Impulsive at times Checked meds and labs Reviewed therapy notes Conferred with liquified natural gas technician of Systems General: Fatigue Neurological: Weakness Objective Exam Vital Signs Vital Signs Date Time Temp Pulse Resp B/P (MAP) Pulse Ox O2 Delivery O2 Flow Rate FiO2 08/01/19 19:00 81 08/01/19 18:24 36.6 18 158/85 (109) 92 Room Air 08/01/19 15:08 1.00 Capillary Refill : Less Than 3 Seconds General Appearance: No Apparent Distress, WD/WN, Chronically ill, Obese HEENT: PERRL/EOMI, Normal ENT Inspection, Pharynx Normal Neck: Non Tender, Supple Respiratory: Chest Non Tender, Lungs Clear, Normal Breath Sounds, No Accessory Muscle Use, No Respiratory Distress Cardiovascular: Regular Rate, Rhythm, No Edema, No Gallop, No JVD, No Murmur Gastrointestinal: Normal Bowel Sounds, No Organomegaly, No Pulsatile Mass, Non Tender, Soft Rectal: Deferred Back: Normal Inspection, No CVA Tenderness, No Vertebral Tenderness Extremity: Normal Capillary Refill, Normal Inspection, Normal Range of Motion, Non Tender, No Calf Tenderness Neurologic/Psychiatric: Alert, Oriented x3, form tamper operator II-XII Norm as Tested, Abnormal Gait, Depressed Affect, Motor Weakness (generalized) Skin: Normal Color, Warm/Dry Results/Procedures Lab Patient resulted labs reviewed. FIM Transfers Therapy Code Descriptions/Definitions Functional [place] Measure: 0=Not Assessed/NA 4=Minimal Assistance 1=Total Assistance 5=Supervision or Setup 2=Maximal Assistance 6=Modified [place] 3=Moderate Assistance 7=Complete IndependenceSCALE: Activities may be completed with or without assistive devices. 1-Uxmlsndlkx-rfomkzw completes the activity by him/herself with no assistance from a helper. 5-Set-up or Clean-up Assistance-helper sets up or cleans up; patient completes activity. [place] assists only prior to or following the activity. 4-Supervision or Touching Assistance-helper provides verbal cues and/or suzette olimpia/steadying and/or contact guard assistance as patient completes activity. Assistance may be provided throughout the activity or intermittently. 3-Partial/Moderate Assistance-helper does LESS THAN HALF the effort. [place] lifts, holds or supports trunk or limbs, but provides less than half the effort. 2-Substantial/Maximal Assistance-helper does MORE THAN HALF the effort. [place] lifts or holds trunk or limbs and provides more than half the effort. 6-Mukylltvp-msrmuo does ALL the effort. Patient does none of the effort to complete the activity. Or, the assistance of 2 or more helpers is required for the patient to complete the activity. If activity was not attempted, code reason: 7-Patient Refused. 9-Not Applicable-not attempted and the patient did not perform the activity before the current illness, exacerbation or injury. 10-Not Attempted due to Environmental Limitations-(lack of equipment, weather restraints, etc.). 88-Not Attempted due to Medical Conditions or Safety Concerns. Roll Left to Right (QC): 3 Sit to Lying (QC): 4 Sit to Stand (QC): 5 Chair/Wsu-bd-Vcpsm Xfer(QC): 3 Car Transfer (QC): 4 Gait Training Does the Patient Walk?: Yes Distance: 426 Walk 10 feet (QC): 4 Walk 50 ft with 2 Turns(QC): 4 Walk 150 ft (QC): 4 Walking 10ft/uneven surface-QC: 3 Gait Persons Needed: 1 Gait Assistive Device: FWW Wheelchair Training Does the Pt Use a Wheelchair?: No Stair Training Stair Training: Handrails/: 2 handrails #of Steps: 8 1 Step (curb) (QC): 4 4 Steps (QC): 4 12 Steps (QC): 88 Stairs: Pattern: Step to Balance Picking up an Object (QC): 88 ADL-Treatment Eating (QC): 6 Oral Hygiene (QC): 4 (SBA) Bathing Location: L Arm, R Arm, L Upper Leg, R Upper Leg, Chest, Abdomen, Buttocks, Perineal Area Shower/Bathe Self (QC): 4 (SBA) Upper Body Dressing (QC): 5 (Set-up (completed sitting)) Lower Body Dressing (QC): 4 (SBA demonstrated good static standing balance.) On/Off Footwear (QC): 2 (Max assist with MARIE hose, SBA while donning and doffing socks.) Toileting Hygiene (QC): 4 (SBA with bottom hygiene, independence with trinh hygiene. ) Toilet Transfer (QC): 4 (CGA, need cue for proper hand placement on grab bars. ) Assessment/Plan Assessment and Plan Assess & Plan/Chief Complaint Assessment: HTN encephalopathy PAF? off Coumadin HTN OOC improving with more meds Memory loss Hypoxia at night? Plan: Adding BP meds Dr Rahman appreciated Tely IRF protocol Wean O2 Hydralazine BID along with Norvasc (1) Hypertensive encephalopathy Status: Acute (2) Non-insulin dependent type 2 diabetes mellitus Status: Chronic (3) Essential (primary) hypertension Status: Chronic (4) CVA (cerebral vascular accident) Status: Acute (5) Hypothyroidism (6) GERD (gastroesophageal reflux disease) CARISSA PETERSON DO Aug 01, 2019 12:15
[2019-08-01 18:24] VITALS: BP 158/85
[2019-08-01] MEDS: ENOXAPARIN 40 MG/0.4 ML (LOVENOX) SYR SC SCH (20:06)
[2019-08-02] MEDS: ACETAMINOPHEN 500 MG TAB (TYLENOL) PO PRN (02:39)
[2019-08-02 05:49] VITALS: BP 160/81
[2019-08-02 07:28] LABS: BASOPHILS % (AUTO) 0 % (0-10); EOSINOPHILS # (AUTO) 0.2 10^3/uL (0.0-0.3); EOSINOPHILS % (AUTO) 2 % (0-10); HEMATOCRIT 42 % (35-52); HEMOGLOBIN 13.2 G/DL (11.5-16.0); LYMPHOCYTES # (AUTO) 1.9 X 10^3 (1.0-4.0); LYMPHOCYTES % (AUTO) 24 % (12-44); MEAN CORPUSCULAR HEMOGLOBIN 30 PG (25-34); MEAN CORPUSCULAR HGB CONC 31 G/DL (32-36); MEAN CORPUSCULAR VOLUME 94 FL (80-99); MEAN PLATELET VOLUME 10.4 FL (7.4-10.4); MONOCYTES # (AUTO) 0.8 X 10^3 (0.0-1.0); MONOCYTES % (AUTO) 10 % (0-12); NEUTROPHILS % (AUTO) 63 % (42-75); PLATELET COUNT 283 10^3/uL (130-400); RED CELL DISTRIBUTION WIDTH 14.3 % (10.0-14.5); WHITE BLOOD COUNT 7.9 10^3/uL (4.3-11.0)
[2019-08-02 07:49] LABS: ALBUMIN 3.5 GM/DL (3.2-4.5); BILIRUBIN,TOTAL 0.5 MG/DL (0.1-1.0); CALCIUM 9.8 MG/DL (8.5-10.1); CREATININE SERUM 1.38 MG/DL (0.60-1.30)
--- NOTE | 2019-08-02 08:03 | Physical Therapy Daily Note ---
PT Daily Note-Current Subjective Pt agreeable to PT session. Pain Numeric Pain Scale: 0-No Pain Appearance Pt in bathroom upon arrival, up and washing hands. Pt requesting and assisted dressing, very slow min A with bra, max A with socks and shoes. Pt again requesting and was assisted to restroom. Pt sitting up in recliner with chair alarm activated, call light, phone and bedside table within reach, ST present Mental Status Patient Orientation: Person, Place, Time, Eyes Open, Situation Attachments: Saline Lock, Oxygen (at night and daytime naps per nsg) Transfers SCALE: Activities may be completed with or without assistive devices. 0-Noyztchbuy-bizumuh completes the activity by him/herself with no assistance from a helper. 5-Set-up or Clean-up Assistance-helper sets up or cleans up; patient completes activity. [place] assists only prior to or following the activity. 4-Supervision or Touching Assistance-helper provides verbal cues and/or to uching/steadying and/or contact guard assistance as patient completes activity. Assistance may be provided throughout the activity or intermittently. 3-Partial/Moderate Assistance-helper does LESS THAN HALF the effort. [place] lifts, holds or supports trunk or limbs, but provides less than half the effort. 2-Substantial/Maximal Assistance-helper does MORE THAN HALF the effort. [place] lifts or holds trunk or limbs and provides more than half the effort. 1-Ookmewpbs-flqtpg does ALL the effort. Patient does none of the effort to complete the activity. Or, the assistance of 2 or more helpers is required for the patient to complete the activity. If activity was not attempted, code reason: 7-Patient Refused. 9-Not Applicable-not attempted and the patient did not perform the activity before the current illness, exacerbation or injury. 10-Not Attempted due to Environmental Limitations-(lack of equipment, weather restraints, etc.). 88-Not Attempted due to Medical Conditions or Safety Concerns. Sit to Stand (QC): 4 (occasionally requiring skilled verb inst for hand placement and technique for safety) Toilet Transfer (QC): 5 (use of grab bars. Set up for trinh care) Weight Bearing Right Lower Extremity: Right Full Weight Bearing Left Lower Extremity: Left Full Weight Bearing Gait Training Does the Patient Walk?: Yes Walk 10 feet (QC): 5 Walk 50 ft with 2 Turns(QC): 4 Walk 150 ft (QC): 4 Gait Persons Needed: 1 Gait Assistive Device: FWW slow pace, slight path deviation, decreased step height and length Exercises Seated Therapy Exercises: Ankle pumps (25 with 2# ankle wts), Sit to stand (7), Long arc quads (with 2# ankle wts x15), Hip flexion (10 with 2# ankle wts), Kicking activity (5 min with 2# ankle wts), Hip abd/add (10 simultaneously wtih 2 # ankle wts) Standing: Retro gait (60 ft no UE support, 60' fwd no UE support), Side steps (60 no UE support), Weight shifts (25 no UE support) Treatments education, safety, toileting, trinh care, transfers, gait, balance, strength, activity tolerance, functional mobility Assessment Current Status: Good Progress PT Short Term Goals Short Term Goals Time Frame: Aug 02, 2019 Sit to lyin Lying to sitting on side of be: 4 Sit to stand: 4 Walk 150 feet: 4 PT Shelter Goals [place] Goals PT [place] Goals Time Frame: Aug 11, 2019 Roll Left & Right (QC): 6 Sit to Lying (QC): 6 Lying-Sitting on Side/Bed(QC): 6 Sit to Stand (QC): 6 Chair/Dzf-qc-Kyrjb Xfer(QC): 6 Toilet Transfer (QC): 6 Car Transfer (QC): 6 Does the Patient Walk: Yes Walk 10 feet (QC): 6 Walk 50ft with 2 Turns (QC): 6 Walk 150 ft (QC): 6 Walking 10ft on Uneven Surface: 6 1 Step (curb) (QC): 6 4 Steps (QC): 6 12 Steps (QC): 9 Picking up an Object (QC): 4 Does the Pt use WC or Scooter?: No PT Plan Treatment/Plan Treatment Plan: Continue Plan of Care Treatment Plan: Bed Mobility, Education, Functional Activity Sujatha, Functional Strength, Group Therapy, Gait, Safety, Therapeutic Exercise, Transfers Treatment Duration: Aug 11, 2019 Frequency: At least 5 of 7 days/Wk (IRF) Estimated Hrs Per Day: 1.5 hours per day Patient and/or Family Agrees t: Yes Safety Risks/Education Patient Education: Gait Training, Transfer Techniques, Safety Issues Teaching Recipient: Patient Teaching Methods: Demonstration, Discussion Response to Teaching: Verbalize Understanding, Return Demonstration Time/GCodes Time In: 752 Time Out: 900 Total Billed Treatment Time: 68 Total Billed Treatment 1 visit, GT x25 min, EX x15 min, NM x15 min, FA x13 min GABRIELE VELASCO PTA Aug 02, 2019 08:03
[2019-08-02] MEDS: ASPIRIN E.C. 81 MG (ECOTRIN) TAB PO SCH (08:05)
[2019-08-02] MEDS: hydrALAZINE (APRESOLINE) 25 MG TAB PO SCH ×3 (08:06→21:10)
[2019-08-02] MEDS: amLODIPine 5 MG (NORVASC) TAB PO SCH (08:06)
[2019-08-02] MEDS: meTOproloL SUCCINATE 50 MG (TOPROL XL) TAB PO SCH (08:06)
--- NOTE | 2019-08-02 08:36 | Cardiology Progress Note ---
Subjective Date Seen by Provider: Aug 02, 2019 Time Seen by Provider: 08:33 Subjective/Events-last exam Patient is with PT. Denies any chest pain or dyspnea. Denies any palpitations. Review of Systems General: No Chills, No Night Sweats, No Fatigue, No Malaise, No Appetite, No Other HEENT: No Head Aches, No Visual Changes, No Eye Pain, No Ear Pain, No Dysphasia, No Sinus Congestion, No Post Nasal Drip, No Sore Throat, No Other Pulmonary: No Dyspnea, No Cough, No Pleuritic Chest Pain, No Other Cardiovascular: No: Chest Pain, Palpitations, Orthopnea, Paroxysmal Noc. Dyspnea, Edema, Lt Headedness, Other Objective-Cardiology Exam Last Set of Vital Signs Vital Signs 08/02/19 08/02/19 08/02/19 05:49 07:00 08:11 Temp 36.6 Pulse 72 Resp 18 B/P (MAP) 160/81 (107) Pulse Ox 92 O2 Delivery Nasal Cannula O2 Flow Rate 1.00 Capillary Refill : Less Than 3 Seconds I&O Intake and Output 08/02/19 00:00 Intake Total 1510 ml Balance 1510 ml Intake Oral 1510 ml # Voids 10 # Bowel Movements 1 General: Alert, Oriented X3, Cooperative HEENT: Atraumatic, PERRLA Neck: Supple, No JVD, No Thyromegaly Lungs: Clear to Auscultation, Normal Air Movement Heart: Regular Rate, Normal S1, Normal S2, No Murmurs Abdomen: Normal Bowel Sounds, Soft, No Tenderness, No Hepatosplenomegaly, No Masses Extremities: No Clubbing, No Cyanosis, No Edema, Normal Pulses, No Tenderness/Swelling Skin: No Rashes, No Breakdown, No Significant Lesion Neuro: Normal Gait, Normal Speech, Strength at 5/5 X4 Ext, Normal Tone, Sensation Intact Psych/Mental Status: Mental Status NL, Mood NL Results Lab Laboratory Tests 08/02/19 06:20 A/P-Cardiology Admission Diagnosis Hypertensive encephalopathy TIA HLP DM Assessment/Plan Hypertensive encephalopathy- BP better controlled, but still mildly elevated, I will increase hydralazine to TID. TIA with expressive aphasia- CT Head and MRI head negative, symptoms are resolved, likely due to uncontrolled HTN. 2D Echo done 07/28/2019 revealed EF 55- 50%, normal left atrial size. Continue on ASA. Continue to monitor telemetry. Nonobstuctive CAD per cardiac cath done in 2011 HLP- continue to monitor. DM- management per PCP Obesity Patient was seen and evaluated with [place], examination performed, management plan was discussed, agree with the current scribed note, I made few changes to the note using Italic font Patient is feeling better, concern about her episode of TIA, there is questionable history of stroke in the remote past, was on Coumadin as an outpatient, did not have her level checked for a long time. I will proceed with loop recorder implant and consider oral anticoagulation Clinical Quality Measures DVT/VTE Risk/Contraindication: Risk Factor Score Per Nursin RFS Level Per Nursing on Admit: 4+=Very High CHARLOTTE OLIVER Aug 02, 2019 08:36 OCTAVIA BEST MD Aug 02, 2019 10:48
--- NOTE | 2019-08-02 09:00 | Speech Therapy Daily Note ---
Speech Daily Progress Note Subjective Date Seen by Provider: Aug 02, 2019 Time Seen by Provider: 00:15 Patient was pleasant and cooperative with therapy. Objective Patient completed a series of q/a related to recall of weekend events with 90% given minimal cues. Assessment Assessment Current Status: Good Progress Treatment Plan Continue Plan of Care Speech Short Term Goals Short Term Goals Short Term Goals 1) Patient will complete memory tasks related to her daily needs at 90% or greater. 2) Patient will complete problem solving tasks related to her daily needs at 90% or greater. 3) Patient will complete safety awareness tasks related to her daily needs at 90% or greater. 4) Patient will complete executive function tasks related to her daily needs at 90% or greater. Speech [employer] Plant Supervisor Goals [employer] Supervisor Goals Patient will improve cognitive-communication necessary for safety and daily living tasks with minimal assist. Speech-Plan Patient/Family Goals Patient/Family Goals: Patient plans on returning to her home where she lives with her . Treatment Plan Speech Therapy Treatment Plan: Continue Plan of Care Treatment Duration: Jul 28, 2019 Frequency: 5 times per week Estimated Hrs Per Day: .5 hour per day Rehab Potential: Good Barriers to Learning: Patient had mild cognitive deficits, however these are resolving well with therapy Pt/Family Agrees to Plan: Yes Safety Risks/Education Teaching Recipient: Patient Teaching Methods: Demonstration, Discussion Response to Teaching: Verbalize Understanding, Return Demonstration Education Topics Provided: Continued safety within her room and communication of wants/needs. Time Speech Therapy Time In: 09:00 Speech Therapy Time Out: 09:15 Total Billed Time: 15 Billed Treatment Time 1, VICKI Day Aug 02, 2019 09:00
[2019-08-02] MEDS: polyethylene glycoL POWDER 17 GM (MIRALAX) PACK PO SCH ×2 (09:32→21:15)
[2019-08-02] MEDS: DOCUSATE SODIUM 100 MG (COLACE) CAP PO SCH ×2 (09:33→21:15)
[2019-08-02] MEDS: SENNA W/DOCUSATE (SENOKOT S) TABLET PO SCH ×2 (09:33→21:16)
--- NOTE | 2019-08-02 10:10 | PM&R Progress Note ---
Subjective HPI/CC On Admission Date Seen by Provider: Aug 02, 2019 Time Seen by Provider: 10:00 Subjective/Events-last exam Clonidine prn for elevated BP Norvasc started at 5 MG, first dose 3 days ago and doing well so will increase Hydralazine from 25mg to 50mg PO BID Telemetry maintained, normal sinus rhythm per Dr. Rahman but decided to place loop recorder and start OAC Eliquis Doing well overall O2 maintained at night no longer needing it during the day Impulsive at times Checked meds and labs Reviewed therapy notes Conferred with programs assistant of Systems General: Fatigue Neurological: Weakness, Incoordination, Confusion Objective Exam Vital Signs Vital Signs Date Time Temp Pulse Resp B/P (MAP) Pulse Ox O2 Delivery O2 Flow Rate FiO2 08/02/19 19:00 79 08/02/19 17:00 36.2 20 176/96 (122) 91 Room Air 08/02/19 08:11 1.00 Capillary Refill : Less Than 3 Seconds General Appearance: No Apparent Distress, WD/WN, Chronically ill, Obese HEENT: PERRL/EOMI, Normal ENT Inspection, Pharynx Normal Neck: Non Tender, Supple Respiratory: Chest Non Tender, Lungs Clear, Normal Breath Sounds, No Accessory Muscle Use, No Respiratory Distress Cardiovascular: Regular Rate, Rhythm, No Edema, No Gallop, No JVD, No Murmur Gastrointestinal: Normal Bowel Sounds, No Organomegaly, No Pulsatile Mass, Non Tender, Soft Rectal: Deferred Back: Normal Inspection, No CVA Tenderness, No Vertebral Tenderness Extremity: Normal Capillary Refill, Normal Inspection, Normal Range of Motion, Non Tender, No Calf Tenderness Neurologic/Psychiatric: Alert, Oriented x3, director of clinical trials II-XII Norm as Tested, Abnormal Gait, Depressed Affect, Motor Weakness (generalized) Skin: Normal Color, Warm/Dry Results/Procedures Lab Laboratory Tests 08/02/19 06:20 Patient resulted labs reviewed. FIM Transfers Therapy Code Descriptions/Definitions Functional [place] Measure: 0=Not Assessed/NA 4=Minimal Assistance 1=Total Assistance 5=Supervision or Setup 2=Maximal Assistance 6=Modified [place] 3=Moderate Assistance 7=Complete IndependenceSCALE: Activities may be completed with or without assistive devices. 8-Joxfysgaol-znidqfk completes the activity by him/herself with no assistance from a helper. 5-Set-up or Clean-up Assistance-helper sets up or cleans up; patient completes activity. [place] assists only prior to or following the activity. 4-Supervision or Touching Assistance-helper provides verbal cues and/or touching/steadying and/or contact guard assistance as patient completes acti vity. Assistance may be provided throughout the activity or intermittently. 3-Partial/Moderate Assistance-helper does LESS THAN HALF the effort. [place] lifts, holds or supports trunk or limbs, but provides less than half the effort. 2-Substantial/Maximal Assistance-helper does MORE THAN HALF the effort. [place] lifts or holds trunk or limbs and provides more than half the effort. 1-Ofuiazwhl-pjthvw does ALL the effort. Patient does none of the effort to complete the activity. Or, the assistance of 2 or more helpers is required for the patient to complete the activity. If activity was not attempted, code reason: 7-Patient Refused. 9-Not Applicable-not attempted and the patient did not perform the activity before the current illness, exacerbation or injury. 10-Not Attempted due to Environmental Limitations-(lack of equipment, weather restraints, etc.). 88-Not Attempted due to Medical Conditions or Safety Concerns. Roll Left to Right (QC): 3 Sit to Lying (QC): 4 Sit to Stand (QC): 4 (occasionally requiring skilled verb inst for hand placement and technique for safety) Chair/Myw-ar-Hlkwg Xfer(QC): 3 Car Transfer (QC): 4 Gait Training Does the Patient Walk?: Yes Distance: 426 Walk 10 feet (QC): 5 Walk 50 ft with 2 Turns(QC): 4 Walk 150 ft (QC): 4 Walking 10ft/uneven surface-QC: 3 Gait Persons Needed: 1 Gait Assistive Device: FWW Wheelchair Training Does the Pt Use a Wheelchair?: No Stair Training Stair Training: Handrails/: 2 handrails #of Steps: 8 1 Step (curb) (QC): 4 4 Steps (QC): 4 12 Steps (QC): 88 Stairs: Pattern: Step to Balance Picking up an Object (QC): 88 ADL-Treatment Eating (QC): 6 Oral Hygiene (QC): 4 (SBA) Bathing Location: L Arm, R Arm, L Upper Leg, R Upper Leg, Chest, Abdomen, Buttocks, Perineal Area Shower/Bathe Self (QC): 4 (SBA) Upper Body Dressing (QC): 5 (Set-up (completed sitting)) Lower Body Dressing (QC): 4 (SBA demonstrated good static standing balance.) On/Off Footwear (QC): 2 (Max assist with MARIE hose, SBA while donning and doffing socks.) Toileting Hygiene (QC): 4 (SBA with bottom hygiene, independence with trinh hygiene. ) Toilet Transfer (QC): 4 (CGA, need cue for proper hand placement on grab bars. ) Assessment/Plan Assessment and Plan Assess & Plan/Chief Complaint Assessment: HTN encephalopathy PAF? off Coumadin and now loop recorder placed today 08/02/19 and placed on OAC Eliquis HTN OOC improving with more meds Memory loss Hypoxia at night? Plan: Adding BP meds Dr Rahman appreciated Loop recorder OAC today IRF protocol Wean O2 Hydralazine BID along with Norvasc (1) Hypertensive encephalopathy Status: Acute (2) Non-insulin dependent type 2 diabetes mellitus Status: Chronic (3) Essential (primary) hypertension Status: Chronic (4) CVA (cerebral vascular accident) Status: Acute (5) Hypothyroidism (6) GERD (gastroesophageal reflux disease) (7) Anticoagulant prescribed (8) Status post placement of implantable loop recorder CARISSA PETERSON DO Aug 02, 2019 10:10
--- NOTE | 2019-08-02 10:47 | Implantation of Loop Monitor ---
Implant of Loop Monitior IMPLANTATION OF LOOP MONITOR REPORT DATE OF PROCEDURE: 08/02/19 PREOP DIAGNOSIS: Cryptogenic stroke POSTOP DIAGNOSIS: Cryptogenic stroke PROCEDURE DETAILS: The patient is a 73 female with history of stroke on the remote past, has been on Coumadin, did not have her level checked, was not following with a spark plug tester at that time, initially was seeing Dr. Mcfarland until 2011. Admitted with change in mental status, TIA, workup was negative for stroke. Due to her extensive risk factor and the fact that she was on Coumadin I decided to proceed with implantation of loop recorder and start her on oral anticoagulation. Informed consent was taken. All risks and complications were discussed at length. The patient was draped and prepped in the usual sterile fashion. Local anesthesia was lidocaine, which was given in the substernal area close to the 4th intercostal space. Loop monitor [employer] with serial number [id number] was implanted according to the protocol. Steri-Strips were placed at the end of the procedure. There were no complications and the patient tolerated the procedure well. The device was interrogated with a voltage of. ANESTHESIA: Local anesthesia with lidocaine. COMPLICATIONS: None CONTRAST/FLUOROSCOPY: None CONCLUSION: Successful implantation of loop recorder with no complication OCTAVIA BEST MD Aug 02, 2019 10:47
--- NOTE | 2019-08-02 11:53 | Occupational Ther Daily Note ---
OT Current Status-Daily Note Subjective Pt seen in recliner chair, call light on. Pt expresses she is having a "procedure," unable to recall name of physician who stated. Per pt, Dr. Rahman recommended procedure, states will complete in afternoon. Pt requests bathroom, agreeable to shower. Pt seen again from [id number] (15): Pt seen in recliner, ate much of lunch. Pt agrees to tx. No pain noted. Mental Status/Objective Patient Orientation: Person, Place, Situation ADL-Treatment Therapy Code Descriptions/Definitions Functional [place] Measure: 0=Not Assessed/NA 4=Minimal Assistance 1=Total Assistance 5=Supervision or Setup 2=Maximal Assistance 6=Modified [place] 3=Moderate Assistance 7=Complete IndependenceSCALE: Activities may be completed with or without assistive devices. 0-Qewyqsnhmg-vqivlbd completes the activity by him/herself with no assistance from a helper. 5-Set-up or Clean-up Assistance-helper sets up or cleans up; patient completes activity. [place] assists only prior to or following the activity. 4-Supervision or Touching Assistance-helper provides verbal cues and/or touching/steadying and/or contact guard assistance as patient completes activity. Assistance may be provided throughout the activity or intermittently. 3-Partial/Moderate Assistance-helper does LESS THAN HALF the effort. [place] lifts, holds or supports trunk or limbs, but provides less than half the effort. 2-Substantial/Maximal Assistance-helper does MORE THAN HALF the effort. [place] lifts or holds trunk or limbs and provides more than half the effort. 6-Xnwpizxil-wfxyfd does ALL the effort. Patient does none of the effort to complete the activity. Or, the assistance of 2 or more helpers is required for the patient to complete the activity. If activity was not attempted, code reason: 7-Patient Refused. 9-Not Applicable-not attempted and the patient did not perform the activity before the current illness, exacerbation or injury. 10-Not Attempted due to Environmental Limitations-(lack of equipment, weather restraints, etc.). 88-Not Attempted due to Medical Conditions or Safety Concerns. Eating (QC): 6 Oral Hygiene (QC): 4 Toileting Hygiene (QC): 4 Toilet Transfer (QC): 4 Other Treatment [id number]: Pt completes sit to stand with SBA with walker. Cues for continued use of walker. pt completes toileting with SUP- sits in shower. Nursing notifies OT of procedure soon. Pt educated on this activity, pt returns to bed with SBA. Pt denies needs. Pt left with nursing and cardiology. [id number] (15): Pt completes sit to stand with SBA, completes toileting with SBA. pt then completes oral hygiene at sink with SUP. Pt returns to recliner chair, completes theraband ex bilaterally (10 reps): bicep curls, scaption, and shoulder extensions. Pt left in room with call light in reach, all needs met. Education OT Patient Education: Correct positioning, Safety issues Teaching Recipient: Patient Teaching Methods: Demonstration, Discussion Response to Teaching: Verbalize Understanding, Return Demonstration OT Compensation Intern Goals Compensation Intern Goals Time Frame: Aug 13, 2019 Eating (QC): 6 Oral Hygiene (QC): 6 Toileting Hygiene (QC): 6 Shower/Bathe Self (QC): 6 Upper Body Dressing (QC): 6 Lower Body Dressing (QC): 6 On/Off Footwear (QC): 6 Additional Goals: 1-Demonstrate ADL Tasks, 2-Verbalize Understanding, 3-ImproveStrength/Sujatha 1=Demonstrate adherence to instructed precautions during ADL tasks. 2=Patient will verbalize/demonstrate understanding of assistive devices/modifications for ADL. 3=Patient will improve strength/tolerance for activity to enable patient to perform ADL's. OT Education/Plan Problem List/Assessment Assessment: Decreased Activ Tolerance, Decreased Safety Aware, Decreased UE Strength, Impaired I ADL's, Impaired Self-Care Skills Discharge Recommendations Plan/Recommendations: Continue POC Therapy Discharge Recommendati: Intermittent Supervision, Home & Family, Post Acute OT Treatment Plan/Plan of Care Treatment,Training & Education: Yes Patient would benefit from OT for education, treatment and training to promote independence in ADL's, mobility, safety and/or upper extremity function for ADL's. Plan of Care: ADL Retraining, Functional Mobility, Group Exercise/Act as Ind, UE Funct Exercise/Act Treatment Duration: Aug 13, 2019 Frequency: At least 5 of 7 days/Wk (IRF) Estimated Hrs Per Day: 1.5 hours per day Agreement: Yes Rehab Potential: Good Time/GCodes Start Time: 09:30 (1235) Stop Time: 09:45 (1250) Total Time Billed (hr/min): 30 (15+15) Billed Treatment Time [id number]: 1, ADL (15) [id number]: 1, ADL (15) MICHELLE ESQUEDA OTR Aug 02, 2019 11:53
--- NOTE | 2019-08-02 13:01 | Occupational Ther Daily Note ---
OT Current Status-Daily Note Subjective Pt seated upright in recliner at start of session. When asked if she has had any OT today, pt unable to recall. OT explained what tx would have included such as assisting her with dressing, pt indicated she must have had some OT since she is dressed. She did not report any pain. Mental Status/Objective Patient Orientation: Confused ADL-Treatment Therapy Code Descriptions/Definitions Functional [place] Measure: 0=Not Assessed/NA 4=Minimal Assistance 1=Total Assistance 5=Supervision or Setup 2=Maximal Assistance 6=Modified [place] 3=Moderate Assistance 7=Complete IndependenceSCALE: Activities may be completed with or without assistive devices. 1-Tneftqodfv-dzmznsn completes the activity by him/herself with no assistance from a helper. 5-Set-up or Clean-up Assistance-helper sets up or cleans up; patient completes activity. [place] assists only prior to or following the activity. 4-Supervision or Touching Assistance-helper provides verbal cues and/or touching/steadying and/or contact guard assistance as patient completes activity. Assistance may be provided throughout the activity or intermittently. 3-Partial/Moderate Assistance-helper does LESS THAN HALF the effort. [place] lifts, holds or supports trunk or limbs, but provides less than half the effort. 2-Substantial/Maximal Assistance-helper does MORE THAN HALF the effort. [place] lifts or holds trunk or limbs and provides more than half the effort. 9-Nyqvzctor-pwrkln does ALL the effort. Patient does none of the effort to complete the activity. Or, the assistance of 2 or more helpers is required for the patient to complete the activity. If activity was not attempted, code reason: 7-Patient Refused. 9-Not Applicable-not attempted and the patient did not perform the activity before the current illness, exacerbation or injury. 10-Not Attempted due to Environmental Limitations-(lack of equipment, weather restraints, etc.). 88-Not Attempted due to Medical Conditions or Safety Concerns. Toileting Hygiene (QC): 4 (CGA) Toilet Transfer (QC): 4 (CGA with FWW and GBs) Other Treatment Pt seated in recliner, agreeable to OT tx. Pt completed toileting, then stood at sink for handwashing with CGA and min verbal cues. Pt performed functional mobility to therapy area. In order to increase functional endurance and strength, pt completed arm bike x15 mins, min resistance. Pt also completed home safety questions/education as she completed the arm bike. Noted increased difficulty with dual tasking, as she thought of answers to questions her pace on the arm bike slowed or stopped completely. Pt required multiple rest breaks with arm bike. Pt returned to room using FWW with CGA. Post OT session, pt seated upright in recliner, call light in reach and all needs met. Education OT Patient Education: Correct positioning, Energy conservation, Exercise program, Modified ADL techniques, Progress toward Goal/Update tx plan, Purpose of tx/functional activities, Safety issues, Transfer techniques Teaching Recipient: Patient Teaching Methods: Discussion Response to Teaching: Verbalize Understanding OT Radius Grinder Goals Alf Goals Time Frame: Aug 13, 2019 Eating (QC): 6 Oral Hygiene (QC): 6 Toileting Hygiene (QC): 6 Shower/Bathe Self (QC): 6 Upper Body Dressing (QC): 6 Lower Body Dressing (QC): 6 On/Off Footwear (QC): 6 Additional Goals: 1-Demonstrate ADL Tasks, 2-Verbalize Understanding, 3- ImproveStrength/Sujatha 1=Demonstrate adherence to instructed precautions during ADL tasks. 2=Patient will verbalize/demonstrate understanding of assistive devices/modifications for ADL. 3=Patient will improve strength/tolerance for activity to enable patient to perform ADL's. OT Education/Plan Problem List/Assessment Assessment: Decreased Activ Tolerance, Decreased Safety Aware, Decreased UE Strength, Impaired Cognition, Impaired I ADL's, Impaired Self-Care Skills Discharge Recommendations Plan/Recommendations: Continue POC Treatment Plan/Plan of Care Patient would benefit from OT for education, treatment and training to promote independence in ADL's, mobility, safety and/or upper extremity function for ADL's. Plan of Care: ADL Retraining, Functional Mobility, Group Exercise/Act as Ind, UE Funct Exercise/Act Treatment Duration: Aug 13, 2019 Frequency: At least 5 of 7 days/Wk (IRF) Estimated Hrs Per Day: 1.5 hours per day Agreement: Yes Rehab Potential: Good Time/GCodes Start Time: 11:15 Stop Time: 12:00 Total Time Billed (hr/min): 45 Billed Treatment Time 1, ADL (15'), FA 2 (30') SHAAN AGUIRRE OT Aug 02, 2019 13:01
--- NOTE | 2019-08-02 13:14 | Progress Note ---
AMY ALCANTAR,JOSEFINA STUDENT 08/02/19 1314: Progress Note IRF Course Ms. Lake is a 73yo female patient of Dr. Wynn who was brought in by her who believed she had an altered mental status as she was up watching tv in the middle of the night and had slight confusion and generalized weakness. She has a hx of HTN, hyperlipidemia, NIDDM, GERD, hypothyroidism, and arthritis. CT and MRI revealed no CVA. She was admitted to IRF with the goal of returning home where she lives with her . While working with PT and OT she has focused on bed mobility, gait and transfers. Per PT she has decreased functional strength and a deficit in her balance. She is requiring assistance with transfers and toilet use, and requires verbal cues for hand placement and technique. She has been having bm's, but has not had one today and is continuing to require stool softeners. She has been on Coumadin due to a distant hx of stroke, but has not been seeing a junior php developer and has not been having her INR followed. Cardiology was consulted, and Dr. Rahman discontinued her Coumadin, started a loop recorder, and started her on [place]. Due to decreased functional strength and decreased ability to perform ADL's, she will benefit from another 5-7 days of PT and OT with a target date for discharge of 08/08. CAMILLA PETERSON DO 08/02/19 1943: Supervisory-Addendum Brief Verification & Attestation Participated in pt care: history, MDM, physical Personally performed: exam, history, MDM, supervision of care Care discussed with: Medical Student Procedures: n/a Results interpretation: Verified all documentation Verification and Attestation of Medical Student E/M Service A medical student performed and documented this service in my presence. I reviewed and verified all information documented by the medical student and made modifications to such information, when appropriate. I personally performed the physical exam and medical decision making. Camilla Peterson Aug 02, 2019,19:43 AMY ALCANTAR MED STUDENT Aug 02, 2019 13:14 CAMILLA PETERSON DO Aug 02, 2019 19:43
--- NOTE | 2019-08-02 15:22 | Physical Therapy Daily Note ---
PT Daily Note-Current Subjective Agrees to PT. NO complaints. Mental Status Patient Orientation: Person, Place, Time, Situation Transfers SCALE: Activities may be completed with or without assistive devices. 3-Huxdrjgvma-gfryvug completes the activity by him/herself with no assistance from a helper. 5-Set-up or Clean-up Assistance-helper sets up or cleans up; patient completes activity. [place] assists only prior to or following the activity. 4-Supervision or Touching Assistance-helper provides verbal cues and/or touching/steadying and/or contact guard assistance as patient completes activity. Assistance may be provided throughout the activity or intermittently. 3-Partial/Moderate Assistance-helper does LESS THAN HALF the effort. [place] lifts, holds or supports trunk or limbs, but provides less than half the effort. 2-Substantial/Maximal Assistance-helper does MORE THAN HALF the effort. [place] lifts or holds trunk or limbs and provides more than half the effort. 4-Spblfpbqr-snroty does ALL the effort. Patient does none of the effort to complete the activity. Or, the assistance of 2 or more helpers is required for the patient to complete the activity. If activity was not attempted, code reason: 7-Patient Refused. 9-Not Applicable-not attempted and the patient did not perform the activity before the current illness, exacerbation or injury. 10-Not Attempted due to Environmental Limitations-(lack of equipment, weather restraints, etc.). 88-Not Attempted due to Medical Conditions or Safety Concerns. Sit to Stand (QC): 4 (SBA for safety with intermittent cues fo rhand placement) Toilet Transfer (QC): 4 (SBA) Weight Bearing Right Lower Extremity: Right Full Weight Bearing Left Lower Extremity: Left Full Weight Bearing Gait Training Walk 150 ft (QC): 4 Gait Assistive Device: FWW 200 ft x 4 with FWW with intermittent cues for posture and step length; adjusted walker to appropriate height. Pt toileted, SBA with transfre, pericare and clothing management. Assessment Current Status: Good Progress Responds to cues well. Progressing with functional mobiltiy. PT Short Term Goals Short Term Goals Time Frame: Aug 02, 2019 Sit to lyin Lying to sitting on side of be: 4 Sit to stand: 4 (met) Walk 150 feet: 4 (met) PT Meter/Relay Craftsman Goals Usp Goals PT Usp Goals Time Frame: Aug 11, 2019 Roll Left & Right (QC): 6 Sit to Lying (QC): 6 Lying-Sitting on Side/Bed(QC): 6 Sit to Stand (QC): 6 Chair/Yqu-sg-Fhjgm Xfer(QC): 6 Toilet Transfer (QC): 6 Car Transfer (QC): 6 Does the Patient Walk: Yes Walk 10 feet (QC): 6 Walk 50ft with 2 Turns (QC): 6 Walk 150 ft (QC): 6 Walking 10ft on Uneven Surface: 6 1 Step (curb) (QC): 6 4 Steps (QC): 6 12 Steps (QC): 9 Picking up an Object (QC): 4 Does the Pt use WC or Scooter?: No PT Plan Problem List Problem List: Activity Tolerance, Functional Strength, Safety, Balance, Gait, Transfer, Bed Mobility Treatment/Plan Treatment Plan: Continue Plan of Care Treatment Plan: Bed Mobility, Education, Functional Activity Sujatha, Functional Strength, Group Therapy, Gait, Safety, Therapeutic Exercise, Transfers Treatment Duration: Aug 11, 2019 Frequency: At least 5 of 7 days/Wk (IRF) Estimated Hrs Per Day: 1.5 hours per day Patient and/or Family Agrees t: Yes Safety Risks/Education Patient Education: Transfer Techniques, Safety Issues Teaching Recipient: Patient Teaching Methods: Demonstration, Discussion Response to Teaching: Reinforcement Needed Time/GCodes Time In: 1310 Time Out: 1340 Total Billed Treatment Time: 30 Total Billed Treatment visit GT 30 JUANCARLOS ARELLANO PT Aug 02, 2019 15:22
[2019-08-02 17:00] VITALS: BP 176/96
--- NOTE | 2019-08-02 19:25 | NUR ---
bedside report received from EUGENE OKEEFE, assume care of pt
[2019-08-02 21:08] VITALS: BP 179/81
--- NOTE | 2019-08-02 21:10 | NUR ---
pt refused Colace, miralax & Senokot, v/s [id number]/81 0/10 on numeric scale, gave pt Apresoline 50mg will recheck b/p later
[2019-08-02] MEDS: ENOXAPARIN 40 MG/0.4 ML (LOVENOX) SYR SC SCH (21:11)
--- NOTE | 2019-08-02 23:03 | NUR ---
v/s [id number]%-181/82 Catapres 0.1mg given
[2019-08-02 23:05] VITALS: BP 181/81
[2019-08-02] MEDS: cloNIDine 0.1 MG (CATAPRES) TAB PO PRN (23:09)
[2019-08-03 01:15] VITALS: BP 152/72
--- NOTE | 2019-08-03 01:15 | NUR ---
b/p 152/72 Addendum: 08/03/19 at 0154 by NANCY OCASIO RN erick/p 162/82
[2019-08-03 01:30] VITALS: BP 162/82
[2019-08-03 06:00] VITALS: BP 162/82
[2019-08-03 08:00] VITALS: BP 159/80
--- NOTE | 2019-08-03 08:09 | Physical Therapy Daily Note ---
PT Daily Note-Current Subjective Pt agreeable to PT session. Pain Numeric Pain Scale: 0-No Pain Appearance Pt in bathroom with nursing upon arrival. Pt requesting and assisted in dressing. At end of session pt sitting up in recliner with alarm activated, call light, phone and bedside table within reach. 2nd session: pt sitting up in recliner upon arrival asking to lay down after therapy session. Pt requesting and assisted to bathroom setup/supervision only required. At end of session, pt in bed with call light, phone and bedside table within reach. Mental Status Patient Orientation: Person, Place, Time, Eyes Open, Situation Attachments: [place]ine Lock, Oxygen (at night and during naps) Transfers SCALE: Activities may be completed with or without assistive devices. 9-Zjpfvydozy-zoyeige completes the activity by him/herself with no assistance from a helper. 5-Set-up or Clean-up Assistance-helper sets up or cleans up; patient completes activity. [place] assists only prior to or following the activity. 4-Supervision or Touching Assistance-helper provides verbal cues and/or touching/steadying and/or contact guard assistance as patient completes activity. Assistance may be provided throughout the activity or intermittently. 3-Partial/Moderate Assistance-helper does LESS THAN HALF the effort. [place] lifts, holds or supports trunk or limbs, but provides less than half the effort. 2-Substantial/Maximal Assistance-helper does MORE THAN HALF the effort. [place] lifts or holds trunk or limbs and provides more than half the effort. 2-Oiiydeprp-ihvedp does ALL the effort. Patient does none of the effort to complete the activity. Or, the assistance of 2 or more helpers is required for the patient to complete the activity. If activity was not attempted, code reason: 7-Patient Refused. 9-Not Applicable-not attempted and the patient did not perform the activity before the current illness, exacerbation or injury. 10-Not Attempted due to Environmental Limitations-(lack of equipment, weather restraints, etc.). 88-Not Attempted due to Medical Conditions or Safety Concerns. Roll Left & Right (QC): 6 Sit to Lying (QC): 6 Lying to Sitting/Side of Bed(Q: 6 Sit to Stand (QC): 4 (SBA occasionally requiring skilled inst for hand placement and safety) Toilet Transfer (QC): 5 Weight Bearing Right Lower Extremity: Right Full Weight Bearing Left Lower Extremity: Left Full Weight Bearing Gait Training Does the Patient Walk?: Yes Distance: 250 x2, 300 Walk 10 feet (QC): 5 Walk 50 ft with 2 Turns(QC): 4 Walk 150 ft (QC): 4 Gait Persons Needed: 1 Gait Assistive Device: FWW slight kyphotic fwd flexed posture, decreased step length and height, very light touch on walker. Pt able to follow skilled instruction to improve posture, step length and height. No LOB or unsteadiness. Wheelchair Training Does the Pt Use a Wheelchair?: No Exercises Seated Therapy Exercises: Ankle pumps (20), Sit to stand (10), Long arc quads (20), Hip flexion (20), Hip abd/add (20) Standing: Heel/toe raises, Marching, Mini squats, Retro gait, Sit to Stand, Side steps Standing Reps: 10 NuStep Minutes: 15 NuStep Workload: 4 (seat and arms 9) Treatments education, safety, toileting, trinh care, dressing, transfers, gait, strength, balance, activity tolerance, functional mobility, bed mobility Assessment Current Status: Good Progress occasionally impulsive, able to follow instruction PT Short Term Goals Short Term Goals Time Frame: Aug 02, 2019 Sit to lyin Lying to sitting on side of be: 4 Sit to stand: 4 (met) Walk 150 feet: 4 (met) PT Intermediate Goals Intermediate Goals PT Manager Corporate Strategy Goals Time Frame: Aug 11, 2019 Roll Left & Right (QC): 6 Sit to Lying (QC): 6 Lying-Sitting on Side/Bed(QC): 6 Sit to Stand (QC): 6 Chair/Evx-gc-Mchvg Xfer(QC): 6 Toilet Transfer (QC): 6 Car Transfer (QC): 6 Does the Patient Walk: Yes Walk 10 feet (QC): 6 Walk 50ft with 2 Turns (QC): 6 Walk 150 ft (QC): 6 Walking 10ft on Uneven Surface: 6 1 Step (curb) (QC): 6 4 Steps (QC): 6 12 Steps (QC): 9 Picking up an Object (QC): 4 Does the Pt use WC or Scooter?: No PT Plan Treatment/Plan Treatment Plan: Continue Plan of Care Treatment Plan: Bed Mobility, Education, Functional Activity Sujatha, Functional Strength, Group Therapy, Gait, Safety, Therapeutic Exercise, Transfers Treatment Duration: Aug 11, 2019 Frequency: At least 5 of 7 days/Wk (IRF) Estimated Hrs Per Day: 1.5 hours per day Patient and/or Family Agrees t: Yes Safety Risks/Education Patient Education: Gait Training, Transfer Techniques, Safety Issues Teaching Recipient: Patient Teaching Methods: Demonstration, Discussion Response to Teaching: Verbalize Understanding, Return Demonstration Time/GCodes Time In: 752 (2nd session: 1315) Time Out: 900 (2nd session: 1330) Total Billed Treatment Time: 68 (2nd session: 15) Total Billed Treatment 1st session: 1 visit, EX x30 min, GT x25 min, FA x20 min. 2nd session: 1 visit, GT x15 min GABRIELE VELASCO PTA Aug 03, 2019 08:09
[2019-08-03] MEDS: SENNA W/DOCUSATE (SENOKOT S) TABLET PO SCH ×2 (09:00→21:01)
[2019-08-03] MEDS: polyethylene glycoL POWDER 17 GM (MIRALAX) PACK PO SCH ×2 (09:00→21:01)
[2019-08-03] MEDS: DOCUSATE SODIUM 100 MG (COLACE) CAP PO SCH ×2 (09:00→21:01)
--- NOTE | 2019-08-03 09:39 | PM&R Progress Note ---
Subjective HPI/CC On Admission Date Seen by Provider: Aug 03, 2019 Time Seen by Provider: 09:45 Subjective/Events-last exam BP 159/80 much improved since adding meds Loop recorder in place so OMAR Au tolerated well No pain is reported at the bedside today Checked meds and labs Reviewed therapy notes Conferred with development technologist of Systems General: Fatigue Neurological: Weakness, Incoordination, Confusion Objective Exam Vital Signs Vital Signs Date Time Temp Pulse Resp B/P (MAP) Pulse Ox O2 Delivery O2 Flow Rate FiO2 08/03/19 18:53 Room Air 08/03/19 16:35 1.00 08/03/19 16:14 36.6 71 16 150/86 (107) 94 Capillary Refill : Less Than 3 Seconds General Appearance: No Apparent Distress, WD/WN, Chronically ill, Obese HEENT: PERRL/EOMI, Normal ENT Inspection, Pharynx Normal Neck: Non Tender, Supple Respiratory: Chest Non Tender, Lungs Clear, Normal Breath Sounds, No Accessory Muscle Use, No Respiratory Distress Cardiovascular: Regular Rate, Rhythm, No Edema, No Gallop, No JVD, No Murmur Gastrointestinal: Normal Bowel Sounds, No Organomegaly, No Pulsatile Mass, Non Tender, Soft Rectal: Deferred Back: Normal Inspection, No CVA Tenderness, No Vertebral Tenderness Extremity: Normal Capillary Refill, Normal Inspection, Normal Range of Motion, Non Tender, No Calf Tenderness Neurologic/Psychiatric: Alert, Oriented x3, marine specialist II-XII Norm as Tested, Abnormal Gait, Depressed Affect, Motor Weakness (generalized) Skin: Normal Color, Warm/Dry Results/Procedures Lab Patient resulted labs reviewed. FIM Transfers Therapy Code Descriptions/Definitions Functional [place] Measure: 0=Not Assessed/NA 4=Minimal Assistance 1=Total Assistance 5=Supervision or Setup 2=Maximal Assistance 6=Modified [place] 3=Moderate Assistance 7=Complete IndependenceSCALE: Activities may be completed with or without assistive devices. 5-Wexhhufzde-rlwyxes completes the activity by him/herself with no assistance from a helper. 5-Set-up or Clean-up Assistance-helper sets up or cleans up; patient completes activity. [place] assists only prior to or following the activity. 4-Supervision or Touching Assistance-helper provides verbal cues and/or touching/steadying and/or contact guard assistance as patient completes activity. Assistance may be provided throughout the activity or intermittently. 3-Partial/Moderate Assistance-helper does LESS THAN HALF the effort. [place] lifts, holds or supports trunk or limbs, but provides less than half the effort. 2-Substantial/Maximal Assistance-helper does MORE THAN HALF the effort. [place] lifts or holds trunk or limbs and provides more than half the effort. 8-Ffkgesluc-rdkomq does ALL the effort. Patient does none of the effort to complete the activity. Or, the assistance of 2 or more helpers is required for the patient to complete the activity. If activity was not attempted, code reason: 7-Patient Refused. 9-Not Applicable-not attempted and the patient did not perform the activity before the current illness, exacerbation or injury. 10-Not Attempted due to Environmental Limitations-(lack of equipment, weather restraints, etc.). 88-Not Attempted due to Medical Conditions or Safety Concerns. Roll Left to Right (QC): 3 Sit to Lying (QC): 4 Sit to Stand (QC): 4 (SBA occasionally requiring skilled inst for hand placement and safety) Chair/Zti-fl-Mcibp Xfer(QC): 3 Car Transfer (QC): 4 Gait Training Does the Patient Walk?: Yes Distance: 250 x2 Walk 10 feet (QC): 5 Walk 50 ft with 2 Turns(QC): 4 Walk 150 ft (QC): 4 Walking 10ft/uneven surface-QC: 3 Gait Persons Needed: 1 Gait Assistive Device: FWW Wheelchair Training Does the Pt Use a Wheelchair?: No Stair Training Stair Training: Handrails/: 2 handrails #of Steps: 8 1 Step (curb) (QC): 4 4 Steps (QC): 4 12 Steps (QC): 88 Stairs: Pattern: Step to Balance Picking up an Object (QC): 88 ADL-Treatment Eating (QC): 6 Oral Hygiene (QC): 4 Bathing Location: L Arm, R Arm, L Upper Leg, R Upper Leg, Chest, Abdomen, Buttocks, Perineal Area Shower/Bathe Self (QC): 4 (SBA) Upper Body Dressing (QC): 5 (Set-up (completed sitting)) Lower Body Dressing (QC): 4 (SBA demonstrated good static standing balance.) On/Off Footwear (QC): 2 (Max assist with MARIE hose, SBA while donning and doffing socks.) Toileting Hygiene (QC): 4 Toilet Transfer (QC): 4 Assessment/Plan Assessment and Plan Assess & Plan/Chief Complaint Assessment: HTN encephalopathy PAF? off Coumadin and now loop recorder placed today 08/02/19 and placed on OAC Eliquis HTN OOC improving with more meds Memory loss Hypoxia at night? Plan: Adding BP meds Dr Rahman appreciated Loop recorder OAC today IRF protocol Wean O2 Hydralazine 50mg BID along with Norvasc (1) Hypertensive encephalopathy Status: Acute (2) Non-insulin dependent type 2 diabetes mellitus Status: Chronic (3) Essential (primary) hypertension Status: Chronic (4) CVA (cerebral vascular accident) Status: Acute (5) Hypothyroidism (6) GERD (gastroesophageal reflux disease) (7) Anticoagulant prescribed (8) Status post placement of implantable loop recorder CARISSA PETERSON DO Aug 03, 2019 09:39
[2019-08-03] MEDS: ASPIRIN E.C. 81 MG (ECOTRIN) TAB PO SCH (10:17)
[2019-08-03] MEDS: hydrALAZINE (APRESOLINE) 25 MG TAB PO SCH ×2 (10:17→20:53)
[2019-08-03] MEDS: amLODIPine 5 MG (NORVASC) TAB PO SCH (10:17)
[2019-08-03] MEDS: meTOproloL SUCCINATE 50 MG (TOPROL XL) TAB PO SCH (10:17)
--- NOTE | 2019-08-03 10:19 | Cardiology Progress Note ---
Subjective Date Seen by Provider: Aug 03, 2019 Time Seen by Provider: 10:17 Subjective/Events-last exam Patient is sitting in a chair, feeling well. No new complaint Review of Systems General: No Chills, No Night Sweats, No Fatigue, No Malaise, No Appetite, No Other HEENT: No Head Aches, No Visual Changes, No Eye Pain, No Ear Pain, No Dysphasia, No Sinus Congestion, No Post Nasal Drip, No Sore Throat, No Other Pulmonary: No Dyspnea, No Cough, No Pleuritic Chest Pain, No Other Cardiovascular: No: Chest Pain, Palpitations, Orthopnea, Paroxysmal Noc. Dyspnea, Edema, Lt Headedness, Other Objective-Cardiology Exam Last Set of Vital Signs Vital Signs 08/03/19 08/03/19 06:00 07:00 Temp 36.8 Pulse 79 Resp 16 B/P (MAP) 162/82 (108) Pulse Ox 93 O2 Delivery Nasal Cannula O2 Flow Rate 1.00 Capillary Refill : Less Than 3 Seconds I&O Intake and Output 08/03/19 00:00 Intake Total 1170 ml Balance 1170 ml Intake Oral 1170 ml # Voids 9 General: Alert, Oriented X3, Cooperative HEENT: Atraumatic, PERRLA Neck: Supple, No JVD, No Thyromegaly Lungs: Clear to Auscultation, Normal Air Movement Heart: Regular Rate, Normal S1, Normal S2, No Murmurs Abdomen: Normal Bowel Sounds, Soft, No Tenderness, No Hepatosplenomegaly, No Masses Extremities: No Clubbing, No Cyanosis, No Edema, Normal Pulses, No Tenderness/Swelling Skin: No Rashes, No Breakdown, No Significant Lesion Neuro: Normal Gait, Normal Speech, Strength at 5/5 X4 Ext, Normal Tone, Sensation Intact Psych/Mental Status: Mental Status NL, Mood NL A/P-Cardiology Admission Diagnosis Hypertensive encephalopathy TIA [facility] DM Assessment/Plan Hypertensive encephalopathy- BP better controlled, but still mildly elevated, I will add lisinopril 10 mg daily and evaluate tolerance and response TIA with expressive aphasia- CT Head and MRI head negative, symptoms are resolved, likely due to uncontrolled HTN. 2D Echo done 07/28/2019 revealed EF 55- 50%, normal left atrial size. Continue on ASA. Continue to monitor telemetry. Status post loop implantation. Continue to monitor Nonobstuctive CAD per cardiac cath done in 2011 HLP- continue to monitor. DM- management per PCP Obesity Clinical Quality Measures DVT/VTE Risk/Contraindication: Risk Factor Score Per Nursin RFS Level Per Nursing on Admit: 4+=Very High OCTAVIA BEST MD Aug 03, 2019 10:19
--- NOTE | 2019-08-03 11:03 | Occupational Ther Daily Note ---
OT Current Status-Daily Note Subjective Pt seen in recliner chair. Pt hesitantly agreeable to OT tx session, though denies showering/ ADLs. present through part of session. Pt states headache back of head, denies pain medication, BP taken during activity with 148/76. Mental Status/Objective Patient Orientation: Person, Place, Time, Situation Attachments: Telemetry ADL-Treatment Therapy Code Descriptions/Definitions Functional [place] Measure: 0=Not Assessed/NA 4=Minimal Assistance 1=Total Assistance 5=Supervision or Setup 2=Maximal Assistance 6=Modified [place] 3=Moderate Assistance 7=Complete IndependenceSCALE: Activities may be completed with or without assistive devices. 1-Frnkezseao-fjllxhz completes the activity by him/herself with no assistance from a helper. 5-Set-up or Clean-up Assistance-helper sets up or cleans up; patient completes activity. [place] assists only prior to or following the activity. 4-Supervision or Touching Assistance-helper provides verbal cues and/or touching/steadying and/or contact guard assistance as patient completes activity. Assistance may be provided throughout the activity or intermittently. 3-Partial/Moderate Assistance-helper does LESS THAN HALF the effort. [place] lifts, holds or supports trunk or limbs, but provides less than half the effort. 2-Substantial/Maximal Assistance-helper does MORE THAN HALF the effort. [place] lifts or holds trunk or limbs and provides more than half the effort. 6-Krfqbzgxl-eljajx does ALL the effort. Patient does none of the effort to complete the activity. Or, the assistance of 2 or more helpers is required for the patient to complete the activity. If activity was not attempted, code reason: 7-Patient Refused. 9-Not Applicable-not attempted and the patient did not perform the activity before the current illness, exacerbation or injury. 10-Not Attempted due to Environmental Limitations-(lack of equipment, weather restraints, etc.). 88-Not Attempted due to Medical Conditions or Safety Concerns. Eating (QC): 6 Oral Hygiene (QC): 4 (SUP at sink with 2WW) Shower/Bathe Self (QC): 7 Upper Body Dressing (QC): 7 Lower Body Dressing (QC): 7 On/Off Footwear: 7 Toileting Hygiene (QC): 4 (SUP) Toilet Transfer (QC): 4 (SUP during transfer due to no use of walker. ) Other Treatment Pt agrees to complete theraband ex in recliner/ in stance, present during session. Pt completes 10 reps of following exercises in standing (bilaterally): bicep curls, shoulder flexion, shoulder scaption; and in sitting (bilaterally): triceps, shoulder horizontal abduction, horizontal adduction, back (shoulder) extensions. Pt states SOB (02 assessed- 98%), pt educated on continuing endurance/ standing ex for home safety, pt agrees. Pt, , and OT discuss home environment- pt states no forseen barriers, states will pull car to steps and pt utilizes wide-base/ 3" high steps with bilateral hand rails to enter. Pt completes oral hygiene/ toileting with SUP, cues for use of walker. Pt agrees to endurance ex- ambulates to therapy room with 2WW, completes 15 min standing/ min resistance arm bike ex with 1 rest break at 5 min. Pt completes activity with over 90% 02 maintained. Pt returns to room, sits in recliner, call light in reach, all needs met. Education OT Patient Education: Correct positioning, Exercise program, Home exercise program, Instructions to caregiver, Modified ADL techniques, Progress toward Goal/Update tx plan, Purpose of tx/functional activities, Safety issues Teaching Recipient: Patient, Significant Other Teaching Methods: Demonstration, Discussion Response to Teaching: Verbalize Understanding, Return Demonstration, Reinforcement Needed OT Storage Facility Rental Clerk Goals [facility] Goals Time Frame: Aug 13, 2019 Eating (QC): 6 Oral Hygiene (QC): 6 Toileting Hygiene (QC): 6 Shower/Bathe Self (QC): 6 Upper Body Dressing (QC): 6 Lower Body Dressing (QC): 6 On/Off Footwear (QC): 6 Additional Goals: 1-Demonstrate ADL Tasks, 2-Verbalize Understanding, 3-ImproveStrength/Sujatha 1=Demonstrate adherence to instructed precautions during ADL tasks. 2=Patient will verbalize/demonstrate understanding of assistive devices/modifications for ADL. 3=Patient will improve strength/tolerance for activity to enable patient to perform ADL's. OT Education/Plan Problem List/Assessment Assessment: Decreased Activ Tolerance, Decreased Safety Aware, Decreased UE Strength, Impaired Funct Balance, Impaired I ADL's, Impaired Self-Care Skills Discharge Recommendations Plan/Recommendations: Continue POC Therapy Discharge Recommendati: Intermittent Supervision, Home & Family, Post Acute OT Treatment Plan/Plan of Care Treatment,Training & Education: Yes Patient would benefit from OT for education, treatment and training to promote independence in ADL's, mobility, safety and/or upper extremity function for ADL's. Plan of Care: ADL Retraining, Functional Mobility, Group Exercise/Act as Ind, UE Funct Exercise/Act Treatment Duration: Aug 13, 2019 Frequency: At least 5 of 7 days/Wk (IRF) Estimated Hrs Per Day: 1.5 hours per day Agreement: Yes Rehab Potential: Good Time/GCodes Start Time: 09:30 Stop Time: 11:00 Total Time Billed (hr/min): 90 Billed Treatment Time 1, EX 5 (75), ADL (15)= 90 MICHELLE ESQUEDA OTR Aug 03, 2019 11:03
--- NOTE | 2019-08-03 11:36 | Speech Therapy Daily Note ---
Speech Daily Progress Note Subjective Date Seen by Provider: Aug 03, 2019 Time Seen by Provider: 00:30 Patient was resting in her chair, her came in to visit while our session was going. Objective Patient completed a series of memory questions related to her daily needs with 90% without cues. Assessment Assessment Current Status: Good Progress Treatment Plan Continue Plan of Care Speech Short Term Goals Short Term Goals Short Term Goals 1) Patient will complete memory tasks related to her daily needs at 90% or greater. 2) Patient will complete problem solving tasks related to her daily needs at 90% or greater. 3) Patient will complete safety awareness tasks related to her daily needs at 90 % or greater. 4) Patient will complete executive function tasks related to her daily needs at 90% or greater. Speech [facility] Goals [facility] Goals Patient will improve cognitive-communication necessary for safety and daily living tasks with minimal assist. Speech-Plan Patient/Family Goals Patient/Family Goals: Patient plans on returning to her home where she lives with her . Treatment Plan Speech Therapy Treatment Plan: Continue Plan of Care Treatment Duration: Jul 28, 2019 Frequency: 5 times per week Estimated Hrs Per Day: .5 hour per day Rehab Potential: Good Barriers to Learning: Patient had mild cognitive deficits post CVA, however they are mostly resolved Pt/Family Agrees to Plan: Yes Safety Risks/Education Teaching Recipient: Patient, Significant Other Teaching Methods: Demonstration, Discussion Response to Teaching: Verbalize Understanding, Return Demonstration Education Topics Provided: Continued safety and communication of wants/needs Time Speech Therapy Time In: 09:00 Speech Therapy Time Out: 09:30 Total Billed Time: 30 Billed Treatment Time 1VINAYAK [address] Aug 03, 2019 11:36
--- NOTE | 2019-08-03 11:39 | Speech Therapy Daily Note ---
Speech Daily Progress Note Subjective Date Seen by Provider: Aug 03, 2019 Time Seen by Provider: 00:30 Patient was resting in her recliner with ice pack on her knee. Her was present for the first few minutes of the session. Objective Patient completed a series of memory tasks related to her daily needs with 80% given mod cues and/or repetitions. Assessment Assessment Current Status: Good Progress Treatment Plan Continue Plan of Care Speech Short Term Goals Short Term Goals Short Term Goals 1) Patient will complete memory tasks related to her daily needs at 90% or greater. 2) Patient will complete problem solving tasks related to her daily needs at 90% or greater. 3) Patient will complete safety awareness tasks related to her daily needs at 90% or greater. 4) Patient will complete executive function tasks related to her daily needs at 90% or greater. Speech Counterperson Goals Counterperson Goals Patient will improve cognitive-communication necessary for safety and daily living tasks with minimal assist. Speech-Plan Patient/Family Goals Patient/Family Goals: Patient plans on returning home with her upon rehab discharge. Treatment Plan Speech Therapy Treatment Plan: Continue Plan of Care Treatment Duration: Jul 28, 2019 Frequency: 5 times per week Estimated Hrs Per Day: .5 hour per day Rehab Potential: Good Barriers to Learning: Patient has moderate dementia Pt/Family Agrees to Plan: Yes Safety Risks/Education Teaching Recipient: Patient, Significant Other Teaching Methods: Demonstration, Discussion Response to Teaching: Verbalize Understanding, Return Demonstration Education Topics Provided: Memory strategies, safety within her room Time Speech Therapy Time In: 11:00 Speech Therapy Time Out: 11:30 Total Billed Time: 30 Billed Treatment Time 1VINAY[address] Aug 03, 2019 11:39
[2019-08-03] MEDS: lisINopril 10 MG (PRINIVIL) TABLET PO SCH (11:53)
[2019-08-03] MEDS: ACETAMINOPHEN 500 MG TAB (TYLENOL) PO PRN ×2 (13:36→20:54)
[2019-08-03 16:14] VITALS: BP 150/86
--- NOTE | 2019-08-03 19:03 | NUR ---
Started on lisinopril and hypertension has improved. Telemetry d/c.
--- NOTE | 2019-08-03 19:18 | NUR ---
bedside report received from RADHA OKEEFE, assume care of pt
[2019-08-03 20:50] VITALS: BP 160/77
--- NOTE | 2019-08-03 20:53 | NUR ---
refused Colace, miralax & Senokot, v/s [phone]/77 4/10 on numeric scale, Tylenol 500mg given
[2019-08-03] MEDS: ENOXAPARIN 40 MG/0.4 ML (LOVENOX) SYR SC SCH (20:54)
--- NOTE | 2019-08-03 21:45 | NUR ---
resting quietly in bed, pain level 0/10 on CNPI scale
[2019-08-04] MEDS: ACETAMINOPHEN 500 MG TAB (TYLENOL) PO PRN ×2 (01:33→17:25)
--- NOTE | 2019-08-04 01:33 | NUR ---
c/o back ache, pain level 7/10 on numeric scale, Tylenol 500mg given
--- NOTE | 2019-08-04 02:20 | NUR ---
resting quietly up in the chair, pain level 0/10 on CNPI scale
[2019-08-04 06:40] VITALS: BP 160/81
[2019-08-04] MEDS: polyethylene glycoL POWDER 17 GM (MIRALAX) PACK PO SCH ×2 (08:06→21:37)
--- NOTE | 2019-08-04 08:11 | Physical Therapy Daily Note ---
PT Daily Note-Current Subjective Pt agreeable to PT session. Pain Numeric Pain Scale: 0-No Pain Appearance Pt sitting in recliner sleeping upon arrival. easily awakened. At end of session, pt sitting up in recliner with call light, phone and bedside table within reach. Mental Status Patient Orientation: Person, Place, Time, Eyes Open, Situation Attachments: Saline Lock, Oxygen (at night and during naps) Transfers SCALE: Activities may be completed with or without assistive devices. 7-Ekinweugqa-nozhqwj completes the activity by him/herself with no assistance from a helper. 5-Set-up or Clean-up Assistance-helper sets up or cleans up; patient completes activity. [place] assists only prior to or following the activity. 4-Supervision or Touching Assistance-helper provides verbal cues and/or touching/steadying and/or contact guard assistance as patient completes activity. Assistance may be provided throughout the activity or intermittently. 3-Partial/Moderate Assistance-helper does LESS THAN HALF the effort. [place] lifts, holds or supports trunk or limbs, but provides less than half the effort. 2-Substantial/Maximal Assistance-helper does MORE THAN HALF the effort. [place] lifts or holds trunk or limbs and provides more than half the effort. 8-Fthojgzqj-xfnzdl does ALL the effort. Patient does none of the effort to complete the activity. Or, the assistance of 2 or more helpers is required for the patient to complete the activity. If activity was not attempted, code reason: 7-Patient Refused. 9-Not Applicable-not attempted and the patient did not perform the activity before the current illness, exacerbation or injury. 10-Not Attempted due to Environmental Limitations-(lack of equipment, weather restraints, etc.). 88-Not Attempted due to Medical Conditions or Safety Concerns. Roll Left & Right (QC): 6 Sit to Lying (QC): 6 Lying to Sitting/Side of Bed(Q: 6 Sit to Stand (QC): 5 Chair/Eql-uy-Myfmb Xfer(QC): 6 Toilet Transfer (QC): 6 Car Transfer (QC): 5 Weight Bearing Right Lower Extremity: Right Full Weight Bearing Left Lower Extremity: Left Full Weight Bearing Gait Training Does the Patient Walk?: Yes Distance: 200 x2 Walk 10 feet (QC): 4 Walk 50 ft with 2 Turns(QC): 4 Walk 150 ft (QC): 4 Walking 10ft/uneven surface-QC: 4 Gait Persons Needed: 1 Gait Assistive Device: None Began in room with FWW. pt requiring inst to keep both hands on walker for safety and balance instead of carrying clothes in one hand and trying to maneuver walker with the other. No AD rest of therapy session, CGA provided, slight path deviation, slow pace, slight kyphotic, decreased step length and height Wheelchair Training Does the Pt Use a Wheelchair?: No Stair Training Stair Training: Handrails/: 2 handrails #of Steps: 12 1 Step (curb) (QC): 4 4 Steps (QC): 4 12 Steps (QC): 4 Stairs: Pattern: Reciprocal Exercises NuStep Minutes: 12 NuStep Workload: 4 (seat and arms 10) Treatments education, safety, transfers, life activities, gait, toileting, dressing, f unctional mobility, activity tolerance, strength, balance, stairs Assessment Current Status: Good Progress Pt continues to require min inst for safety PT Short Term Goals Short Term Goals Time Frame: Aug 02, 2019 Sit to lyin Lying to sitting on side of be: 4 Sit to stand: 4 (met) Walk 150 feet: 4 (met) PT Human Services Instructor Goals Senior Care Goals PT Senior Care Goals Time Frame: Aug 11, 2019 Roll Left & Right (QC): 6 Sit to Lying (QC): 6 Lying-Sitting on Side/Bed(QC): 6 Sit to Stand (QC): 6 Chair/Fsh-yx-Wmfrz Xfer(QC): 6 Toilet Transfer (QC): 6 Car Transfer (QC): 6 Does the Patient Walk: Yes Walk 10 feet (QC): 6 Walk 50ft with 2 Turns (QC): 6 Walk 150 ft (QC): 6 Walking 10ft on Uneven Surface: 6 1 Step (curb) (QC): 6 4 Steps (QC): 6 12 Steps (QC): 9 Picking up an Object (QC): 4 Does the Pt use WC or Scooter?: No PT Plan Treatment/Plan Treatment Plan: Continue Plan of Care Treatment Plan: Bed Mobility, Education, Functional Activity Sujatha, Functional Strength, Group Therapy, Gait, Safety, Therapeutic Exercise, Transfers Treatment Duration: Aug 11, 2019 Frequency: At least 5 of 7 days/Wk (IRF) Estimated Hrs Per Day: 1.5 hours per day Patient and/or Family Agrees t: Yes Safety Risks/Education Patient Education: Gait Training, Transfer Techniques, Reviewed Precautions (safety), Safety Issues Time/GCodes Time In: 755 Time Out: 855 Total Billed Treatment Time: 60 Total Billed Treatment 1 visit, GT x20 min, EX x12 min, FA x28 min GABRIELE VELASCO PTA Aug 04, 2019 08:11
--- NOTE | 2019-08-04 08:35 | Cardiology Progress Note ---
Subjective Date Seen by Provider: Aug 04, 2019 Time Seen by Provider: 08:33 Subjective/Events-last exam Patient is with PT, no new complaints. Denies any chest pain or dyspnea. Review of Systems General: No Chills, No Night Sweats, No Fatigue, No Malaise, No Appetite, No Ot her HEENT: No Head Aches, No Visual Changes, No Eye Pain, No Ear Pain, No Dysphasia, No Sinus Congestion, No Post Nasal Drip, No Sore Throat, No Other Pulmonary: No Dyspnea, No Cough, No Pleuritic Chest Pain, No Other Cardiovascular: No: Chest Pain, Palpitations, Orthopnea, Paroxysmal Noc. Dyspnea, Edema, Lt Headedness, Other Objective-Cardiology Exam Last Set of Vital Signs Vital Signs 08/04/19 08/04/19 06:40 08:10 Temp 36.3 Pulse 74 Resp 16 B/P (MAP) 160/81 (107) Pulse Ox 93 O2 Delivery Room Air O2 Flow Rate 1.00 Capillary Refill : Less Than 3 Seconds I&O Intake and Output 08/04/19 00:00 Intake Total 1370 ml Balance 1370 ml Intake Oral 1370 ml # Voids 7 # Bowel Movements 1 General: Alert, Oriented X3, Cooperative HEENT: Atraumatic, PERRLA Neck: Supple, No JVD, No Thyromegaly Lungs: Clear to Auscultation, Normal Air Movement Heart: Regular Rate, Normal S1, Normal S2, No Murmurs Abdomen: Normal Bowel Sounds, Soft, No Tenderness, No Hepatosplenomegaly, No Masses Extremities: No Clubbing, No Cyanosis, No Edema, Normal Pulses, No Tenderness/Swelling Skin: No Rashes, No Breakdown, No Significant Lesion Neuro: Normal Gait, Normal Speech, Strength at 5/5 X4 Ext, Normal Tone, Sensation Intact Psych/Mental Status: Mental Status NL, Mood NL A/P-Cardiology Admission Diagnosis Hypertensive encephalopathy TIA HLP DM Assessment/Plan Hypertensive encephalopathy- BP better controlled, but still mildly elevated, I will increase lisinopril to 20 mg daily and monitor blood pressure TIA with expressive aphasia- CT Head and MRI head negative, symptoms are resolved, likely due to uncontrolled HTN. 2D Echo done 07/28/2019 revealed EF 55- 50%, normal left atrial size. Continue on ASA. Status post loop implantation. Continue to monitor Nonobstuctive CAD per cardiac cath done in 2011 HLP- continue to monitor. DM- management per PCP Obesity Patient was seen and evaluated with [place], examination performed, management plan was discussed, agree with the current scribed note, I made few changes to the note using Italic font Patient is feeling better. No new complaint. No chest pain Blood pressure is still elevated Lungs were clear to auscultation, heart is regular I will increase lisinopril to 20 mg daily and monitor tolerance and response Clinical Quality Measures DVT/VTE Risk/Contraindication: Risk Factor Score Per Nursin RFS Level Per Nursing on Admit: 4+=Very High CHARLOTTE OLIVER Aug 04, 2019 08:35 OCTAVIA BEST MD Aug 04, 2019 11:10
[2019-08-04] MEDS: DOCUSATE SODIUM 100 MG (COLACE) CAP PO SCH ×2 (08:57→21:37)
[2019-08-04] MEDS: meTOproloL SUCCINATE 50 MG (TOPROL XL) TAB PO SCH (08:58)
[2019-08-04] MEDS: amLODIPine 5 MG (NORVASC) TAB PO SCH (08:58)
[2019-08-04] MEDS: ASPIRIN E.C. 81 MG (ECOTRIN) TAB PO SCH (08:58)
[2019-08-04] MEDS: lisINopril 10 MG (PRINIVIL) TABLET PO SCH (08:58)
[2019-08-04] MEDS: SENNA W/DOCUSATE (SENOKOT S) TABLET PO SCH ×2 (08:58→21:37)
[2019-08-04] MEDS: hydrALAZINE (APRESOLINE) 25 MG TAB PO SCH ×2 (08:59→20:55)
--- NOTE | 2019-08-04 10:55 | Occupational Ther Daily Note ---
OT Current Status-Daily Note Subjective Pt seen in recliner chair, agreeable to OT. Pt denies pain, though states headache still persists. Mental Status/Objective Patient Orientation: Person, Place, Situation ADL-Treatment Therapy Code Descriptions/Definitions Functional [place] Measure: 0=Not Assessed/NA 4=Minimal Assistance 1=Total Assistance 5=Supervision or Setup 2=Maximal Assistance 6=Modified [place] 3=Moderate Assistance 7=Complete IndependenceSCALE: Activities may be completed with or without assistive devices. 3-Tlftzjserx-vuvrilp completes the activity by him/herself with no assistance from a helper. 5-Set-up or Clean-up Assistance-helper sets up or cleans up; patient completes activity. [place] assists only prior to or following the activity. 4-Supervision or Touching Assistance-helper provides verbal cues and/or touching/steadying and/or contact guard assistance as patient completes activity. Assistance may be provided throughout the activity or intermittently. 3-Partial/Moderate Assistance-helper does LESS THAN HALF the effort. [place] lifts, holds or supports trunk or limbs, but provides less than half the effort. 2-Substantial/Maximal Assistance-helper does MORE THAN HALF the effort. [place] lifts or holds trunk or limbs and provides more than half the effort. 8-Fcoxqcibs-yfqkez does ALL the effort. Patient does none of the effort to complete the activity. Or, the assistance of 2 or more helpers is required for the patient to complete the activity. If activity was not attempted, code reason: 7-Patient Refused. 9-Not Applicable-not attempted and the patient did not perform the activity before the current illness, exacerbation or injury. 10-Not Attempted due to Environmental Limitations-(lack of equipment, weather restraints, etc.). 88-Not Attempted due to Medical Conditions or Safety Concerns. Eating (QC): 6 Oral Hygiene (QC): 6 Bathing Location: L Arm, R Arm, L Upper Leg, R Upper Leg, L Lower Leg (including foot), R Lower Leg (including foot), Chest, Abdomen, Buttocks, Perineal Area Shower/Bathe Self (QC): 4 (SBA in stanceSUP in sit) Upper Body Dressing (QC): 6 (IND) Lower Body Dressing (QC): 4 (SUP) On/Off Footwear: 6 (IND with sock/ footwearTED hose max A (does not plan to wear at home)) Toileting Hygiene (QC): 4 (SUP in stance.) Toilet Transfer (QC): 4 (SBA) Other Treatment Pt completes ADLs in cody as above. While ambulating from sit to buffing wheel raker shower, pt attempts to reach for walker and steps backwards, pt able to self-correct with CGA. Pt agrees she "may have felt dizzy/ lightheaded," though unable to state exact happenings. Pt's 02 checked in sit- pt at 93% without 02. Pt comple shay standing bending/ shoe doffing/ donning, 02 checked again: pt at 80%, able to recoop after 30 seconds rest. Pt instructed to don 02 while in bending/ increased activity. Pt decides to don in sit, left in recliner chair, all needs met, chair alarm on (pt educated on use of chair alarm, pt had earlier discussed taking self from toilet back to recliner). Education OT Patient Education: Correct positioning, Energy conservation, Progress toward Goal/Update tx plan, Purpose of tx/functional activities, Safety issues, Transfer techniques Teaching Recipient: Patient Teaching Methods: Demonstration, Discussion Response to Teaching: Verbalize Understanding, Return Demonstration OT Acls Specialist Goals Fpc Goals Time Frame: Aug 13, 2019 Eating (QC): 6 (met) Oral Hygiene (QC): 6 Toileting Hygiene (QC): 6 Shower/Bathe Self (QC): 6 Upper Body Dressing (QC): 6 Lower Body Dressing (QC): 6 On/Off Footwear (QC): 6 Additional Goals: 1-Demonstrate ADL Tasks, 2-Verbalize Understanding, 3- ImproveStrength/Sujatha 1=Demonstrate adherence to instructed precautions during ADL tasks. 2=Patient will verbalize/demonstrate understanding of assistive devices/modifications for ADL. 3=Patient will improve strength/tolerance for activity to enable patient to perform ADL's. OT Education/Plan Problem List/Assessment Assessment: Decreased Activ Tolerance, Decreased UE Strength, Impaired Funct Balance, Impaired I ADL's, Impaired Self-Care Skills Discharge Recommendations Plan/Recommendations: Continue POC Therapy Discharge Recommendati: Home & Family Treatment Plan/Plan of Care Treatment,Training & Education: Yes Patient would benefit from OT for education, treatment and training to promote independence in ADL's, mobility, safety and/or upper extremity function for ADL's. Plan of Care: ADL Retraining, Functional Mobility, Group Exercise/Act as Ind, UE Funct Exercise/Act Treatment Duration: Aug 13, 2019 Frequency: At least 5 of 7 days/Wk (IRF) Estimated Hrs Per Day: 1.5 hours per day Agreement: Yes Rehab Potential: Good Time/GCodes Start Time: 09:30 Stop Time: 10:30 Total Time Billed (hr/min): 60 Billed Treatment Time 1, ADL 4 (60) MICHELLE ESQUEDA OTR Aug 04, 2019 10:55
--- NOTE | 2019-08-04 11:01 | Speech Therapy Daily Note ---
Speech Daily Progress Note Subjective Date Seen by Provider: Aug 04, 2019 Time Seen by Provider: 00:30 Patient was sitting in her chair following PT. She stated she walked to the gym without her walker with the PT. Objective Patient completed a series of problem solving tasks related to her needs at home with 90% given min verbal cues. Assessment Assessment Current Status: Good Progress Treatment Plan Continue Plan of Care Speech Short Term Goals Short Term Goals Short Term Goals 1) Patient will complete memory tasks related to her daily needs at 90% or greater. 2) Patient will complete problem solving tasks related to her daily needs at 90% or greater. 3) Patient will complete safety awareness tasks related to her daily needs at 90% or greater. 4) Patient will complete executive function tasks related to her daily needs at 90% or greater. 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 Speech-Plan Patient/Family Goals Patient/Family Goals: Patient plans on returning to her home where she lives with her upon rehab discharge. Treatment Plan Speech Therapy Treatment Plan: Continue Plan of Care Treatment Duration: Jul 28, 2019 Frequency: 5 times per week Estimated Hrs Per Day: .5 hour per day Rehab Potential: Good Barriers to Learning: Patient's recent CVA Pt/Family Agrees to Plan: Yes Safety Risks/Education Teaching Recipient: Patient Teaching Methods: Demonstration, Discussion Response to Teaching: Verbalize Understanding, Return Demonstration Education Topics Provided: Continued safety while on the ARU as well as at home. Time Speech Therapy Time In: 09:00 Speech Therapy Time Out: 09:30 Total Billed Time: 30 Billed Treatment Time 1, VICKI Day Aug 04, 2019 11:00
--- NOTE | 2019-08-04 11:11 | PM&R Progress Note ---
Subjective HPI/CC On Admission Date Seen by Provider: Aug 04, 2019 Time Seen by Provider: 11:00 Subjective/Events-last exam BP 140/70 much improved since adding more meds Loop recorder in place so DC Tely yesterday Roe tolerated well No pain is reported O2 maintained prn Tylenol given for vague pain Checked meds and labs Reviewed therapy notes Conferred with ice puller of Systems General: Fatigue Pulmonary: Dyspnea Neurological: Weakness Objective Exam Vital Signs Vital Signs Date Time Temp Pulse Resp B/P (MAP) Pulse Ox O2 Delivery O2 Flow Rate FiO2 08/04/19 08:10 Room Air 08/04/19 06:40 36.3 74 16 160/81 (107) 93 1.00 Capillary Refill : Less Than 3 Seconds General Appearance: No Apparent Distress, WD/WN, Chronically ill, Obese HEENT: PERRL/EOMI, Normal ENT Inspection, Pharynx Normal Neck: Non Tender, Supple Respiratory: Chest Non Tender, Lungs Clear, Normal Breath Sounds, No Accessory Muscle Use, No Respiratory Distress Cardiovascular: Regular Rate, Rhythm, No Edema, No Gallop, No JVD, No Murmur Gastrointestinal: Normal Bowel Sounds, No Organomegaly, No Pulsatile Mass, Non Tender, Soft Rectal: Deferred Back: Normal Inspection, No CVA Tenderness, No Vertebral Tenderness Extremity: Normal Capillary Refill, Normal Inspection, Normal Range of Motion, Non Tender, No Calf Tenderness Neurologic/Psychiatric: Alert, Oriented x3, traffic control signaler II-XII Norm as Tested, Abnormal Gait, Depressed Affect, Motor Weakness (generalized) Skin: Normal Color, Warm/Dry Results/Procedures Lab Patient resulted labs reviewed. FIM Transfers Therapy Code Descriptions/Definitions Functional [place] Measure: 0=Not Assessed/NA 4=Minimal Assistance 1=Total Assistance 5=Supervision or Setup 2=Maximal Assistance 6=Modified [place] 3=Moderate Assistance 7=Complete IndependenceSCALE: Activities may be completed with or without assistive devices. 5-Rrjikkiqmt-eduwzxu completes the activity by him/herself with no assistance from a helper. 5-Set-up or Clean-up Assistance-helper sets up or cleans up; patient completes activity. [place] assists only prior to or following the activity. 4-Supervision or Touching Assistance-helper provides verbal cues and/or touching/steadying and/or contact guard assistance as patient completes activity. Assistance may be provided throughout the activity or intermittently. 3-Partial/Moderate Assistance-helper does LESS THAN HALF the effort. [place] lifts, holds or supports trunk or limbs, but provides less than half the effort. 2-Substantial/Maximal Assistance-helper does MORE THAN HALF the effort. [place] lifts or holds trunk or limbs and provides more than half the effort. 6-Bawalieot-besnlv does ALL the effort. Patient does none of the effort to complete the activity. Or, the assistance of 2 or more helpers is required for the patient to complete the activity. If activity was not attempted, code reason: 7-Patient Refused. 9-Not Applicable-not attempted and the patient did not perform the activity before the current illness, exacerbation or injury. 10-Not Attempted due to Environmental Limitations-(lack of equipment, weather restraints, etc.). 88-Not Attempted due to Medical Conditions or Safety Concerns. Roll Left to Right (QC): 6 Sit to Lying (QC): 6 Sit to Stand (QC): 5 Chair/Lcp-wz-Wuizu Xfer(QC): 6 Car Transfer (QC): 5 Gait Training Does the Patient Walk?: Yes Distance: 250 x2, 300 Walk 10 feet (QC): 4 Walk 50 ft with 2 Turns(QC): 4 Walk 150 ft (QC): 4 Walking 10ft/uneven surface-QC: 4 Gait Persons Needed: 1 Gait Assistive Device: None Wheelchair Training Does the Pt Use a Wheelchair?: No Stair Training Stair Training: Handrails/: 2 handrails #of Steps: 8 1 Step (curb) (QC): 4 4 Steps (QC): 4 12 Steps (QC): 88 Stairs: Pattern: Step to Balance Picking up an Object (QC): 88 ADL-Treatment Eating (QC): 6 Oral Hygiene (QC): 6 Bathing Location: L Arm, R Arm, L Upper Leg, R Upper Leg, L Lower Leg (includi ng foot), R Lower Leg (including foot), Chest, Abdomen, Buttocks, Perineal Area Shower/Bathe Self (QC): 4 (SBA in stanceSUP in sit) Upper Body Dressing (QC): 6 (IND) Lower Body Dressing (QC): 4 (SUP) On/Off Footwear (QC): 6 (IND with sock/ footwearTED hose max A (does not plan to wear at home)) Toileting Hygiene (QC): 4 (SUP in stance.) Toilet Transfer (QC): 4 (SBA) Assessment/Plan Assessment and Plan Assess & Plan/Chief Complaint Assessment: HTN encephalopathy PAF? off Coumadin and now loop recorder placed 08/02/19 and placed on OAC Eliquis HTN OOC improving with more meds Memory loss Hypoxia at night? Plan: Adding BP meds Dr Rahman appreciated Loop recorder OAC today IRF protocol Wean O2 Hydralazine 50mg BID along with Norvasc is working well (1) Hypertensive encephalopathy Status: Acute (2) Non-insulin dependent type 2 diabetes mellitus Status: Chronic (3) Essential (primary) hypertension Status: Chronic (4) CVA (cerebral vascular accident) Status: Acute (5) Hypothyroidism (6) GERD (gastroesophageal reflux disease) (7) Anticoagulant prescribed (8) Status post placement of implantable loop recorder CARISSA PETERSON DO Aug 04, 2019 11:11
[2019-08-04] MEDS ORDERED: lisINopril 10 MG (PRINIVIL) TABLET PO NR (11:15)
--- NOTE | 2019-08-04 15:06 | Therapy Group Daily Note ---
Therapy Daily Group Note Patient Education Topic Other List Below (Social Distancing) Exercises LE Seated Exercise, UE Exercise Session Ratio (pt:therapist): 3:1 Goal of Session: Other (list) (Understanding and using Social Distancing appropriately) Goal Met for this Session: Yes Pt Benefit of Group: Contributions to Others, F/U Use of Strategies @Home, I ncreased Functional Safety, Increased Functional Strength, Improved Cognition, Recognition of Peers, Socialization Other/Notes Pt ambulated to [facility] using [facility]WW for OT/PT group. Group consisted of introductions (name, place living, historical memory), socialization, UE/LE seated exercises and educational topic over social distancing. Pt introduced s elf appropriately and actively listened to peers. Pt able to lead one exercise and complete other exercises, 1 set 10 reps. Pt acknowledged understanding of educational topic by verbalizing own strategies and opinion. After therapy, pt sitting in recliner with call light/phone in reach. All needs met. Start Time: 13:00 Stop Time: 14:10 Total Billed Treatment Time: 70 Total Billed Treatment 1, GRP HERNAN KATZ PIN DRAFTER OPERATOR Aug 04, 2019 15:06
[2019-08-04 18:00] VITALS: BP 168/83
[2019-08-04] MEDS: ENOXAPARIN 40 MG/0.4 ML (LOVENOX) SYR SC SCH (20:55)
[2019-08-05] MEDS: ACETAMINOPHEN 500 MG TAB (TYLENOL) PO PRN (04:02)
[2019-08-05 06:00] VITALS: BP 163/81
[2019-08-05] MEDS: ASPIRIN E.C. 81 MG (ECOTRIN) TAB PO SCH (08:32)
[2019-08-05] MEDS: amLODIPine 5 MG (NORVASC) TAB PO SCH (08:32)
[2019-08-05] MEDS: meTOproloL SUCCINATE 50 MG (TOPROL XL) TAB PO SCH (08:32)
[2019-08-05] MEDS: hydrALAZINE (APRESOLINE) 25 MG TAB PO SCH ×2 (08:32→20:35)
[2019-08-05] MEDS: lisINopril 20 MG (PRINIVIL) TABLET PO SCH (08:32)
--- NOTE | 2019-08-05 08:38 | Cardiology Progress Note ---
Subjective Date Seen by Provider: Aug 05, 2019 Time Seen by Provider: 08:37 Subjective/Events-last exam Patient is sitting up in chair, denies any chest pain or dyspnea. Review of Systems General: No Chills, No Night Sweats, No Fatigue, No Malaise, No Appetite, No Other HEENT: No Head Aches, No Visual Changes, No Eye Pain, No Ear Pain, No Dysphasia, No Sinus Congestion, No Post Nasal Drip, No Sore Throat, No Other Pulmonary: Dyspnea; No Cough, No Pleuritic Chest Pain, No Other Cardiovascular: Edema; No: Chest Pain, Palpitations, Orthopnea, Paroxysmal Noc. Dyspnea, Lt Headedness, Other Objective-Cardiology Exam Last Set of Vital Signs Vital Signs 08/05/19 08/05/19 06:00 09:00 Temp 36.3 Pulse 75 Resp 18 B/P (MAP) 163/81 (108) Pulse Ox 94 O2 Delivery Nasal Cannula O2 Flow Rate 1.00 Capillary Refill : Less Than 3 Seconds I&O Intake and Output 08/05/19 00:00 Intake Total 1240 ml Balance 1240 ml Intake Oral 1240 ml # Voids 7 # Bowel Movements 1 General: Alert, Oriented X3, Cooperative HEENT: Atraumatic, PERRLA Neck: Supple, No JVD, No Thyromegaly Lungs: Clear to Auscultation, Normal Air Movement Heart: Regular Rate, Normal S1, Normal S2, No Murmurs Abdomen: Normal Bowel Sounds, Soft, No Tenderness, No Hepatosplenomegaly, No Masses Extremities: No Clubbing, No Cyanosis, No Edema, Normal Pulses, No Tenderness/Swelling Skin: No Rashes, No Breakdown, No Significant Lesion Neuro: Normal Gait, Normal Speech, Strength at 5/5 X4 Ext, Normal Tone, Sensation Intact Psych/Mental Status: Mental Status NL, Mood NL A/P-Cardiology Admission Diagnosis Hypertensive encephalopathy TIA P DM Assessment/Plan Hypertensive encephalopathy- BP better controlled, but still mildly elevated, lisinopril increased to 20mg, continue to monitor. TIA with expressive aphasia- CT Head and MRI head negative, symptoms are resolved, likely due to uncontrolled HTN. 2D Echo done 07/28/2019 revealed EF 55- 50%, normal left atrial size. Continue on ASA. Status post loop implantation. Continue to monitor Nonobstuctive CAD per cardiac cath done in 2011 HLP- continue to monitor. DM- management per PCP Obesity Patient was seen and evaluated with [place], examination performed, management plan was discussed, agree with the current scribed note, I made few changes to the note using Italic font Patient was sitting in a chair comfortably, denied any chest pain or shortness of breath Blood pressure is better controlled Discussed management plan recommended continuing current medication monitor blood pressure closely. Arrangement for follow-up as an outpatient Clinical Quality Measures DVT/VTE Risk/Contraindication: Risk Factor Score Per Nursin RFS Level Per Nursing on Admit: 4+=Very High CHARLOTTE OLIVER Aug 05, 2019 8:38 am OCTAVIA BEST MD Aug 05, 2019 10:29 am
[2019-08-05] MEDS: SENNA W/DOCUSATE (SENOKOT S) TABLET PO SCH ×2 (09:00→21:09)
[2019-08-05] MEDS: DOCUSATE SODIUM 100 MG (COLACE) CAP PO SCH ×2 (09:00→21:09)
[2019-08-05] MEDS: polyethylene glycoL POWDER 17 GM (MIRALAX) PACK PO SCH ×2 (09:00→21:09)
--- NOTE | 2019-08-05 10:25 | Occupational Ther Daily Note ---
OT Current Status-Daily Note Subjective Pt seen in recliner chair, sleeping. Pt wakes with increased volume. Pt agrees to OT tx with QCs gathered. Pt expresses no pain, headache gone. Pt states slept well last night. Mental Status/Objective Patient Orientation: Person, Place, Time, Situation ADL-Treatment Therapy Code Descriptions/Definitions Functional [place] Measure: 0=Not Assessed/NA 4=Minimal Assistance 1=Total Assistance 5=Supervision or Setup 2=Maximal Assistance 6=Modified [place] 3=Moderate Assistance 7=Complete IndependenceSCALE: Activities may be completed with or without assistive devices. 6-Qspkcngzqm-zojaqli completes the activity by him/herself with no assistance from a helper. 5-Set-up or Clean-up Assistance-helper sets up or cleans up; patient completes activity. [place] assists only prior to or following the activity. 4-Supervision or Touching Assistance-helper provides verbal cues and/or touching/steadying and/or contact guard assistance as patient completes activity. Assistance may be provided throughout the activity or intermittently. 3-Partial/Moderate Assistance-helper does LESS THAN HALF the effort. [place] lifts, holds or supports trunk or limbs, but provides less than half the effort. 2-Substantial/Maximal Assistance-helper does MORE THAN HALF the effort. [place] lifts or holds trunk or limbs and provides more than half the effort. 8-Btlgyxtlh-tpdpti does ALL the effort. Patient does none of the effort to complete the activity. Or, the assistance of 2 or more helpers is required for the patient to complete the activity. If activity was not attempted, code reason: 7-Patient Refused. 9-Not Applicable-not attempted and the patient did not perform the activity befo re the current illness, exacerbation or injury. 10-Not Attempted due to Environmental Limitations-(lack of equipment, weather re straints, etc.). 88-Not Attempted due to Medical Conditions or Safety Concerns. Eating (QC): 6 (IND) Oral Hygiene (QC): 6 (IND at sink) Shower/Bathe Self (QC): 4 (SUP in stance at sink) Upper Body Dressing (QC): 6 (IND, gathers clothing) Lower Body Dressing (QC): 4 (SUP) On/Off Footwear: 6 (IND socks/ shoes with increased time.) Toileting Hygiene (QC): 6 (IND) Toilet Transfer (QC): 6 (IND standard toilet with use of 2WW) Other Treatment Pt agrees to sponge bath- states she typically takes sponge baths, does not utilize tub/shower unless special event. Pt completes in stance to replicate home, pt's 02 at 85% with room air, completes rest of activity in stance with 02 (1 L) and maintains 90% or higher. Pt repeats self 2x through session. Pt ambulates to therapy gym, completes 5 min max resist arm bike with one rest b reak. Pt maintains breath, educated on strength training. Pt denies HEP education, plans to complete daily tasks. Pt denies any concerns for return home. Pt return to room, recliner with legs elevated, call light in reach, all needs met, chair alarm on. Education OT Patient Education: Correct positioning, Exercise program, Modified ADL techniques, Purpose of tx/functional activities, Safety issues Teaching Recipient: Patient Teaching Methods: Demonstration, Discussion Response to Teaching: Verbalize Understanding, Return Demonstration OT Dietetic Tech Goals Dietetic Tech Goals Time Frame: Aug 13, 2019 Eating (QC): 6 (met) Oral Hygiene (QC): 6 (met) Toileting Hygiene (QC): 6 (met) Shower/Bathe Self (QC): 6 Upper Body Dressing (QC): 6 (met) Lower Body Dressing (QC): 6 On/Off Footwear (QC): 6 (met) Additional Goals: 1-Demonstrate ADL Tasks, 2-Verbalize Understanding, 3- ImproveStrength/Sujatha 1=Demonstrate adherence to instructed precautions during ADL tasks. 2=Patient will verbalize/demonstrate understanding of assistive devices/modifications for ADL. 3=Patient will improve strength/tolerance for activity to enable patient to perform ADL's. OT Education/Plan Problem List/Assessment Assessment: Decreased Activ Tolerance, Edema, Impaired I ADL's, Impaired Self- Care Skills Discharge Recommendations Plan/Recommendations: Continue POC Therapy Discharge Recommendati: Home & Family Treatment Plan/Plan of Care Treatment,Training & Education: Yes Patient would benefit from OT for education, treatment and training to promote independence in ADL's, mobility, safety and/or upper extremity function for ADL's. Plan of Care: ADL Retraining, Functional Mobility, Group Exercise/Act as Ind, UE Funct Exercise/Act Treatment Duration: Aug 13, 2019 Frequency: At least 5 of 7 days/Wk (IRF) Estimated Hrs Per Day: 1.5 hours per day Agreement: Yes Rehab Potential: Good Time/GCodes Start Time: 09:15 Stop Time: 10:30 Total Time Billed (hr/min): 75 Billed Treatment Time 1, ADL 4 (60), EX (15)= 75 MICHELLE ESQUEDA OTR Aug 05, 2019 10:25
--- NOTE | 2019-08-05 11:08 | Physical Therapy Daily Note ---
PT Daily Note-Current Subjective Pt agreeable to PT session. States she is very excited about going home tomorrow, misses her dog and . Pain Numeric Pain Scale: 0-No Pain Comment: states she was having pain earlier behind neck but gone now Appearance Upon arrival, pt sitting up in recliner awake and alert. At end of session, pt sitting up in recliner with call light, phone and bedside table within reach, chair alarm activated Mental Status Patient Orientation: Person, Place, Time, Eyes Open, Situation Attachments: Oxygen (at night and during naps) Transfers SCALE: Activities may be completed with or without assistive devices. 5-Yzupjtoubd-eojstgc completes the activity by him/herself with no assistance from a helper. 5-Set-up or Clean-up Assistance-helper sets up or cleans up; patient completes activity. [place] assists only prior to or following the activity. 4-Supervision or Touching Assistance-helper provides verbal cues and/or touching/steadying and/or contact guard assistance as patient completes activity. Assistance may be provided throughout the activity or intermittently. 3-Partial/Moderate Assistance-helper does LESS THAN HALF the effort. [place] lifts, holds or supports trunk or limbs, but provides less than half the effort. 2-Substantial/Maximal Assistance-helper does MORE THAN HALF the effort. [place] lifts or holds trunk or limbs and provides more than half the effort. 9-Cwqnuinjd-dvnsxt does ALL the effort. Patient does none of the effort to complete the activity. Or, the assistance of 2 or more helpers is required for the patient to complete the activity. If activity was not attempted, code reason: 7-Patient Refused. 9-Not Applicable-not attempted and the patient did not perform the activity before the current illness, exacerbation or injury. 10-Not Attempted due to Environmental Limitations-(lack of equipment, weather restraints, etc.). 88-Not Attempted due to Medical Conditions or Safety Concerns. Roll Left & Right (QC): 6 Sit to Lying (QC): 6 Lying to Sitting/Side of Bed(Q: 6 Sit to Stand (QC): 6 Chair/Joo-bw-Oztbm Xfer(QC): 6 Toilet Transfer (QC): 6 Car Transfer (QC): 6 Weight Bearing Right Lower Extremity: Right Full Weight Bearing Left Lower Extremity: Left Full Weight Bearing Gait Training Does the Patient Walk?: Yes Distance: 200 x2 Walk 10 feet (QC): 6 Walk 50 ft with 2 Turns(QC): 6 Walk 150 ft (QC): 6 Walking 10ft/uneven surface-QC: 6 Gait Persons Needed: 0 Gait Assistive Device: FWW fair pace, step length and height, slight kyphotic, no LOB or unsteadiness. Pt understands instruction to continue use of FWW for now until stronger and balance improves Wheelchair Training Does the Pt Use a Wheelchair?: No Stair Training Stair Training: Handrails/: 2 handrails #of Steps: 12 1 Step (curb) (QC): 6 4 Steps (QC): 6 12 Steps (QC): 6 Stairs: Pattern: Reciprocal no LOB or unsteadiness, fair to slow pace Balance Picking up an Object (QC): 6 (with therapist rrt in standing) Exercises NuStep Minutes: 15 NuStep Workload: 4 Treatments education, safety, transfers, bed mobility, strength, balance, gait, activity tolerance, stairs, functional mobility Assessment Current Status: Good Progress pt will be ready for discharge home tomorrow with . No unsteadiness or LOB episodes with use of walker. Strength, activity tolerancde and balance have improved PT Short Term Goals Short Term Goals Time Frame: Aug 02, 2019 Sit to lyin Lying to sitting on side of be: 4 Sit to stand: 4 (met) Walk 150 feet: 4 (met) PT Fdc Goals Fdc Goals PT Fdc Goals Time Frame: Aug 11, 2019 Roll Left & Right (QC): 6 Sit to Lying (QC): 6 Lying-Sitting on Side/Bed(QC): 6 Sit to Stand (QC): 6 Chair/Osa-vu-Qlzur Xfer(QC): 6 Toilet Transfer (QC): 6 Car Transfer (QC): 6 Does the Patient Walk: Yes Walk 10 feet (QC): 6 Walk 50ft with 2 Turns (QC): 6 Walk 150 ft (QC): 6 Walking 10ft on Uneven Surface: 6 1 Step (curb) (QC): 6 4 Steps (QC): 6 12 Steps (QC): 9 Picking up an Object (QC): 4 Does the Pt use WC or Scooter?: No PT Plan Treatment/Plan Treatment Plan: Continue Plan of Care Treatment Plan: Bed Mobility, Education, Functional Activity Sujatha, Functional Strength, Group Therapy, Gait, Safety, Therapeutic Exercise, Transfers Treatment Duration: Aug 11, 2019 Frequency: At least 5 of 7 days/Wk (IRF) Estimated Hrs Per Day: 1.5 hours per day Patient and/or Family Agrees t: Yes Safety Risks/Education Patient Education: Gait Training, Transfer Techniques, Steps, Safety Issues Teaching Recipient: Patient Teaching Methods: Discussion Response to Teaching: Verbalize Understanding Discharge Recommendations Therapy Discharge Recommendati: Home & Family Equpiment Recommendations-D/C: Front Wheeled Walker Time/GCodes Time In: 1100 Time Out: 1200 Total Billed Treatment Time: 60 Total Billed Treatment 1 visit, GT x30 min, FA x15 min, EX x15 min GABRIELE VELASCO PTA Aug 05, 2019 11:08
--- NOTE | 2019-08-05 12:53 | PM&R Progress Note ---
Subjective HPI/CC On Admission Date Seen by Provider: Aug 05, 2019 Time Seen by Provider: 09:00 Subjective/Events-last exam BP much improved since adding more meds Loop recorder in place and doing well ASA maintained No pain is reported O2will be weaned Tylenol given for vague pain Checked meds and labs Reviewed therapy notes Conferred with photographic equipment technician of Systems General: Fatigue Neurological: Weakness Objective Exam Vital Signs Vital Signs Date Time Temp Pulse Resp B/P (MAP) Pulse Ox O2 Delivery O2 Flow Rate FiO2 08/05/19 18:00 36.8 70 16 114/67 (83) 92 Room Air 08/05/19 09:00 1.00 Capillary Refill : Less Than 3 Seconds General Appearance: No Apparent Distress, WD/WN, Chronically ill, Obese HEENT: PERRL/EOMI, Normal ENT Inspection, Pharynx Normal Neck: Non Tender, Supple Respiratory: Chest Non Tender, Lungs Clear, Normal Breath Sounds, No Accessory Muscle Use, No Respiratory Distress Cardiovascular: Regular Rate, Rhythm, No Edema, No Gallop, No JVD, No Murmur Gastrointestinal: Normal Bowel Sounds, No Organomegaly, No Pulsatile Mass, Non Tender, Soft Rectal: Deferred Back: Normal Inspection, No CVA Tenderness, No Vertebral Tenderness Extremity: Normal Capillary Refill, Normal Inspection, Normal Range of Motion, Non Tender, No Calf Tenderness Neurologic/Psychiatric: Alert, Oriented x3, abe teacher II-XII Norm as Tested, Abnormal Gait, Depressed Affect, Motor Weakness (generalized) Skin: Normal Color, Warm/Dry Results/Procedures Lab Patient resulted labs reviewed. FIM Transfers Therapy Code Descriptions/Definitions Functional [place] Measure: 0=Not Assessed/NA 4=Minimal Assistance 1=Total Assistance 5=Supervision or Setup 2=Maximal Assistance 6=Modified [place] 3=Moderate Assistance 7=Complete IndependenceSCALE: Activities may be completed with or without assistive devices. 1-Drhxyntkpb-rksrjpf completes the activity by him/herself with no assistance from a helper. 5-Set-up or Clean-up Assistance-helper sets up or cleans up; patient completes activity. [place] assists only prior to or following the activity. 4-Supervision or Touching Assistance-helper provides verbal cues and/or touching/steadying and/or contact guard assistance as patient completes act ivity. Assistance may be provided throughout the activity or intermittently. 3-Partial/Moderate Assistance-helper does LESS THAN HALF the effort. [place] lifts, holds or supports trunk or limbs, but provides less than half the effort. 2-Substantial/Maximal Assistance-helper does MORE THAN HALF the effort. [place] lifts or holds trunk or limbs and provides more than half the effort. 9-Bjeclvzja-fijraw does ALL the effort. Patient does none of the effort to complete the activity. Or, the assistance of 2 or more helpers is required for the patient to complete the activity. If activity was not attempted, code reason: 7-Patient Refused. 9-Not Applicable-not attempted and the patient did not perform the activity before the current illness, exacerbation or injury. 10-Not Attempted due to Environmental Limitations-(lack of equipment, weather restraints, etc.). 88-Not Attempted due to Medical Conditions or Safety Concerns. Roll Left to Right (QC): 6 Sit to Lying (QC): 6 Sit to Stand (QC): 6 Chair/Zqh-qq-Joiua Xfer(QC): 6 Car Transfer (QC): 6 Gait Training Does the Patient Walk?: Yes Distance: 200 x2 Walk 10 feet (QC): 6 Walk 50 ft with 2 Turns(QC): 6 Walk 150 ft (QC): 6 Walking 10ft/uneven surface-QC: 6 Gait Persons Needed: 0 Gait Assistive Device: FWW Wheelchair Training Does the Pt Use a Wheelchair?: No Stair Training Stair Training: Handrails/: 2 handrails #of Steps: 12 1 Step (curb) (QC): 6 4 Steps (QC): 6 12 Steps (QC): 6 Stairs: Pattern: Reciprocal Balance Picking up an Object (QC): 6 (with cider press operator in standing) ADL-Treatment Eating (QC): 6 (IND) Oral Hygiene (QC): 6 (IND at sink) Bathing Location: L Arm, R Arm, L Upper Leg, R Upper Leg, L Lower Leg (including foot), R Lower Leg (including foot), Chest, Abdomen, Buttocks, Perineal Area Shower/Bathe Self (QC): 4 (SUP in stance at sink) Upper Body Dressing (QC): 6 (IND, gathers clothing) Lower Body Dressing (QC): 4 (SUP) On/Off Footwear (QC): 6 (IND socks/ shoes with increased time.) Toileting Hygiene (QC): 6 (IND) Toilet Transfer (QC): 6 (IND standard toilet with use of 2WW) Assessment/Plan Assessment and Plan Assess & Plan/Chief Complaint Assessment: HTN encephalopathy PAF? off Coumadin and now loop recorder placed 08/02/19 and placed on ASA HTN OOC improving with more meds Memory loss Hypoxia at night? Plan: Adding BP meds Dr Rahman appreciated Loop recorder OAC today IRF protocol Wean O2 Hydralazine 50mg BID along with Norvasc is working well DC tomorrow (1) Hypertensive encephalopathy Status: Acute (2) Non-insulin dependent type 2 diabetes mellitus Status: Chronic (3) Essential (primary) hypertension Status: Chronic (4) CVA (cerebral vascular accident) Status: Acute (5) Hypothyroidism (6) GERD (gastroesophageal reflux disease) (7) Anticoagulant prescribed (8) Status post placement of implantable loop recorder CARISSA PETERSON DO Aug 05, 2019 12:53
--- NOTE | 2019-08-05 13:22 | Speech Therapy Daily Note ---
Speech Daily Progress Note Subjective Date Seen by Provider: Aug 05, 2019 Time Seen by Provider: 00:30 Patient stated she was anxious to finally be going home. Objective Patient completed a series of problem solving tasks related to her daily routine upon her return home at 90% without cues. Assessment Assessment Current Status: Good Progress Treatment Plan Discontinue ST, Goals Met Speech Short Term Goals Short Term Goals Short Term Goals 1) Patient will complete memory tasks related to her daily needs at 90% or greater. 2) Patient will complete problem solving tasks related to her daily needs at 90% or greater. 3) Patient will complete safety awareness tasks related to her daily needs at 90% or greater. 4) Patient will complete executive function tasks related to her daily needs at 90% or greater. Speech Long-Term Goals Long-Term Goals Patient will improve cognitive-communication necessary for safety and daily l iving tasks with minimal assist. Speech-Plan Patient/Family Goals Patient/Family Goals: Patient will be discharging to her home where she lives with her . Treatment Plan Speech Therapy Treatment Plan: Discontinue ST, Goals Met Treatment Duration: Jul 28, 2019 Frequency: 5 times per week Estimated Hrs Per Day: .5 hour per day Rehab Potential: Good Barriers to Learning: Patient initially had cognitive deficits post CVA, however these have resolved. Pt/Family Agrees to Plan: Yes Safety Risks/Education Teaching Recipient: Patient Teaching Methods: Demonstration, Discussion Response to Teaching: Verbalize Understanding, Return Demonstration Education Topics Provided: Continued safety and problem solving upon her return home. Time Speech Therapy Time In: 10:30 Speech Therapy Time Out: 11:00 Total Billed Time: 30 Billed Treatment Time 1, SLTS No QUALITY CODES: EXPRESSION OF IDEAS/WANTS: 4 UNDERSTANDING VERBAL CONTENT: 4 BRIEF INTERVIEW MENTAL STATUS: YES REPETITION OF 3 WORDS: 3 TEMPORAL ORIENTATION: YEAR: CORRECT, MONTH:CORRECT, DAY: CORRECT RECALL SOCK: YES, COLOR: YES, BED: YES MEMORY/RECALL ABILITY: SEASON, LOCATION OF ROOM, STAFF NAMES, THAT SHE IS IN THE HOSPITAL VICKI GUZMÁN Aug 05, 2019 13:22
--- NOTE | 2019-08-05 14:04 | Physical Therapy Daily Note ---
PT Daily Note-Current Subjective Agrees to PT. Going home tomorrow. Transfers SCALE: Activities may be completed with or without assistive devices. 2-Ofwcptaseo-kekjbtq completes the activity by him/herself with no assistance from a helper. 5-Set-up or Clean-up Assistance-helper sets up or cleans up; patient completes activity. [place] assists only prior to or following the activity. 4-Supervision or Touching Assistance-helper provides verbal cues and/or touching/steadying and/or contact guard assistance as patient completes activity. Assistance may be provided throughout the activity or intermittently. 3-Partial/Moderate Assistance-helper does LESS THAN HALF the effort. [place] l ifts, holds or supports trunk or limbs, but provides less than half the effort. 2-Substantial/Maximal Assistance-helper does MORE THAN HALF the effort. [place] lifts or holds trunk or limbs and provides more than half the effort. 4-Bicpbbknv-ifxhff does ALL the effort. Patient does none of the effort to complete the activity. Or, the assistance of 2 or more helpers is required for t he patient to complete the activity. If activity was not attempted, code reason: 7-Patient Refused. 9-Not Applicable-not attempted and the patient did not perform the activity before the current illness, exacerbation or injury. 10-Not Attempted due to Environmental Limitations-(lack of equipment, weather restraints, etc.). 88-Not Attempted due to Medical Conditions or Safety Concerns. Weight Bearing Right Lower Extremity: Right Full Weight Bearing Left Lower Extremity: Left Full Weight Bearing Treatments Pt is mod indep with functional sit to stand transfers from recliner and standard chair. Pt ambulated 250 ft x 2 with FWW mod indep. Pt in recliner post treatment with chair alarm activated and needs met. Assessment Current Status: Good Progress Pt tolerated treatment well. no safety concerns noted this date. PT Short Term Goals Short Term Goals Time Frame: Aug 02, 2019 Sit to lyin Lying to sitting on side of be: 4 Sit to stand: 4 (met) Walk 150 feet: 4 (met) PT Fci Goals Fci Goals PT Fci Goals Time Frame: Aug 11, 2019 Roll Left & Right (QC): 6 Sit to Lying (QC): 6 Lying-Sitting on Side/Bed(QC): 6 Sit to Stand (QC): 6 Chair/Jma-kd-Hvvmy Xfer(QC): 6 Toilet Transfer (QC): 6 Car Transfer (QC): 6 Does the Patient Walk: Yes Walk 10 feet (QC): 6 Walk 50ft with 2 Turns (QC): 6 Walk 150 ft (QC): 6 Walking 10ft on Uneven Surface: 6 1 Step (curb) (QC): 6 4 Steps (QC): 6 12 Steps (QC): 9 Picking up an Object (QC): 4 Does the Pt use WC or Scooter?: No PT Plan Problem List Problem List: Activity Tolerance, Functional Strength, Safety Treatment/Plan Treatment Plan: Continue Plan of Care Treatment Plan: Bed Mobility, Education, Functional Activity Sujatha, Functional Strength, Group Therapy, Gait, Safety, Therapeutic Exercise, Transfers Treatment Duration: Aug 11, 2019 Frequency: At least 5 of 7 days/Wk (IRF) Estimated Hrs Per Day: 1.5 hours per day Patient and/or Family Agrees t: Yes Safety Risks/Education Patient Education: Transfer Techniques, Safety Issues Teaching Recipient: Patient Teaching Methods: Discussion Response to Teaching: Verbalize Understanding Discharge Recommendations Plan Plan discharge tomorrow. Time/GCodes Time In: 1330 Time Out: 1345 Total Billed Treatment Time: 15 Total Billed Treatment visit GT 15 JUANCARLOS ARELLANO PT Aug 05, 2019 14:04
--- NOTE | 2019-08-05 14:06 | NUR ---
RD ASSESSMENT PMHx: hypercholesterolemia; HTN; stroke; GERD; hiatal hernia; hypothyroidism; DM PT INTERACTION: Pt was awake and pleasant during nutrition follow-up. Pt states she has been eating swell since last assessment. Note avg PO intake >75% of meals. Pt states no issues with n/v sine last assessment. Pt states some issues with "a little constipation" since last assessment. Note last BM was 08/03 and pt currently on bowel regimen of colace BID; senna BID; and miralax BID, per chart review. ABNORMAL NUTRITION-RELATED LAB VALUES LOW: Pro 6.0 HIGH: BUN 22; cr 1.38; glu 129 Est. kcal needs: 4158-0475 kcal | 15-18 kcal/kg Est. Pro needs: 78-98 g Pro | 0.8-1.0 g Pro PES STATEMENT: Given pt PO intake, no nutrition diagnosis at this time (NO-1.1) INTERVENTION: Continue with current diet order of Regular diet. Pt may benefit from consistent CHO diet if blood glucose levels become elevated. Will continue to follow and reassess as pt needs, intake, and status change. MONITOR/EVALUATE: PO Intake; Plan of Care; Hydration Status; Weight Status; Lab Values Nina Ulrich, MS, RD, LD
--- NOTE | 2019-08-05 15:31 | NUR ---
CM/SS PATIENT CARE CONFERENCE SUMMARY Met with patient yesterday afternoon to review Summary and proposed discharge of 08/06/19. Patient expressed her readiness to discharge and her confidence she was safe to manage at home as before. Discussed with patient's spouse/primary caregiver Alessio this a.m. He states he is prepared for patient to return home, he was going for groceries today doing a few other things at the home. DME: Per Alessio, patient has a new FWW at home. She is being titrated off O2 at this time, will review in a.m. for any other equipment needs. HHC: Proposed for RN and PT, patient preferred agencies are [facility] or [facility], depending on availability. Alessio stated he is the one who has had poor health and limitations. He said of patient, "she is my life," that they have been 56 years and been through a lot of things together. He proposed picking her up at 1300, when patient was told she stated she wanted to go earlier. Patient and spouse to coordinate together. Finalize in a.m.
[2019-08-05 16:30] VITALS: BP 155/77
[2019-08-05 18:00] VITALS: BP 114/67
[2019-08-05] MEDS: ENOXAPARIN 40 MG/0.4 ML (LOVENOX) SYR SC SCH (20:35)
[2019-08-05] MEDS ORDERED: LISI-552 PO (21:08)
[2019-08-05] MEDS ORDERED: ASPI-983 PO (21:08)
[2019-08-05] MEDS ORDERED: HYDR-3923 PO (21:08)
[2019-08-05] MEDS ORDERED: AMLO5TAB9 PO (21:08)
--- NOTE | 2019-08-05 21:10 | D/C HH Face to Face Order ---
D/C Face to Face Orders Reconcile Patient Problems Problems Reviewed?: Yes Instructions for Patient Via [facility], Patient Instructions/FollowUp: Dr Wynn in [address] Rahman as scheduled Physician to follow Patient: [place] Discharge Diet for Home: No Restrictions Patient Problems: HTN Debility Goals for Patient: [place] Patient Data-Allergies,Ht & Wt Patient Allergies: Coded Allergies: codeine (Unverified Allergy, Unknown, "MAKES ME CRAZY", 08/13/15) Height (Feet): 5 Height (Inches): 6.00 Weight (Pounds): 250 Weight (Ounces): 3.0 Home Health Need/Face to Face Date of Face to Face: Aug 06, 2019 Clinical Findings: Generalized weakness and fatigue, Immune-compromised, Instability, Muscle weakness, Shortness of breath I have seen Pt sila-fs-qzyl: Yes Discharged To: Home Diagnosis/Conditions: HTN Debility Patient is Homebound due to: CognItive deficits, Muscle weakness Homebound Status Due to the above stated illness, injury or surgical procedure (medical condition or diagnosis) and associated clinical findings, the patient is homebound because of his/her inability to leave home except with aid of a supportive device and/or person AND leaving the home requires a considerable and taxing effort or is medically contraindicated. Pt req the following assistanc: Walker [facility] Nursing Orders Home Health Services Order: Nursing Services (monitor BP), Animal Handler- Evaluate & Treat, Physical Therapy-Evaluate & Treat Certify Stmt I certify that this patient is under my care and that I, a nurse practitioner or a physician; a executive marketing assistant working with me, had a face to face encounter that - meets the physician face to face encounter requirements with this patient as sonja ed. CARISSA PETERSON DO Aug 05, 2019 21:10
[2019-08-06 05:06] VITALS: BP 168/80
[2019-08-06 08:00] VITALS: BP 162/73
--- NOTE | 2019-08-06 08:00 | NUR ---
DENIES CONCERNS FOR GOING HOME. STATES DID NOT USE OXYGEN LAST NIGHT AND SLEPT WELL WITHOUT SOB. STERI STRIPS D/I MID CHEST FROM LOOP RECORDER. BP STABLE.
--- NOTE | 2019-08-06 08:09 | Therapy Team Discharge Summary ---
Therapy Discharge Summary Discharge Recommendations Date of Discharge Occupational Therapy Pt admits to ARU with CVA dx. Pt admitting QC's: eating 5, oral care 5, showering 4, UB 3, LB 3, footwear 3, and toilet hygiene 4. Pt and OT work towards higher functional IND through UB/ gross motor balance and strengthening, safety management, ADL retraining. Pt limited by decreased endurance. Pt d/c's home with with no OT home recommendations; pt did not reach all goals but increased IND within each area. Pt d/c QC's: eating 6, oral care 6, showering 4, UB 6, LB 4, footwear 6 (increased time), toilet hygiene 6. Pt d/c OT at this time. Decreased Activ Tolerance, Edema, Impaired I ADL's, Impaired Self-Care Skills PT Explosive Technician Goals Explosive Technician Goals PT [facility] Goals Time Frame: Aug 11, 2019 Roll Left to Right (QC): 6 Sit to Lying (QC): 6 Lying-Sitting on Side/Bed(QC): 6 Sit to Stand (QC): 6 Chair/Lqv-xx-Nbnpz Xfer(QC): 6 Car Transfer (QC): 6 Does the Patient Walk: Yes Walk 10 feet (QC): 6 Walk 10ft-Uneven Surface(QC): 6 Walk 50ft with 2 Turns (QC): 6 Walk 150 ft (QC): 6 Does the Pt use WC or Scooter?: No 1 Step (curb) (QC): 6 4 Steps (QC): 6 12 Steps (QC): 9 Picking up an Object (QC): 4 OT Chcf Goals Chcf Goals Time Frame: Aug 13, 2019 Eating (QC): 6 (met) Oral Hygiene (QC): 6 (met) Shower/Bathe Self (QC): 6 Upper Body Dressing (QC): 6 (met) Lower Body Dressing (QC): 6 On/Off Footwear (QC): 6 (met) Toileting Hygiene (QC): 6 (met) Toilet/Commode Transfer (QC): 6 Additional Goals: 1-Demonstrate ADL Tasks, 2-Verbalize Understanding, 3- ImproveStrength/Sujatha 1=Demonstrate adherence to instructed precautions during ADL tasks. 2=Patient will verbalize/demonstrate understanding of assistive dev ices/modifications for ADL. 3=Patient will improve strength/tolerance for activity to enable patient to perform ADL's. Speech Explosive Technician Goals Ch[facility] Goals Patient will improve cognitive-communication necessary for safety and daily living tasks with minimal assist. MICHELLE ESQUEDA OTR Aug 06, 2019 08:09
[2019-08-06] MEDS: lisINopril 20 MG (PRINIVIL) TABLET PO SCH (09:02)
[2019-08-06] MEDS: ASPIRIN E.C. 81 MG (ECOTRIN) TAB PO SCH (09:02)
[2019-08-06] MEDS: meTOproloL SUCCINATE 50 MG (TOPROL XL) TAB PO SCH (09:02)
[2019-08-06] MEDS: hydrALAZINE (APRESOLINE) 25 MG TAB PO SCH (09:02)
[2019-08-06] MEDS: amLODIPine 5 MG (NORVASC) TAB PO SCH (09:03)
[2019-08-06] MEDS: DOCUSATE SODIUM 100 MG (COLACE) CAP PO SCH (09:04)
[2019-08-06] MEDS: polyethylene glycoL POWDER 17 GM (MIRALAX) PACK PO SCH (09:04)
[2019-08-06] MEDS: SENNA W/DOCUSATE (SENOKOT S) TABLET PO SCH (09:04)
--- NOTE | 2019-08-06 09:21 | Therapy Team Discharge Summary ---
Therapy Discharge Summary Discharge Recommendations Date of Discharge 08/06/2019 Therapy D/C Recommendations: Physical Therapy Home Care Physical Therapy This patient was transferred to ARU post acute hospital stay secondary to AMS and hypertension. Upon admission to ARU, patient was min assist with transfers and bed mobility, min assist with gait 150 ft with FWW and on uneven surfaces and able to go up/down 1 step with min assist with FWW. Pt's treatment has consisted of functional strength, balance and safety training as well as functional activity tolerance progression. At last visit, pt was mod indep with all bed mobiltiy and transfers and able to walk mod indep with FWW 150ft. In addition, she was able to complete steps at a mod indep level. She has made good progress and has achieved all goals set at evaluation. Pt to discharge home this date with recommended HHC to follow. Occupational Therapy Decreased Activ Tolerance, Edema, Impaired I ADL's, Impaired Self-Care Skills PT Production Control Coordinating Clerk Goals Halfway Goals PT Halfway Goals Time Frame: Aug 11, 2019 Roll Left to Right (QC): 6 (met) Sit to Lying (QC): 6 (met) Lying-Sitting on Side/Bed(QC): 6 (met) Sit to Stand (QC): 6 (met) Chair/Eff-dx-Lyrva Xfer(QC): 6 (met) Car Transfer (QC): 6 (met) Does the Patient Walk: Yes Walk 10 feet (QC): 6 (met) Walk 10ft-Uneven Surface(QC): 6 (met) Walk 50ft with 2 Turns (QC): 6 (met) Walk 150 ft (QC): 6 (met) Does the Pt use WC or Scooter?: No 1 Step (curb) (QC): 6 (met) 4 Steps (QC): 6 (met) 12 Steps (QC): 9 Picking up an Object (QC): 4 (exceeded) OT Halfway Goals Halfway Goals Time Frame: Aug 13, 2019 Eating (QC): 6 (met) Oral Hygiene (QC): 6 (met) Shower/Bathe Self (QC): 6 Upper Body Dressing (QC): 6 (met) Lower Body Dressing (QC): 6 On/Off Footwear (QC): 6 (met) Toileting Hygiene (QC): 6 (met) Toilet/Commode Transfer (QC): 6 Additional Goals: 1-Demonstrate ADL Tasks, 2-Verbalize Understanding, 3-ImproveStrength/Sujatha 1=Demonstrate adherence to instructed precautions during ADL tasks. 2=Patient will verbalize/demonstrate understanding of assistive devices/modifications for ADL. 3=Patient will improve strength/tolerance for activity to enable patient to perform ADL's. Speech Halfway Goals Production Control Coordinating Clerk Goals Patient will improve cognitive-communication necessary for safety and daily living tasks with minimal assist. JUANCARLOS ARELLANO PT Aug 06, 2019 09:21
--- NOTE | 2019-08-06 11:27 | Discharge Summary ---
Diagnosis/Chief Complaint Date of Admission Jul 28, 2019 at 12:48 Date of Discharge Discharge Date: Aug 06, 2019 Discharge Diagnosis Assessment: HTN encephalopathy PAF? off Coumadin and now loop recorder placed 08/02/19 and placed on ASA HTN OOC improving with more meds Memory loss Hypoxia at night? Plan: Adding BP meds Dr Rahman appreciated Loop recorder OAC today IRF protocol Wean O2 Hydralazine 50mg BID along with Norvasc is working well DC today (1) Hypertensive encephalopathy Status: Acute (2) Non-insulin dependent type 2 diabetes mellitus Status: Chronic (3) Essential (primary) hypertension Status: Chronic (4) CVA (cerebral vascular accident) Status: Acute (5) Hypothyroidism (6) GERD (gastroesophageal reflux disease) (7) Anticoagulant prescribed (8) Status post placement of implantable loop recorder Discharge Summary Discharge Physical Examination Allergies: Coded Allergies: codeine (Unverified Allergy, Unknown, "MAKES ME CRAZY", 08/13/15) Vitals & I&Os Vital Signs Date Time Temp Pulse Resp B/P (MAP) Pulse Ox O2 Delivery O2 Flow Rate FiO2 08/06/19 14:46 36.6 92 20 162/73 92 Room Air 08/06/19 05:06 1.00 General Appearance: Alert, Oriented X3, Cooperative Respiratory: Clear to Auscultation Cardiovascular: Regular Rate Neuro: Normal Gait, Normal Speech, Strength at 5/5 X4 Ext Psych/Mental Status: Mental Status NL Hospital Course Was the Problem List Reviewed?: Yes Hospital course: Patient had an uneventful 9-day hospital course after she was moved from [facility] after what was assessed to be a stroke but MRI ruled that out with the diagnosis of hypertensive encephalopathy. Cardiology was consulted resulting in the placement of a loop recorder and placed on aspirin due to questionable paroxysmal atrial fibrillation but she had been on Coumadin for a long time but no regular pro time checks. Patient had significant chronic debility but she was able to participate in all therapies as required and hyp ertension ultimately improved and immense amount with the addition of multiple meds patient was then deemed stable for discharge with home health although she reluctantly agreed for home health she already had a walker at home and was discharged in improved condition. Labs (last 24 hrs) Laboratory Tests 07/29/19 05:32: White Blood Count 8.9, Red Blood Count 4.35, Hemoglobin 12.8, Hematocrit 41, Mean Corpuscular Volume 94, Mean Corpuscular Hemoglobin 29, Mean Corpuscular Hemoglobin Concent 31L, Red Cell Distribution Width 14.7H, Platelet Count 299, Mean Platelet Volume 10.0, Neutrophils (%) (Auto) 68, Lymphocytes (%) (Auto) 22, Monocytes (%) (Auto) 8, Eosinophils (%) (Auto) 1, Basophils (%) (Auto) 0, Neutrophils # (Auto) 6.1, Lymphocytes # (Auto) 2.0, Monocytes # (Auto) 0.7, Eosinophils # (Auto) 0.1, Basophils # (Auto) 0.0, Sodium Level 141, Potassium Level 3.7, Chloride Level 105, Carbon Dioxide Level 27, Anion Gap 9, Blood Urea Nitrogen 21H, Creatinine 1.44H, Estimat Glomerular Filtration Rate 35, BUN/Creatinine Ratio 15, Glucose Level 120H, Calcium Level 9.1, Corrected Calcium 9.7, Total Bilirubin 0.7, Aspartate Amino Transf (AST/SGOT) 12, Alanine Aminotransferase (ALT/SGPT) 10, Alkaline Phosphatase 60, Total Protein 5.7L, Albumin 3.3 08/02/19 06:20: White Blood Count 7.9, Red Blood Count 4.47, Hemoglobin 13.2, Hematocrit 42, Mean Corpuscular Volume 94, Mean Corpuscular Hemoglobin 30, Mean Corpuscular Hemoglobin Concent 31L, Red Cell Distribution Width 14.3, Platelet Count 283, Mean Platelet Volume 10.4, Neutrophils (%) (Auto) 63, Lymphocytes (%) (Auto) 24, Monocytes (%) (Auto) 10, Eosinophils (%) (Auto) 2, Basophils (%) (Auto) 0, Neutrophils # (Auto) 5.0, Lymphocytes # (Auto) 1.9, Monocytes # (Auto) 0.8, Eosinophils # (Auto) 0.2, Basophils # (Auto) 0.0, Sodium Level 139, Potassium Level 4.0, Chloride Level 102, Carbon Dioxide Level 28, Anion Gap 9, Blood Urea Nitrogen 22H, Creatinine 1.38H, Estimat Glomerular Filtration Rate 37, BUN/Creatinine Ratio 16, Glucose Level 129H, Calcium Level 9.8, Corrected C alcium 10.2H, Total Bilirubin 0.5, Aspartate Amino Transf (AST/SGOT) 19, Alanine Aminotransferase (ALT/SGPT) 20, Alkaline Phosphatase 66, Total Protein 6.0L, Albumin 3.5 Pending Labs Laboratory Tests 07/29/19 05:32: White Blood Count 8.9, Red Blood Count 4.35, Hemoglobin 12.8, Hematocrit 41, Mean Corpuscular Volume 94, Mean Corpuscular Hemoglobin 29, Mean Corpuscular Hemoglobin Concent 31, Red Cell Distribution Width 14.7, Platelet Count 299, Mean Platelet Volume 10.0, Neutrophils (%) (Auto) 68, Lymphocytes (%) (Auto) 22, Monocytes (%) (Auto) 8, Eosinophils (%) (Auto) 1, Basophils (%) (Auto) 0, Neutrophils # (Auto) 6.1, Lymphocytes # (Auto) 2.0, Monocytes # (Auto) 0.7, Eosinophils # (Auto) 0.1, Basophils # (Auto) 0.0, Sodium Level 141, Potassium Level 3.7, Chloride Level 105, Carbon Dioxide Level 27, Anion Gap 9, Blood Urea Nitrogen 21, Creatinine 1.44, Estimat Glomerular Filtration Rate 35, BUN/Creatinine Ratio 15, Glucose Level 120, Calcium Level 9.1, Corrected Calcium 9.7, Total Bilirubin 0.7, Aspartate Amino Transf (AST/SGOT) 12, Alanine Aminotransferase (ALT/SGPT) 10, Alkaline Phosphatase 60, Total Protein 5.7, Albumin 3.3 08/02/19 06:20: White Blood Count 7.9, Red Blood Count 4.47, Hemoglobin 13.2, Hematocrit 42, Mean Corpuscular Volume 94, Mean Corpuscular Hemoglobin 30, Mean Corpuscular Hemoglobin Concent 31, Red Cell Distribution Width 14.3, Platelet Count 283, Mean Platelet Volume 10.4, Neutrophils (%) (Auto) 63, Lymphocytes (%) (Auto) 24, Monocytes (%) (Auto) 10, Eosinophils (%) (Auto) 2, Basophils (%) (Auto) 0, Neutrophils # (Auto) 5.0, Lymphocytes # (Auto) 1.9, Monocytes # (Auto) 0.8, Eosinophils # (Auto) 0.2, Basophils # (Auto) 0.0, Sodium Level 139, Potassium Level 4.0, Chloride Level 102, Carbon Dioxide Level 28, Anion Gap 9, Blood Urea Nitrogen 22, Creatinine 1.38, Estimat Glomerular Filtration Rate 37, BUN/Creatinine Ratio 16, Glucose Level 129, Calcium Level 9.8, Corrected Calcium 10.2, Total Bilirubin 0.5, Aspartate Amino Transf (AST/SGOT) 19, Alanine Aminotransferase (ALT/SGPT) 20, Alkaline Phosphatase 66, Total Protein 6.0, Albumin 3.5 Discharge Home Medications: Active Scripts Active Aspirin EC (Aspirin) 81 Mg Tablet.dr 81 Mg PO DAILY Lisinopril 20 Mg Tablet 20 Mg PO DAILY Amlodipine Besylate 5 Mg Tablet 5 Mg PO DAILY Hydralazine HCl 25 Mg Tablet 50 Mg PO BID Reported Metoprolol Succinate 50 Mg Tab.er.24h 50 Mg PO DAILY Budesonide-Formoterol 160-4.5 (Budesonide/Formoterol Fumarate) 10.2 Gm Hfa.aer.ad 2 Puff PO BID Instructions to patient/family Please see electronic discharge instructions given to patient. Diagnosis/Problems Diagnosis/Problems (1) Hypertensive encephalopathy Status: Acute (2) Non-insulin dependent type 2 diabetes mellitus Status: Chronic (3) Essential (primary) hypertension Status: Chronic (4) CVA (cerebral vascular accident) Status: Acute (5) Hypothyroidism (6) GERD (gastroesophageal reflux disease) (7) Anticoagulant prescribed (8) Status post placement of implantable loop recorder Clinical Quality Measures DVT/VTE Risk/Contraindication: Risk Factor Score Per Nursin RFS Level Per Nursing on Admit: 4+=Very High CARISSA PETERSON DO Aug 06, 2019 11:27
--- NOTE | 2019-08-06 12:29 | NUR ---
CM/SS DISCHARGE Patient discharged home with her spouse as planned, he is planning bean picker machine operator at 1300. IMM2 presented to patient, signed, charted. HHC: Medicare Compare provided to patient, coordinated [facility] RN PT OT with her preferred agency, [facility]. DME: Spouse confirmed that all necessary DME was at the home, no new needs. Patient has been weaned off O2. Unit RN updated of all arrangements.
--- NOTE | 2019-08-06 13:13 | Therapy Team Discharge Summary ---
Therapy Discharge Summary Discharge Recommendations Date of Discharge Therapy D/C Recommendations: Physical Therapy Home Care Occupational Therapy Decreased Activ Tolerance, Edema, Impaired I ADL's, Impaired Self-Care Skills Speech-Language Pathology Patient was admitted to the ARU s/p CVA. Patient received ST for improving cognitive skills in order to return safely home. The patient met all of her ST goals. She discharged home this date where she lives with her . PT Skilled Nursing Goals Computer [employer] Para Professional Goals PT Skilled Nursing Goals Time Frame: Aug 11, 2019 Roll Left to Right (QC): 6 (met) Sit to Lying (QC): 6 (met) Lying-Sitting on Side/Bed(QC): 6 (met) Sit to Stand (QC): 6 (met) Chair/Fsw-ut-Mlctc Xfer(QC): 6 (met) Car Transfer (QC): 6 (met) Does the Patient Walk: Yes Walk 10 feet (QC): 6 (met) Walk 10ft-Uneven Surface(QC): 6 (met) Walk 50ft with 2 Turns (QC): 6 (met) Walk 150 ft (QC): 6 (met) Does the Pt use WC or Scooter?: No 1 Step (curb) (QC): 6 (met) 4 Steps (QC): 6 (met) 12 Steps (QC): 9 Picking up an Object (QC): 4 (exceeded) OT Computer Lab Para Professional Goals Skilled Nursing Goals Time Frame: Aug 13, 2019 Eating (QC): 6 (met) Oral Hygiene (QC): 6 (met) Shower/Bathe Self (QC): 6 Upper Body Dressing (QC): 6 (met) Lower Body Dressing (QC): 6 On/Off Footwear (QC): 6 (met) Toileting Hygiene (QC): 6 (met) Toilet/Commode Transfer (QC): 6 Additional Goals: 1-Demonstrate ADL Tasks, 2-Verbalize Understanding, 3-ImproveStrength/Sujatha 1=Demonstrate adherence to instructed precautions during ADL tasks. 2=Patient will verbalize/demonstrate understanding of assistive devices/modifications for ADL. 3=Patient will improve strength/tolerance for activity to enable patient to perform ADL's. Speech Skilled Nursing Goals Computer Lab Para Professional Goals Patient will improve cognitive-communication necessary for safety and daily living tasks with minimal assist. VICKI GUZMÁN Aug 06, 2019 13:13
[2019-08-06 14:46] VITALS: BP 162/73
--- NOTE | 2019-08-06 17:04 | NUR ---
CM/SS UPDATE. Patient refused HHC, there will be no services opened even though they were recommended and arranged.
== END 2019-08-06 13:00 | disposition home or self-care (01) | DRG 42 ==
PROVIDERS: ADMIT Internal Medicine; ATTEND Internal Medicine
PROC: 0JH632Z Insertion of Monitoring Device into Chest Subcutaneous Tissue and Fascia, Percutaneous Approach (ICD-10-PCS; principal; 2019-08-02)
DX: I67.4 Hypertensive encephalopathy (principal); E78.5 Hyperlipidemia, unspecified; E11.9 Type 2 diabetes mellitus without complications; I25.10 Atherosclerotic heart disease of native coronary artery without angina pectoris; E66.9 Obesity, unspecified; Z68.35 Body mass index [BMI] 35.0-35.9, adult; K21.9 Gastro-esophageal reflux disease without esophagitis; K44.9 Diaphragmatic hernia without obstruction or gangrene; E03.9 Hypothyroidism, unspecified; F41.9 Anxiety disorder, unspecified; R41.3 Other amnesia; Z79.01 Long term (current) use of anticoagulants; Z87.891 Personal history of nicotine dependence; Z86.73 Personal history of transient ischemic attack (TIA), and cerebral infarction without residual deficits; Z90.710 Acquired absence of both cervix and uterus
CPT/HCPCS: 33285; 36415; 80053; 85025; 93306; 93880